=== PATIENT | female | born 1960 | race Caucasian/White ===

== ENCOUNTER → 2017-09-26 16:30 | Day surgery (SDC) | payer BC, SELFPAY ==
--- NOTE | 2017-09-19 16:13 | EKG12_ITS ---
Test Reason : PRE-OP Blood Pressure : / mmHG Vent. Rate : 067 BPM Atrial Rate : 067 BPM P-R Int : 158 ms QRS Dur : 074 ms QT Int : 394 ms P-R-T Axes : 064 -24 019 degrees QTc Int : 416 ms Normal sinus rhythm Inferior infarct , age undetermined Cannot rule out Anterior infarct , age undetermined Abnormal ECG Confirmed by NATHALIA SARABIA, NADYA ([id number]), scientific editor SOL TERRY ([id number]) on 09/21/2017 11:45:06 AM Referred By: Dany Levine Confirmed By:NADYA SLOAN MD
[2017-09-19 17:10] LABS: Hemoglobin A1c 6.8 % (4.2-6.3)
[2017-09-19 17:16] LABS: Anion Gap 7 (5-15); BUN 21 mg/dL (7-18); BUN/Creat Ratio 18.3 RATIO (10-20); Calcium,Total 9.1 mg/dL (8.5-10.1); Chloride 105 mmol/L (98-107); Creatinine, Serum 1.15 mg/dL (0.55-1.02); EST Glomerular Filtration Rate 52 mL/min (>60); Est Glom Filt Rate - Afr Amer 62 mL/min (>60); Glucose 116 mg/dL (74-106); Potassium 4.3 mmol/L (3.5-5.1); Sodium Level 142 mmol/L (136-145)
[2017-09-26] VITALS (7 sets, daily range): BP systolic 132–173; BP diastolic 71–96; PULSE 51–69; RESP 16; TEMP 36.4–36.9; O2SAT 92–100; BMI 38.7
[2017-09-26] MEDS: Cefazolin 2 GM in 0.9% Normal Saline 100 ML IV (13:02)
--- NOTE | 2017-09-26 13:03 | DCINST_ITS ---
Discharge Diet: Light diet - advance as tolerated Discharge Activity: May Not Drive - for 2-3 days or while taking narcotic pain medications., - - Do not drive, work heavy equipment or sign legal documents for 24 hours. May shower in (days): 1 - with the bandage in place. Additional Activity Instructions:: Pain medication may cause nausea. You should typically eat light foods as you take your pain medications. Pain medication may also cause constipation. If this is a problem for you, please discuss with your doctor. Call your doctor if your incision/area has: Continuous Slow Oozing, Sudden Increased Bleeding, Increased Pain/ Swelling, Increased Redness, Foul Smelling Discharge Call your doctor if you observe: Fever of 101 or Higher Suture Line Care: Avoid Pulling/Pushing, Avoid Pinching/Bending Additional Dressing/Incision Instructions:: Leave operative bandaids on for 2 days. When you remove dressing, leave Steri-Strips on until your follow-up appointment, or until the Steri-Strips fall off on their own. Allergies/Adverse Reactions: Allergies diclofenac sodium [From Voltaren] Adverse Reaction (Verified 09/19/17 12:59) Nausea/Vom/Diarrhea nabumetone [From Relafen] Adverse Reaction (Verified 09/19/17 12:59) GI UPSET Medications to take at Discharge Clonidine HCl [Catapres] 0.1 mg PO BID 07/22/14 traZODone [Desyrel] 50 mg PO QHS 10/14/14 Celecoxib [Celebrex] 200 mg PO DAILY 03/16/16 Atorvastatin Calcium [Lipitor] 20 mg PO QHS 04/15/16 Lactobacillus acidophilus 1.5 mg (250 million cell) capsule 100 mmu cells PO QDAY 09/18/17 aspirin 81 mg tablet,delayed release 81 mg PO QDAY 09/18/17 calcium carbonate 600 mg calcium (1,500 mg) tablet 600 mg PO BID tab 09/18/17 levothyroxine 137 mcg capsule 137 mcg PO QDAY 09/18/17 rizatriptan 10 mg tablet 10 mg PO PRN PRN 09/18/17 Calcium Carbonate [Calcium] 500 mg PO DAILY 09/19/17 Oxycodone HCl/Acetaminophen [Percocet 5/325] 1 - 2 tab PO Q4H PRN PRN 4 Days # 30 tab 09/26/17 The following prescriptions were given: Oxycodone HCl/Acetaminophen [Percocet 5/325] 1 - 2 tab PO Q4H PRN PRN 4 Days # 30 tab PRN Reason: Pain Primary Care Physician: Rea Escobar MD [Primary Care Provider] - Test Results: Test results from this visit will be discussed in further detail at your follow- up appointment, if applicable. Please Follow Up With: Dany Levine MD - Please call [phone] to schedule an appointment. When: 7 days after your surgery.
--- NOTE | 2017-09-26 13:03 | PCM.OPRPT ---
Problem List (1) Calculus of gallbladder with chronic cholecystitis without obstruction Status: Acute (2) Right upper quadrant pain Status: Acute Report of Operation Date of Procedure: 09/26/17 Pre-Operative Diagnosis: k80.10 calculus of the gallbladder without biliary obstruction. R10.11 upper quadrant abdominal pain Surgery/Procedure Performed:: Laparoscopic cholecystectomy Type of Anesthesia:: General Anesthesiologist: Naif Aceves Estimated Blood Loss (mL): < 25 cc Description of Procedure: Patient was brought in the operating room. Placed in the supine position. Under excellent general endotracheal Bashan the abdomen was sterilely prepped and draped in usual fashion. Local was injected in for umbilical. Dissection was carried down to the fascia. The fascia was grasped with a [place]. Varies needle was placed inside the abdomen. The abdomen was insufflated to 15 torr. A 10/12 trocar was placed without difficulty. Patient was placed in the head up and rotated to the left position. A subxiphoid #5 trocar was placed, inferior to this another #5 trocar was placed, laterally a #5 trocar was placed. All these under direct visualization without injury to underlying structures. Patient had moderate amount of adhesions which were taken down from the gallbladder with use of electrocautery fundus of the gallbladder was grasped retracted in a cephalad direction infundibulum was grasped retracted laterally I dissected out the cystic duct was hemoclips proximally and distally and ligated the duct identified the cystic artery placed hemoclips proximally distally ligated the artery deliver the gallbladder from the gallbladder bed in the process of doing this I placed another Hemoclip on the posterior branch of the cystic artery. Deliver the gallbladder from the gallbladder bed with use of electrocautery and had excellent hemostasis and no spillage of bile or stones I placed a specimen in a specimen bag and delivered it through the umbilical port without difficulty I reirrigated the right upper quadrant good hemostasis was noted to remove the trochars under direct visualization good hemostasis was noted I closed the fascia the umbilical port with a [id number] stitch of 0 Vicryl skin incisions were closed with some particular stitches of 4-0 Monocryl Steri-Strips are applied sterile dressings were applied the patient tolerated the procedure well. - Admit VTE Documentation VTE Present on Admission: No VTE Mechan Device Prophylaxis: SCD's VTE Pharm Prophylaxis ordered?: No Reason prophylaxis not ordered:: Treatment Not Indicated
--- NOTE | 2017-09-26 13:20 | GALL_PTH ---
PATIENT: NIMESH KOROMA LOC: [facility] – [place] U#:[id number] AGE/SX: 57/F ROOM: RE09/26/[address]: Dr. Dany Levine MD : 1960 BED: DIS: 09/26/2017 SPEC #: [id number] RECD: 09/26/17 16:03 STATUS: FREDRICK BRANT #: [id number] KITTY: 09/26/17 13:[address]: Dany Levine DEPT: SURGICAL PATHOLOGY RECD BY: Altaf Perez ENTERED: 09/27/17 12:58 SP TYPE: CASTRO POOLE DR: Dr. Rea Escobar MD Tissues: Gallbladder, NOS Procedures: Surgery Specimen Level III HEADER OPERATION: Laparoscopic cholecystectomy PRE-OP DIAGNOSIS: Calculus of gallbladder with chronic cholecystitis without obstruction, right upper quadrant abdominal pain TISSUE SUBMITTED: Gallbladder MICROSCOPIC DIAGNOSIS Gallbladder, cholecystectomy: Cholesterolosis, mild chronic cholecystitis and cholelithiasis. AM:stephanie 09/28/17 MICROSCOPIC DESCRIPTION Slides are reviewed. GROSS DESCRIPTION Received is one container labeled with the patient's name and designated gallbladder. The specimen consists of a gallbladder measuring 9 cm in length and up to 3.5 cm in diameter. The external surface is pink-mendes, smooth and glistening for the most part. Focally it is granular, hemorrhagic and contains cautery artifact. The gallbladder contains green-yellow mucoid bile and multiple, multifaceted black stones measuring in aggregate 5 x 5 x 2 cm and 0.4 to 1 cm in greatest dimension. The mucosa is bile-stained and without any mass lesions. The gallbladder wall measures up to 0.1 cm in thickness. Mastercam Programmer sections from the gallbladder and the cystic duct are submitted in one cassette. / SJ:stephanie 09/27/17 TC:3 CPT: 49638
[2017-09-26] MEDS: Bupivacaine Mpf 0.5% 30 ML VIAL (13:41)
[2017-09-26 15:16] LABS: Bedside Glucose 121 mg/dL (70-110)
== END | disposition home or self-care (01) ==
LOC: SDC 16:30
PROVIDERS: Family Provider Internal Medicine; PCP Internal Medicine; Visit Provider Surgery
PROC: (CPT 47562; principal; 2017-09-26 13:00)
DX: K80.10 Calculus of gallbladder with chronic cholecystitis without obstruction (principal); R10.11 Right upper quadrant pain; E11.9 Type 2 diabetes mellitus without complications; E78.00 Pure hypercholesterolemia, unspecified
CPT/HCPCS: 00790; 47562; 36415; 80048; 82962; 83036; 84443; 88304; 93005; J7120; J2405

== ENCOUNTER → 2018-04-12 17:58 | Outpatient (CLI) | payer BC, SELFPAY | PROVIDERS: Family Provider Internal Medicine; PCP Internal Medicine; Referring Provider Nurse Practitioner Adult Health; Visit Provider Nurse Practitioner Adult Health | DX: R30.0 Dysuria (principal); R35.0 Frequency of micturition | CPT/HCPCS: 87086; 87088 ==

== ENCOUNTER → 2018-05-01 10:53 | Outpatient (CLI) | payer BC, SELFPAY ==
--- NOTE | 2018-05-01 10:57 | ART_ITS ---
Reason For Study: I89.8 Procedure A bilateral lower extremity continuous wave Doppler with analog waveform analysis,segmental pressures,and ankle brachial indexes without exercise. Left Segmental Pressures Left brachial= 159mmHg. Left posterior tibial artery = 176mmHg. Left dorsalis pedis artery = 167mmHg. Left digit = 122 mmHg. The left dorsalis pedis waveforms are triphasic. The left posterior tibial artery waveforms are triphasic. Right Segmental Pressures Right brachial= 147mmHg. Right posterior tibial artery = 171mmHg. Right dorsalis pedis artery = 170mmHg. Right digit = 129 mmHg. The right dorsalis pedis waveforms are triphasic. The right posterior tibial artery waveforms are triphasic. Indices The right ankle brachial index by the dorsalis pedis is 1.1. The right ankle brachial index by the posterior tibial artery is 1.1. The right digital-brachial index is .81. The left ankle brachial index by the dorsalis pedis is 1.1. The left ankle brachial index by the posterior tibial artery is 1.1. The left digital-brachial index is .77. Interpretation Summary Triphasic Doppler waveforms are noted at ankle level bilaterally. Pulse-volume waveform amplitudes appear satisfactory at all levels bilaterally. Resting ankle-brachial indices are normal bilaterally. Digital-brachial indices are bilaterally normal. There is no evidence of significant atherosclerotic peripheral arterial occlusive disease bilaterally. Ordering Physician: Bernarda Brown Referring Physician: Bernarda Brown Performed By: Josephine Macdonald RVT
== END ==
PROVIDERS: Family Provider Internal Medicine; PCP Internal Medicine; Referring Provider Podiatrist Foot & Ankle Surgery; Visit Provider Podiatrist Foot & Ankle Surgery
DX: I87.2 Venous insufficiency (chronic) (peripheral) (principal)
CPT/HCPCS: 93923

== ENCOUNTER → 2018-05-15 12:24 | Outpatient (CLI) | payer BC, SELFPAY ==
[2017-09-26 11:14] VITALS: BMI 38.7
== END ==
PROVIDERS: Family Provider Internal Medicine; PCP Internal Medicine; Referring Provider Podiatrist Foot & Ankle Surgery; Visit Provider Podiatrist Foot & Ankle Surgery
DX: M79.671 Pain in right foot (principal)
CPT/HCPCS: 36415; 82306

== ENCOUNTER 2018-05-29 23:45 | Observation (INO) | payer BC, SELFPAY ==
--- NOTE | 2018-05-23 13:13 | RAD_ITS ---
STUDY: X-RAY CHEST REASON FOR EXAM: Female, 58 years old. Preoperative evaluation. TECHNIQUE: PA and lateral views of the chest. COMPARISON: Comparison is made with prior study dated March 16, 2016. FINDINGS: The lungs are clear and expanded. Scattered calcified granulomas. There is no demonstrated pleural abnormality. Normal size heart. Normal mediastinum and angela. Normal visualized pulmonary arteries. Normal visualized aortic arch and descending thoracic aorta. There are degenerative changes of the visualized thoracic spine. Normal visualized ribs, clavicles, and shoulders. There is no demonstrated abnormality of the visualized soft tissue structures of the upper abdomen. RAD/Chest PA and Lateral IMPRESSION: Normal x-ray examination of the chest. Electronically Signed: Suleiman Garcia, at 13:43 EDT , Service support ,
--- NOTE | 2018-05-23 13:30 | EKG12_ITS ---
Test Reason : PREOP Blood Pressure : / mmHG Vent. Rate : 062 BPM Atrial Rate : 062 BPM P-R Int : 162 ms QRS Dur : 080 ms QT Int : 412 ms P-R-T Axes : 047 -22 033 degrees QTc Int : 418 ms Normal sinus rhythm Cannot rule out Anterior infarct (cited on or before 19-SEP-2017), age undetermined Abnormal ECG Confirmed by RIAZ LEMONS MD ([id number]), commercial production editor JITENDRA LANCASTER ([id number]) on 05/25/2018 10:56:52 AM Referred By: Bernarda Brown Confirmed By:RIAZ LEMONS MD
[2018-05-23 13:37] LABS: Absolute Lymphocyte Count 2.66 X10^3/ul (0.83-4.51); Absolute Neutrophil Count 3.7 X10^3/uL (2.0-7.7); Basophil# 0.02 X10^3/uL; Basophil% 0.3 % (0-1); Eosinophil# 0.13 X10^3/uL; Eosinophils% 1.9 % (0-5); Hematocrit 44.9 % (37-47); Hemoglobin 14.5 g/dl (12.0-15.0); Lymphocyte # 2.66 X10^3/ul (4.0); Lymphocyte % 38.7 % (19-41); Mean Corp Hgb Conc 32.3 g/gl (32-36); Mean Corpuscular Volume 89.8 fL (81-99); Mean Platelet Vol. 10.3 fl (6.2-12.0); Monocyte% 5.8 % (0-10); Neutrophil # 3.67 X10^3/uL (2.7-7.7); Neutrophil % 53.3 % (47-70); Platelet Count 253 K/mm3 (150-450); RBC Distribution Width CV 13.3 % (11.6-14.6); RBC Distribution Width SD 43.6 fl (35.1-43.9); White Blood Count 6.9 K/mm3 (4.4-11.0)
[2018-05-23 13:38] LABS: POSITIVE COUNT NO; POSITIVE DIFFERENTIAL NO; POSITIVE MORPHOLOGY NO
[2018-05-29 09:59] VITALS: BP 127/82; PULSE 73; RESP 16; TEMP 36.5; O2SAT 96; BMI 38.1
[2018-05-29 10:26] LABS: Bedside Glucose 134 mg/dL (70-110)
[2018-05-29] MEDS: Cefazolin 2 GM in 0.9% Normal Saline 100 ML IV (16:25)
--- NOTE | 2018-05-29 16:35 | RAD_ITS ---
STUDY: X-RAY - RIGHT FOOT CLINICAL: Female, 58 years old. Subtalar and talonavicular joint fusion TECHNIQUE: The C-arm is used. COMPARISON: None. FINDINGS: There are multiple sequential images presented. The final image shows 2 medullary screws traversing the subtalar joints and starting from the posterior margin of the os calcis. The tips are within the anterior process of the talus. A plate and multiple screws bridging the talus and navicular bone are also seen. The hardware is in good position. There are no acute fractures. There is a prominent plantar calcaneal spur. RAD/Foot min 3 Views IMPRESSION: Subtalar and talonavicular joint fusion A prominent plantar calcaneal spur Electronically Signed: Ti Chaudhari MD at 2:12 EDT Tel , Service support ,
[2018-05-29] MEDS: Calcium Chloride 1 GM/10 ML Syringe (17:18)
[2018-05-29] MEDS: Heparin 10,000 UNITS/10 ML Vial 10000 UNITS (17:19)
[2018-05-29 23:24] VITALS: BP 127/82; BP 156/91; PULSE 84; RESP 18; TEMP 36.3; O2SAT 98
--- NOTE | 2018-05-29 23:29 | RAD_ITS ---
STUDY: X-RAY - RIGHT TIBIA AND FIBULA REASON FOR EXAM: Female, 58 years old. Status post bmac proximal tibia TECHNIQUE: Or focal view(s) of the tibia and fibula were obtained. COMPARISON: None. FINDINGS: 3 small visualized proximal are seen in the anterior proximal aspect of the tibia. The adjacent soft tissues slightly irregular. There are mild degenerative changes of the knee Electronically Signed: Ti Chaudhari MD at 4:44 EDT Tel , Service support , RAD/Tibia & Fibula 2 Views
--- NOTE | 2018-05-29 23:32 | RAD_ITS ---
STUDY: X-RAY - RIGHT CALCANEUS REASON FOR EXAM: Female, 58 years old. Subtalar joint fusion. Talonavicular joint fusion TECHNIQUE: 2 view(s) of the calcaneus were obtained. COMPARISON: None. FINDINGS: There is evidence of the subtalar joint fusion demonstrated by the presence of screws running from the posterior margin of the os calcis through the subtalar joints with their tips in the talus. A plate and screws also identified bridging the navicular and talus. There is a prominent plantar calcaneal spur. There are no fractures. A backsliding simply RAD/Calcaneus min 2 Views IMPRESSION: Subtalar joint fusion.. Talonavicular joint fusion Electronically Signed: Ti Chaudhari MD at 4:13 EDT Tel , Service support ,
--- NOTE | 2018-05-29 23:33 | PCM.CONS.GEN ---
Reason for Consult Date of Consultation: 05/29/18 Reason for Consultation: Medical management. History of Present Illness: Medical diagnoses: Diabetes mellitus type 2, diet controlled Obesity GERD Hypertension Migraines Hypothyroidism status post thyroid resection secondary to precancer The patient is a 58 y/o F w/ PMHx: Diet controlled Diabetes mellitus type II, Obesity, GERD, HTN, Migraines, Hypothyroidism s/p thyroid resection secondary to precancer who presents to the [facility] on 05/29/18 for planned R flat foot reconstruction per Dr. Brown. Operative intervention trended late and patient transitioned to PACU nearing midnight; therefore, patient admitted for observation overnight and requested Medical co-admission assistance. Patient in PACU receiving block to assist in pain control. In the PACU aside from this patient denies any acute complaints. Past Medical History Medical History: Medical History (Last Reviewed 05/29/18 @ 23:48 by Bernarda Brown DPM) Hypercholesteremia (Acute) E78.00 Nontoxic nodular goiter (Acute) E04.9 Greater trochanteric bursitis (Acute) M70.60 Lumbago (Acute) M54.5 Dysmetabolic syndrome X (Acute) E88.81 DJD (degenerative joint disease) of pelvis (Acute) M16.10 Diabetes mellitus (Acute) E11.9 DDD (degenerative disc disease), lumbar (Acute) M51.36 Common migraine without intractability (Acute) G43.009 Allergies cortisone Adverse Reaction (Verified 05/29/18 09:58) Other lightheaded, injection site burning diclofenac sodium [From Voltaren] Adverse Reaction (Verified 05/29/18 09:58) Nausea/Vom/Diarrhea nabumetone [From Relafen] Adverse Reaction (Verified 05/29/18 09:58) GI UPSET Home Medications: Ambulatory Orders Medication Instructions Recorded Clonidine HCl [Catapres] 0.1 mg PO QHS 07/22/14 traZODone [Desyrel] 50 mg PO QHS 10/14/14 Celecoxib [Celebrex] 200 mg PO DAILY 03/16/16 Atorvastatin Calcium [Lipitor] 20 mg PO QHS 04/15/16 levothyroxine 137 mcg capsule 125 mcg PO QHS 09/18/17 rizatriptan 10 mg tablet 10 mg PO PRN PRN 09/18/17 Calcium Carbonate [Calcium] 600 mg PO DAILY 09/19/17 Oxycodone [Oxyir] 5 mg PO Q6H PRN PRN 7 Days #30 tab 05/29/18 Surgical History: Surgical History (Last Reviewed 05/29/18 @ 23:48 by Bernarda Brown DPM) Hx of cholecystectomy (Acute) Z90.49 09/26/17 History of back surgery (Acute) Z98.890 History of right hip replacement (Acute) Z96.641 01/2016 History of left hip replacement (Acute) Z96.642 10/2011 Hx of thyroidectomy (Acute) E89.0 2008 Surgical History: - - Thyroidectomy, bilateral total hip replacement, back surgery, cholecystectomy, recent right foot reconstruction. 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 Paternal Family History: Family History (Last Reviewed 10/10/17 @ 09:50 by Robyn Schneider) Mother Malignant hyperthermia due to anesthesia Diabetes Heart disease Kidney disease CVA (cerebral vascular accident) Father Thyroid disorder Brother Asthma Cancer History Items: - - Father with a history of thyroid disorder. Review of Systems Constitutional: Reports: Malaise, Weakness, Fatigue. Denies: Chills, Fever, Weight Change HEENT: Denies: Head Aches, Sinus Congestion, Sinus Drainage Cardiovascular: Denies: Chest Pain, Palpitations Respiratory: Denies: Cough, Shortness of breath at rest, Sputum production Gastrointestinal: Denies: Abdominal Pain, Nausea, Vomiting Genitourinary: Denies: Dysuria Musculoskeletal: Reports: Foot Pain, Joint Pain, Joint stiffness, Joint swelling, Joint Tenderness, Leg Pain Skin: Denies: Rash, Wounds Neurological: Denies: Numbness, Tingling, Focal weakness Psychiatric: Denies: Anxiety, Depression, Homicidal Ideations, Suicidal Ideations Hematologic/ Lymphatic: Denies: Easy Bruising, Easy Bleeding Subjective: Seated upright in the PACU bed, fatigued appearance, block currently being performed. Objective: Physical Examination: General: awake, alert, oriented x 3 and cooperative, seated upright in the PACU bed block being currently performed for right foot pain. Skin: normal color, turgor, no icterus, cyanosis, status post recent right foot reconstructive surgery, dressings in place. HEENT: AT/NC, EOMI, PERRLA, moderately dry MM, no carotid bruits or JVD noted. Lungs: CTA bilaterally, moderate effort, mild decrease BL bases, no rales, ronchi or wheezing. Heart: Regular rate and rhythm; no gallop, rub audible. Abdomen: soft, obese, NTTP, ND, normal BS, no HSM. Extremities: no cyanosis, clubbing, s/p R reconstructive foot surgery with dressing in place, recent block performed. Neurological: patient awake, alert, oriented x 3; cognitive function intact; pupils equally reactive to light and accomodation; cranial nerves II-XII grossly normal, moving extremities except recent block performed on right lower extremity, reduced as expected, strength accordingly severely globally decreased given recent operative interventions. Psychiatric: affect appears fatigued, mildly flat, no acute evidence of depressive or anxiety feelings. - Physical Exam Vital Signs Temp Pulse Resp BP Pulse Ox 97.7 F L 73 16 127/82 H 96 05/29/18 09:59 05/29/18 09:59 05/29/18 09:59 05/29/18 09:59 05/29/18 09:59 Oxygen Delivery Method Room Air Weight: 229 lb 0.964 oz Body Mass Index (BMI) 38.1 Finger Stick Blood Glucose 136 POC Glucose 05/29/18 10:04 POC Glucose 134 H Assessment/Plan All Active Problems (Last Reviewed 05/29/18 @ 23:48 by Bernarda Brown DPM) Hx of cholecystectomy (Acute) Calculus of gallbladder with chronic cholecystitis without obstruction (Acute) Right upper quadrant pain (Acute) History of back surgery (Acute) History of right hip replacement (Acute) History of left hip replacement (Acute) Hx of thyroidectomy (Acute) Hypercholesteremia (Acute) Nontoxic nodular goiter (Acute) Greater trochanteric bursitis (Acute) Lumbago (Acute) Dysmetabolic syndrome X (Acute) DJD (degenerative joint disease) of pelvis (Acute) Diabetes mellitus (Acute) DDD (degenerative disc disease), lumbar (Acute) Common migraine without intractability (Acute) The patient is a 58 y/o F w/ PMHx: Diet controlled Diabetes mellitus type II, Obesity, GERD, HTN, Migraines, Hypothyroidism s/p thyroid resection secondary to precancer who presents to the [facility] on 05/29/18 for planned R flat foot reconstruction per Dr. Brown. (1) Chronic right foot pain, Flat Footed: Failed conservative therapies and treatments, admitted per Dr. Brown with Hospitalist co-admitting, s/p R foot reconstructive surgery, post-operative pain management, bowel regimen, DVT Prophylaxis, PT/OT/CM per Podiatric surgery discretion. Nonweightbearing, elevation right lower extremity, icing, PT consulted for crutch training. (2) Diabetes mellitus type II: Not on regimen, diet controlled, ADA diet, accu checks w/ ISS. (3) Hypertension: Continue home regimen including clonidine, PRN hydralazine. (4) Hypothyroidism: Status post history of thyroid resection secondary to precancerous findings, will continue home synthroid regimen. (5) Obesity: Weight loss and lifestyle changes encouraged. (6) Migraines: We will continue PRN abortive agents. (7) GERD: PPI. (8) DVT prophylaxis: Per discretion of injury, podiatry given recent surgical intervention. Code Visit Office Visits / Consults: [id number] OP Consult L3
--- NOTE | 2018-05-29 23:39 | DCINST_ITS ---
Discharge Activity: May Not Drive, May not drive while taking narcotic pain medications., May Not Shower, Use Walker, Use Crutches Ice area for (Minutes): 20 - apply ice behind right knee 20 minutes of each hour Weight Bearing Status: No weight bearing Keep extremity elevated above heart level: Operative Extremity Call your doctor if your incision/area has: Sudden Increased Bleeding Call your doctor if you observe: Fever of 101 or Higher, Shortness of breath, Dizziness, Chest pain, Prolonged hiccoughing, Increased palpitations (irregular heartbeat), Calf discomfort, Uncontrolled pain Cleanse incision/area with: Keep Dressing Clean & Dry Allergies/Adverse Reactions: Allergies cortisone Adverse Reaction (Verified 05/29/18 09:58) Other lightheaded, injection site burning diclofenac sodium [From Voltaren] Adverse Reaction (Verified 05/29/18 09:58) Nausea/Vom/Diarrhea nabumetone [From Relafen] Adverse Reaction (Verified 05/29/18 09:58) GI UPSET Medications to take at Discharge Clonidine HCl [Catapres] 0.1 mg PO QHS 07/22/14 traZODone [Desyrel] 50 mg PO QHS 10/14/14 Celecoxib [Celebrex] 200 mg PO DAILY 03/16/16 Atorvastatin Calcium [Lipitor] 20 mg PO QHS 04/15/16 levothyroxine 137 mcg capsule 125 mcg PO QHS 09/18/17 rizatriptan 10 mg tablet 10 mg PO PRN PRN 09/18/17 Calcium Carbonate [Calcium] 600 mg PO DAILY 09/19/17 Oxycodone [Oxyir] 5 mg PO Q6H PRN PRN 7 Days #30 tab 05/29/18 The following prescriptions were given: Oxycodone [Oxyir] 5 mg PO Q6H PRN PRN 7 Days #30 tab PRN Reason: Pain Primary Care Physician: Rea Escobar MD [Primary Care Provider] - Test Results: Test results from this visit will be discussed in further detail at your follow- up appointment, if applicable. Please Follow Up With: Bernarda Brown DPM - please follow up at your previousy scheduled post operative appointment next week.
--- NOTE | 2018-05-29 23:39 | PCM.OPRPT ---
Report of Operation Date of Procedure: 05/29/18 Pre-Operative Diagnosis: R pes plano valgus deformity with primary OA, RLE equinus Post-Operative Diagnosis: same Surgery/Procedure Performed:: R bone marrow aspiration harvest proximal tibia with autologous transfer, R Andrade gastroc Recession, R STJ fusion, R TN fusion, R bone exostectomy dorsal CN and 1st TMT invasive cardiovascular technologist: Corrie Banda Type of Anesthesia:: General/Regional Estimated Blood Loss (mL): 300mL Description of Procedure: Indications: Pt is a 58 yo F with a painful right pes plano valgus foot type resulting in multi joint primary osteoarthritis and concurrent equinus. She presented to my office in October of last year. She has failed conservative therapies and presents today for surgical intervention. Prior to surgery she was evaluated by her primary care physician and underwent pre operative testing to include lab work, advanced imaging and noninvasive vascular studies. All risks, complications, and alternatives were discussed with the patient, and the patient signed an informed consent. No guarantees were given. Procedure: On05/29/2018, Florecita Limon was visually and verbally identified in the preoperative holding area. The consent form was again reviewed with the patient, as were all risks, complications, and alternatives and the patient wished to proceed with the proposed surgery. The right lower extremity was marked as the correct operative extremity. The patient was brought to the operating room and placed on the operating room table in the normal SUPINE position. After induction by anesthesia, a surgical time out was performed and all present were in agreement. a pneumatic thigh tourniquet was then placed. At this time the right lower extremity was prepped and draped in the usual sterile fashion. Utilizing the [employer] Bone marrow aspiration concentration system, a stab incision was made with a #15 blade and approximately 50 cc of bone marrow was harvested from the proximal tibia just distal and medial to the tibial tuberosity. This BMA will be used for autologous transfer to the planned arthrodesis sites. the stab incision was closed with 3.0 prolene After elevation and exsanguination with an esmarch the tourniquet was inflated to 300 mmHg. At this time attention was directed to the medial calf at the myotendinous junction of the gastroc. Using a #15 blade a longitudinal incision was made.The incision was bluntly carried deep through the subcutaneous tissues with careful attention paid to all bleeders, which were clamped and tied or bovied as necessary. All vital neurovascular structures were retracted. The fascia was incised in the same direction. The ankle was held in a dorsiflexed position, which was noted to be limited. With tension applied, and using a #15 blade and scissors a Andrade type gastroc recession was performed. Increased dorsiflexion was noted. The incision was flushed with copious amounts of normal sterile saline and the fascia was closed with 2.0 vicryl, the subcutaneous tissues with 3.0 vicryl and 3.0 prolene for the skin. At this time attention was directed to the lateral foot. Using a #15 blade a curvilinear incision was made from the tip of the fibula to the base of the 4th metatarsal. The incision was bluntly carried deep through the subcutaneous tissues with careful attention paid to all bleeders, which were clamped and tied or bovied as necessary. All vital neurovascular structures were retracted. The EDB muscle belly was reflected distally. Dissection was continued and juxta-articular lipoma was partially excised to improve visualization. The subtalar joint was identified and noted to be narrowed with arthritic changes to the joint surface. The joint was distracted with a lamina cloth finishing range operator chief. Using a combination of osteotomes, burrs, curettes the thinned cartilage was removed until healthy bleeding bone of the subtalar joint surfaces was noted. the joint was flushed with copious amounts of diana sterile saline. At this time attention was directed to the medial dorsal foot over rudolph talonavicular joint. Using a #15 blade a longitudinal incision was made parallel to the TA tendon.The incision was bluntly carried deep through the subcutaneous tissues with careful attention paid to all bleeders, which were clamped and tied or bovied as necessary. All vital neurovascular structures were retracted. THe talonavicular joint was identified and the capsule was incised. The joint was significantly subluxed as was none secondary to the deformity. Using a combination of osteotomes, burrs, curettes the thinned cartilage was removed until healthy bleeding bone of the talonavicular joint surfaces was noted. The joint was flushed with copious amounts of normal sterile saline. Both the subtalar and talonavicular joints were reduced and held with temporary fixation which was confirmed by direct visualization as well as on multiple views of intra operative fluoroscopy. Using intraoperative fluoroscopy I then placed two [place] partially threaded cannulated screws from the posterior plantar calcaneus into the talar neck with all threads crossing the arthrodesis site. The subtalar site was packed with a mixture of the BMAC, [employer] medical Augment, crushed cancellous bone and 15 cc of peripheral blood. Good fixation was noted with compression of the joint. Alignment was confirmed. Using intraoperative fluoroscopy I then placed a Declan [place] compression plate across the TN joint with locking screws per launch check out's guidelines . Plate placement and screw length as well as the continued reduction of the TN joint was confirmed by direct visualization and intraoperative fluoroscopy. tHe TN joint was also packed with a mixture of the BMAC, [employer] medical Augment, crushed cancellous bone and 15 cc of peripheral blood. Good fixation was noted with compression of the joint. Alignment was confirmed. Using ronguers I removed dorsal exostosis from both the dorsal CN and 1st TMT joint that was still prominent after the re-alignment. This was then smoothed to a normal contour with a hand rasp. closure was the initiated for both incisions. 2.0 vicryl was used for deep tissues after deep closure I did place the remaining PPP from the BMAC spin down along both incisions to aid in healing and for its antimicrobial properties. I continued closure with 3.0 vicryl for subcutaneous tissue. and 3.0 prolene for skin. Betadine soaked adaptic and dry sterile dressings were applied. A multilayer compressive dressing was applied to aid in reduction of pain and edema and a well passed posterior splint was then applied. Total tourniquet time was 120 minutes with immediate capillary refill noted to all digits upon deflation. Intra operative fluoroscopy was utilized throughout the case, > 1 hour, to aid in visualization and confirmation of fracture reduction and screw and plate fixations. Interpretation of the images was vital to my decision making process. The patient tolerated the procedure and anesthesia well. The patient was then transported to the postanesthesia care unit by a member of the anesthesia team and myself with all vital signs stable and neurovascular status of the right lower extremity equal to pre-operative levels. At the end of the case all sponge, needle and instrument counts were found to be correct. Grafts/Implants Used: [place] Plate and screws, [employer] Augment, Isto BMAC - Complications none - Admit VTE Documentation VTE Present on Admission: No VTE Mechan Device Prophylaxis: SCD's, Knee High NICOLAS Hose VTE Pharm Prophylaxis ordered?: Yes
--- NOTE | 2018-05-29 23:43 | OP.PCM_ITS ---
Report of Operation Date of Procedure: 05/29/18 Pre-Operative Diagnosis: R pes plano valgus deformity with primary OA, RLE equinus Post-Operative Diagnosis: same Surgery/Procedure Performed:: R bone marrow aspiration harvest proximal tibia with autologous transfer, R Andrade gastroc Recession, R STJ fusion, R TN fusion, R bone exostectomy dorsal CN and 1st TMT software build engineer: Corrie Banda Type of Anesthesia:: General/Regional Estimated Blood Loss (mL): 300mL Description of Procedure: Indications: Pt is a 58 yo F with a painful right pes plano valgus foot type resulting in multi joint primary osteoarthritis and concurrent equinus. She presented to my office in October of last year. She has failed conservative therapies and presents today for surgical intervention. Prior to surgery she was evaluated by her primary care physician and underwent pre operative testing to include lab work, advanced imaging and noninvasive vascular studies. All risks, complications, and alternatives were discussed with the patient, and the patient signed an informed consent. No guarantees were given. Procedure: On05/29/2018, Florecita Limon was visually and verbally identified in the preoperative holding area. The consent form was again reviewed with the patient, as were all risks, complications, and alternatives and the patient wished to proceed with the proposed surgery. The right lower extremity was marked as the correct operative extremity. The patient was brought to the operating room and placed on the operating room table in the normal SUPINE position. After induction by anesthesia, a surgical time out was performed and all present were in agreement. a pneumatic thigh tourniquet was then placed. At this time the right lower extremity was prepped and draped in the usual sterile fashion. Utilizing the [employer] Bone marrow aspiration concentration system, a stab incision was made with a #15 blade and approximately 50 cc of bone marrow was harvested from the proximal tibia just distal and medial to the tibial tuberosity. This BMA will be used for autologous transfer to the planned arthrodesis sites. the stab incision was closed with 3.0 prolene After elevation and exsanguination with an esmarch the tourniquet was inflated to 300 mmHg. At this time attention was directed to the medial calf at the myotendinous junction of the gastroc. Using a #15 blade a longitudinal incision was made.The incision was bluntly carried deep through the subcutaneous tissues with careful attention paid to all bleeders, which were clamped and tied or bovied as necessary. All vital neurovascular structures were retracted. The fascia was incised in the same direction. The ankle was held in a dorsiflexed position, which was noted to be limited. With tension applied, and using a #15 blade and scissors a Andrade type gastroc recession was performed. Increased dorsiflexion was noted. The incision was flushed with copious amounts of normal sterile sa line and the fascia was closed with 2.0 vicryl, the subcutaneous tissues with 3.0 vicryl and 3.0 prolene for the skin. At this time attention was directed to the lateral foot. Using a #15 blade a cu rvilinear incision was made from the tip of the fibula to the base of the 4th metatarsal. The incision was bluntly carried deep through the subcutaneous tissues with careful attention paid to all bleeders, which were clamped and tied or bovied as necessary. All vital neurovascular structures were retracted. The EDB muscle belly was reflected distally. Dissection was continued and juxta-articular lipoma was partially excised to improve visualization. The subtalar joint was identified and noted to be narrowed with arthritic changes to the joint surface. The joint was distracted with a lamina executive vice president and chief financial officer. Using a combination of osteotomes, burrs, curettes the thinned cartilage was removed until healthy bleeding bone of the subtalar joint surfaces was noted. the joint was flushed with copious amounts of diana sterile saline. At this time attention was directed to the medial dorsal foot over rudolph talonavicular joint. Using a #15 blade a longitudinal incision was made parallel to the TA tendon.The incision was bluntly carried deep through the subcutaneous tissues with careful attention paid to all bleeders, which were clamped and tied or bovied as necessary. All vital neurovascular structures were retracted. THe talonavicular joint was identified and the capsule was incised. The joint was significantly subluxed as was none secondary to the deformity. Using a combination of osteotomes, burrs, curettes the thinned cartilage was removed until healthy bleeding bone of the talonavicular joint surfaces was noted. The joint was flushed with copious amounts of normal sterile saline. Both the subtalar and talonavicular joints were reduced and held with temporary fixation which was confirmed by direct visualization as well as on multiple views of intra operative fluoroscopy. Using intraoperative fluoroscopy I then placed two [place] partially threaded cannulated screws from the posterior plantar calcaneus into the talar neck with all threads crossing the arthrodesis site. The subtalar site was packed with a mixture of the BMAC, [employer] medical Augment, crushed cancellous bone and 15 cc of peripheral blood. Good fixation was noted with compression of the joint. Alignment was confirmed. Using intraoperative fluoroscopy I then placed a [place] compression plate across the TN joint with locking screws per fleet director's guidelines . Plate placement and screw length as well as the continued reduction of the TN joint was confirmed by direct visualization and intraoperative fluoroscopy. tHe TN joint was also packed with a mixture of the BMAC, [employer] medical Augment, crushed cancellous bone and 15 cc of peripheral blood. Good fixation was noted with compression of the joint. Alignment was confirmed. Using ronguers I removed dorsal exostosis from both the dorsal CN and 1st TMT joint that was still prominent after the re-alignment. This was then smoothed to a normal contour with a hand rasp. closure was the initiated for both incisions. 2.0 vicryl was used for deep tissues after deep closure I did place the remaining PPP from the BMAC spin down along both incisions to aid in healing and for its antimicrobial properties. I continued closure with 3.0 vicryl for subcutaneous tissue. and 3.0 prolene for skin. Betadine soaked adaptic and dry sterile dressings were applied. A multilayer compressive dressing was applied to aid in reduction of pain and edema and a well passed posterior splint was then applied. Total tourniquet time was 120 minutes with immediate capillary refill noted to all digits upon deflation. Intra operative fluoroscopy was utilized throughout the case, > 1 hour, to aid in visualization and confirmation of fracture reduction and screw and plate fixations. Interpretation of the images was vital to my decision making process. The patient tolerated the procedure and anesthesia well. The patient was then transported to the postanesthesia care unit by a member of the anesthesia team and myself with all vital signs stable and neurovascular status of the right lower extremity equal to pre-operative levels. At the end of the case all sponge, needle and instrument counts were found to be correct. Grafts/Implants Used: [place] Plate and screws, [employer] Augment, Isto BMAC - Complications none - Admit VTE Documentation VTE Present on Admission: No VTE Mechan Device Prophylaxis: SCD's, Knee High NICOLAS Hose VTE Pharm Prophylaxis ordered?: Yes
[2018-05-29 23:45] VITALS: BP 127/82; BP 140/89; PULSE 78; RESP 18; O2SAT 99
--- NOTE | 2018-05-29 23:46 | PCM.HP.STD ---
History of Present Illness Date of Admission: 05/29/18 Chief Complaint: post operative pain The patient is a 58 year old F who presented for significant R flat foot deformity and primary osteoarthritis,. She failed outpatient conservative measures and had a R flat foot reconstruction today with a Andrade Gastroc Recession. She is being admitted for post operative pain management and crutch/walker training by PT. [] Past Medical History Medical History: Medical History (Last Reviewed 05/29/18 @ 23:48 by Bernarda Brown DPM) Hypercholesteremia (Acute) E78.00 Nontoxic nodular goiter (Acute) E04.9 Greater trochanteric bursitis (Acute) M70.60 Lumbago (Acute) M54.5 Dysmetabolic syndrome X (Acute) E88.81 DJD (degenerative joint disease) of pelvis (Acute) M16.10 Diabetes mellitus (Acute) E11.9 DDD (degenerative disc disease), lumbar (Acute) M51.36 Common migraine without intractability (Acute) G43.009 Allergies cortisone Adverse Reaction (Verified 05/29/18 09:58) Other lightheaded, injection site burning diclofenac sodium [From Voltaren] Adverse Reaction (Verified 05/29/18 09:58) Nausea/Vom/Diarrhea nabumetone [From Relafen] Adverse Reaction (Verified 05/29/18 09:58) GI UPSET Home Medications: Ambulatory Orders Medication Instructions Recorded Clonidine HCl [Catapres] 0.1 mg PO QHS 07/22/14 traZODone [Desyrel] 50 mg PO QHS 10/14/14 Celecoxib [Celebrex] 200 mg PO DAILY 03/16/16 Atorvastatin Calcium [Lipitor] 20 mg PO QHS 04/15/16 levothyroxine 137 mcg capsule 125 mcg PO QHS 09/18/17 rizatriptan 10 mg tablet 10 mg PO PRN PRN 09/18/17 Calcium Carbonate [Calcium] 600 mg PO DAILY 09/19/17 Oxycodone [Oxyir] 5 mg PO Q6H PRN PRN 7 Days #30 tab 05/29/18 Surgical History: Surgical History (Last Reviewed 05/29/18 @ 23:48 by Bernarda Brown DPM) Hx of cholecystectomy (Acute) Z90.49 09/26/17 History of back surgery (Acute) Z98.890 History of right hip replacement (Acute) Z96.641 01/2016 History of left hip replacement (Acute) Z96.642 10/2011 Hx of thyroidectomy (Acute) E89.0 2008 Smoking Status: Never smoker VTE Information - Inpt Only VTE Present on Admission: No VTE Mechan Device Prophylaxis: SCD's, Knee High NICOLAS Hose VTE Pharm Prophylaxis ordered?: Yes Subjective: RLE acute post operative pain, resting in pacu Objective: RLE: Vasc: CRF < 3 seconds to digits, minimal edema Neuro: light touch sensation intact, will receive block by anesthesia MS: well padded posterior splint applied to the RLE Derm: no strikethrough to surgical dressings noted Radiograghs: pending - Physical Exam General: No apparent distress Vital Signs Temp Pulse Resp BP Pulse Ox 97.3 F L 84 18 156/91 H 98 05/29/18 23:24 05/29/18 23:24 05/29/18 23:24 05/29/18 23:24 05/29/18 23:24 Oxygen Delivery Method Room Air Weight: 229 lb 0.964 oz Body Mass Index (BMI) 38.1 Finger Stick Blood Glucose 136 POC Glucose 05/29/18 10:04 POC Glucose 134 H Assessment/Plan All Active Problems (Last Reviewed 10/10/17 @ 09:50 by Robyn Schneider) Hx of cholecystectomy (Acute) Calculus of gallbladder with chronic cholecystitis without obstruction (Acute) Right upper quadrant pain (Acute) History of back surgery (Acute) History of right hip replacement (Acute) History of left hip replacement (Acute) Hx of thyroidectomy (Acute) Hypercholesteremia (Acute) Nontoxic nodular goiter (Acute) Greater trochanteric bursitis (Acute) Lumbago (Acute) Dysmetabolic syndrome X (Acute) DJD (degenerative joint disease) of pelvis (Acute) Diabetes mellitus (Acute) DDD (degenerative disc disease), lumbar (Acute) Common migraine without intractability (Acute) 58 yo f s/p R flatfoot recon with gastroc recession -Pt evaluated in pacu -Will co-admit to obs for post operative pain management and crutch/walker training NWB RLE -home meds per medicine, post operative prescription written and in chart -did receive a RLE block in pacu by anesthesia, rec oxycodone 5mg 1-2 tab every 4-6 hours for severe pain, tylenol 1000mg q8h -dvt prophylaxis per medicine, will start 325 mg ASA once home, bowel regimen per medicine -NWB RLE, ice behind right knee 20 minutes of each hour will awake, elevate RLE on blankets or towels, may do well with suspending heel -Please call with questions or concerns, she has a post operative appt already scheduled for next week. will see if she is still in house tomorrow evening.
--- NOTE | 2018-05-29 23:50 | RAD_ITS ---
STUDY: X-RAY - RIGHT FOOT CLINICAL: Female, 58 years old. Arthrodeses and exostectomy TECHNIQUE: 3 view(s) of the foot. COMPARISON: None. FINDINGS: Metallic hardware in the tarsal bones denotes subtalar joint fusion. Plate and screws over the navicular and talus denotes a talonavicular fusion. The rest of the tarsal bones are normal except for the presence of a spur from the plantar surface of the os calcis. The metatarsals and phalanges are normal RAD/Foot min 3 Views IMPRESSION: Subtalar fusion. Talonavicular fusion. Electronically Signed: Ti Chaudhari MD at 4:35 EDT Tel , Service support ,
[2018-05-30] VITALS (15 sets, daily range): BP systolic 124–168; BP diastolic 65–97; PULSE 77–101; RESP 16–18; TEMP 36.3–37.4; O2SAT 95–100; BMI 39.2
[2018-05-30 00:06] LABS: Bedside Glucose 213 mg/dL (70-110)
[2018-05-30] MEDS: 0.9% Normal Saline 1,000 ML 100 ML IV (01:00)
[2018-05-30] MEDS: hydrALAZINE 20 MG/ML Vial 10 MG IV (02:22)
[2018-05-30] MEDS: proMETHazine 25 MG/ML Syringe IV (03:31)
[2018-05-30] MEDS: Morphine 2 MG/ML Syringe IV (03:32)
[2018-05-30] MEDS: Levothyroxine 125 MCG Tablet PO (06:23)
[2018-05-30] MEDS: Insulin Lispro 100 UNIT/ML INSULN.PEN SC ×2 (06:28→10:57)
[2018-05-30 06:35] LABS: Bedside Glucose 157 mg/dL (70-110)
[2018-05-30] MEDS: Ondansetron 4 MG/2 ML Vial IV (06:38)
[2018-05-30 06:43] LABS: Absolute Lymphocyte Count 0.69 X10^3/ul (0.83-4.51); Absolute Neutrophil Count 9.6 X10^3/uL (2.0-7.7); Basophil# 0.01 X10^3/uL; Basophil% 0.1 % (0-1); Hemoglobin 13.1 g/dl (12.0-15.0); Lymphocyte # 0.69 X10^3/ul (4.0); Lymphocyte % 6.3 % (19-41); Mean Corpuscular Hgb 28.5 pg (27.0-32.0); Mean Corpuscular Volume 89.3 fL (81-99); Mean Platelet Vol. 10.8 fl (6.2-12.0); Monocyte# 0.65 X10^3/uL; Monocyte% 5.9 % (0-10); Neutrophil # 9.64 X10^3/uL (2.7-7.7); Neutrophil % 87.6 % (47-70); Platelet Count 184 K/mm3 (150-450); RBC Distribution Width CV 13.6 % (11.6-14.6); RBC Distribution Width SD 44.7 fl (35.1-43.9); Red Blood Count 4.59 M/mm3 (4.2-5.4)
[2018-05-30 06:44] LABS: POSITIVE COUNT NO; POSITIVE DIFFERENTIAL NO; POSITIVE MORPHOLOGY NO
[2018-05-30 06:47] LABS: Anion Gap 9 (5-15); BUN 18 mg/dL (7-18); BUN/Creat Ratio 14.5 RATIO (10-20); Calcium,Total 8.3 mg/dL (8.5-10.1); Chloride 107 mmol/L (98-107); Creatinine, Serum 1.24 mg/dL (0.55-1.02); EST Glomerular Filtration Rate 47 mL/min (>60); Est Glom Filt Rate - Afr Amer 57 mL/min (>60); Glucose 170 mg/dL (74-106); Potassium 4.6 mmol/L (3.5-5.1); Sodium Level 141 mmol/L (136-145)
[2018-05-30] MEDS: Celecoxib 200 MG Capsule PO (08:07)
[2018-05-30] MEDS: Calcium (Elemental) 500 MG Tablet PO (08:07)
[2018-05-30] MEDS: Acetaminophen 325 MG Tablet 650 MG PO (08:11)
[2018-05-30] MEDS: Glucerna Shake 120 ML LIQUID PO ×3 (08:11→16:30)
[2018-05-30 11:31] LABS: Bedside Glucose 241 mg/dL (70-110)
--- NOTE | 2018-05-30 12:14 | PN_ITS ---
Subjective: The patient is a 58-year-old female admitted to the hospital after a planned right flatfoot reconstruction by Dr. Brown. The surgery ran late and the patient was admitted for pain control. The hospitalist service was consulted for comanagement. All events of the past 24 hours of been reviewed. She is afebrile. Vital signs are stable. Pulse ox is 96-98% on room air. All lab was personally reviewed. White blood cell count is 11.0 with 87% neutrophils. Hemoglobin and platelets are within normal limits. BMP is remarkable for an elevated creatinine of 1.24 with a BUN of 18. Blood sugar record was reviewed. Still complaining of numbness in the upper thigh area and cannot feel my touch. She was ambulated to the bathroom with crutches but she does not feel stable on the crutches and is fearful of falling. Denies nausea, vomiting, headache, shortness of breath, cough. Pain is adequately controlled. No bowel movement since admission. - Physical Exam General: Alert, Oriented x3, Cooperative, No apparent distress HEENT: PERRLA, EOMI Oral: Moist Mucosa Neck: No JVD Lungs: Clear to auscultation Cardiovascular: Regular rate, Regular Rhythm, Normal S1, Normal S2, No rub noted, No Gallop Abdomen: Bowel Sounds Present, Soft, Non Tender, Non-Distended Extremities: No clubbing, No cyanosis, - - RLE is in a soft cast from the knee down. Intact sensation to her toes but with some numbness in the right thigh. Skin: No rashes Neurological: Cranial nerves II-XII grossly intact, Neuro grossly intact Psych/Mental Status: Normal Affect, Appropriate Vital Signs Temp Pulse Resp BP Pulse Ox 98.3 F 95 18 131/78 H 96 05/30/18 08:14 05/30/18 08:14 05/30/18 08:14 05/30/18 08:14 05/30/18 08:14 Oxygen Flow Rate (L/min) 1 Oxygen Delivery Method Room Air Weight: 235 lb 10.786 oz Body Mass Index (BMI) 39.2 Finger Stick Blood Glucose 213 Intake and Output for Last 24 Hours 05/28/18 05/29/18 05/30/18 23:59 23:59 23:59 Intake Total 2896 / 2896 Output Total 850 / 850 Balance 2045 2045 Laboratory Tests Past 24 Hrs 05/30/18 05/30/18 05:55 05:55 WBC 11.0 RBC 4.59 Hgb 13.1 Hct 41.0 MCV 89.3 MCH 28.5 MCHC 32.0 RDW 13.6 RDW Differential 44.7 H Plt Count 184 MPV 10.8 Immature Gran % (Auto) 0.100 Neut % (Auto) 87.6 H Lymph % (Auto) 6.3 L [place] % (Auto) 5.9 Eos % (Auto) 0.0 Baso % (Auto) 0.1 Absolute Neuts (auto) 9.6 H Absolute Lymphs (auto) 0.69 L Total Counted Not Reportable Sodium 141 Potassium 4.6 Chloride 107 Carbon Dioxide 25.0 Anion Gap 9 BUN 18 Creatinine 1.24 H Estim Creat Clear Calc 44.50 Est GFR (MDRD) Af Amer 57 L Est GFR (MDRD) Non-Af 47 L BUN/Creatinine Ratio 14.5 Glucose 170 H Calcium 8.3 L POC Glucose 05/30/18 05/30/18 05/29/18 10:56 06:25 23:54 POC Glucose 241 H 157 H 213 H Medical Necessity - Tobacco Use Smoking Status: Never smoker Tobacco Use: Non-smoker Assessment/Plan All Active Problems (Last Reviewed 05/29/18 @ 23:48 by Bernarda Brown DPM) Hx of cholecystectomy (Acute) Calculus of gallbladder with chronic cholecystitis without obstruction (Acute) Right upper quadrant pain (Acute) History of back surgery (Acute) History of right hip replacement (Acute) History of left hip replacement (Acute) Hx of thyroidectomy (Acute) Hypercholesteremia (Acute) Nontoxic nodular goiter (Acute) Greater trochanteric bursitis (Acute) Lumbago (Acute) Dysmetabolic syndrome X (Acute) DJD (degenerative joint disease) of pelvis (Acute) Diabetes mellitus (Acute) DDD (degenerative disc disease), lumbar (Acute) Common migraine without intractability (Acute) Impressions 1. Postoperative day #1-status post right foot reconstructive surgery for deformity 2. Diet-controlled diabetes mellitus type 2 3. Hypertension 4. GERD 5. Hypothyroidism 6. Migraine cephalgia 7. Obesity 8. Elevated creatinine-possibly secondary to dehydration. Creatinine in February 2016 was 0.86. keep in the hospital today since the regional block has not worn off yet and she is afraid to try and ambulate. PT/OT consult. Recheck BMP and CBC with diff in the AM. Check a HGBA1C as well Code Visit Inpatient E&M: 30658 Subs Hosp L2
[2018-05-30] MEDS: HYDROcodone Bitartrate/Apap 5/325 Tablet PO ×2 (14:43→20:22)
[2018-05-30 16:46] LABS: Bedside Glucose 129 mg/dL (70-110)
[2018-05-30] MEDS: 0.9% Normal Saline 1,000 ML 250 ML IV (18:15)
--- NOTE | 2018-05-30 18:31 | PCM.PN.ORT ---
Patient Problems: Active and Suspected Problems (Last Reviewed 05/29/18 @ 23:48 by Bernarda Brown DPM) Acquired pes planovalgus of right foot (Acute) Primary osteoarthritis, right ankle and foot (Acute) Other acute postprocedural pain (Acute) Difficulty walking (Acute) Subjective: Pt resting comfortably in bed, daughter present. States pain is well controlled, has some numbness in medial thigh at site of anesthesia block, but can feel toes. Has been icing and elevating. Was able to work with PT today for NWB RLE, does feel more stable with walker > crutches. Started incentive spirometry. Objective: RLE exam: Vasc: CRF < 3 seconds, nontender to calf, minimal edema noted in toes Neuro: light touch diminished but intact in digits MS: well padded posterior splint intact Derm: no strike through noted Radiographs: R foot, calc axial reviewed, good correction noted, with improved alignment, hardware intact; R tib fib films reviewed BMAC harvest site noted, no fx - Physical Exam General: Alert, Oriented x3, Cooperative Vital Signs Temp Pulse Resp BP Pulse Ox 99.4 F H 99 18 141/69 H 96 05/30/18 14:45 05/30/18 14:45 05/30/18 14:45 05/30/18 14:45 05/30/18 14:45 Oxygen Flow Rate (L/min) 1 Oxygen Delivery Method Room Air Weight: 235 lb 10.786 oz Body Mass Index (BMI) 39.2 Finger Stick Blood Glucose 213 Intake and Output for Last 24 Hours 05/28/18 05/29/18 05/30/18 23:59 23:59 23:59 Intake Total 4397 / 4397 Output Total 850 / 850 Balance 3547 / 3547 Laboratory Tests Past 24 Hrs 05/30/18 05/30/18 05:55 05:55 WBC 11.0 RBC 4.59 Hgb 13.1 Hct 41.0 MCV 89.3 MCH 28.5 MCHC 32.0 RDW 13.6 RDW Differential 44.7 H Plt Count 184 MPV 10.8 Immature Gran % (Auto) 0.100 Neut % (Auto) 87.6 H Lymph % (Auto) 6.3 L [place] % (Auto) 5.9 Eos % (Auto) 0.0 Baso % (Auto) 0.1 Absolute Neuts (auto) 9.6 H Absolute Lymphs (auto) 0.69 L Total Counted Not Reportable Sodium 141 Potassium 4.6 Chloride 107 Carbon Dioxide 25.0 Anion Gap 9 BUN 18 Creatinine 1.24 H Estim Creat Clear Calc 44.50 Est GFR (MDRD) Af Amer 57 L Est GFR (MDRD) Non-Af 47 L BUN/Creatinine Ratio 14.5 Glucose 170 H Calcium 8.3 L POC Glucose 05/30/18 05/30/18 05/30/18 16:29 10:56 06:25 POC Glucose 129 H 241 H 157 H 05/29/18 23:54 POC Glucose 213 H Medical Necessity - Tobacco Use Smoking Status: Never smoker Tobacco Use: Non-smoker Assessment/Plan All Active Problems (Last Reviewed 05/29/18 @ 23:48 by Bernarda Brown DPM) Acquired pes planovalgus of right foot (Acute) Primary osteoarthritis, right ankle and foot (Acute) Other acute postprocedural pain (Acute) Difficulty walking (Acute) Hx of cholecystectomy (Acute) Calculus of gallbladder with chronic cholecystitis without obstruction (Acute) Right upper quadrant pain (Acute) History of back surgery (Acute) History of right hip replacement (Acute) History of left hip replacement (Acute) Hx of thyroidectomy (Acute) Hypercholesteremia (Acute) Nontoxic nodular goiter (Acute) Greater trochanteric bursitis (Acute) Lumbago (Acute) Dysmetabolic syndrome X (Acute) DJD (degenerative joint disease) of pelvis (Acute) Diabetes mellitus (Acute) DDD (degenerative disc disease), lumbar (Acute) Common migraine without intractability (Acute) 58 yo F s/p R flatfoot recon with gastroc recession, BMAC harvest proximal tibia, POD #1 -Pt evaluated at bedside -labs, studies and notes reviewed -continue home meds per hospitalist -As pt is not going home tonight 2/2 continued medial thigh numbness and still unsteady NWB RLE, will order lovenox x 1 for tonight, pt to start 325mg ASA QD on dc. If patient does not go home tomorrow please start lovenox while in house. -Strict NWB RLE, Appreciate PT/OT rec and eval -Encourage Incentive Spirometry, 10x/hr. Please have pt take Incentive Spirometry home with her to continue daily. -Will obtain AM labs given slight rise since pre op labs w/ left shift, likely 2/2 GA. Trend temp as she had low grade temp. If temp remains elevated please start doxycycline 100mg BID and send with script x 2 weeks. -Continue post op pain meds, has script in chart for home. -Please call with questions or concerns, has post op appointment already made.
[2018-05-30] MEDS: Enoxaparin 40 MG/0.4 ML Syringe SC (18:45)
[2018-05-30] MEDS: Atorvastatin Calcium 20 MG Tablet PO (21:38)
[2018-05-30] MEDS: cloNIDine HCl 0.1 MG Tablet PO (21:38)
[2018-05-30] MEDS: traZODone 50 MG Tablet PO (21:38)
[2018-05-30 21:50] LABS: Bedside Glucose 144 mg/dL (70-110)
[2018-05-31 02:21] VITALS: PULSE 76
[2018-05-31 02:50] VITALS: BP 137/75; PULSE 79; RESP 16; TEMP 37.1; O2SAT 93
[2018-05-31] MEDS: HYDROcodone Bitartrate/Apap 5/325 Tablet PO ×3 (02:56→16:19)
[2018-05-31 05:35] LABS: Absolute Lymphocyte Count 2.51 X10^3/ul (0.83-4.51); Basophil# 0.01 X10^3/uL; Basophil% 0.1 % (0-1); Eosinophil# 0.04 X10^3/uL; Eosinophils% 0.5 % (0-5); Hematocrit 34.4 % (37-47); Hemoglobin 10.7 g/dl (12.0-15.0); Lymphocyte # 2.51 X10^3/ul (4.0); Lymphocyte % 30.7 % (19-41); Mean Corp Hgb Conc 31.1 g/gl (32-36); Mean Corpuscular Hgb 28.2 pg (27.0-32.0); Mean Corpuscular Volume 90.5 fL (81-99); Mean Platelet Vol. 10.6 fl (6.2-12.0); Monocyte# 0.61 X10^3/uL; Monocyte% 7.5 % (0-10); Neutrophil # 4.99 X10^3/uL (2.7-7.7); Neutrophil % 61.1 % (47-70); Platelet Count 178 K/mm3 (150-450); RBC Distribution Width CV 14.1 % (11.6-14.6); RBC Distribution Width SD 45.3 fl (35.1-43.9); White Blood Count 8.2 K/mm3 (4.4-11.0)
[2018-05-31 05:37] LABS: POSITIVE COUNT NO; POSITIVE DIFFERENTIAL NO; POSITIVE MORPHOLOGY NO
[2018-05-31 05:48] LABS: ALB/GLOB Ratio 0.9 RATIO (0.9-2.4); AST(SGOT) 16 U/L (15-37); Alanine Aminotransfer ALT/SGPT 21 U/L (13-56); Albumin, Serum 2.7 g/dL (3.2-5.0); Alkaline Phosphatase 62 U/L (45-117); Anion Gap 4 (5-15); BUN 17 mg/dL (7-18); Calcium,Total 7.6 mg/dL (8.5-10.1); Chloride 113 mmol/L (98-107); EST Glomerular Filtration Rate 60 mL/min (>60); Est Glom Filt Rate - Afr Amer 73 mL/min (>60); Estimated Creatinine Clearance 55.18 ml/min; Globulin 2.9 g/dL (2.2-4.2); Glucose 127 mg/dL (74-106); Potassium 4.2 mmol/L (3.5-5.1); Protein, Total 5.6 g/dL (6.4-8.2); Sodium Level 144 mmol/L (136-145)
[2018-05-31 05:57] VITALS: PULSE 77
[2018-05-31 06:06] LABS: Hemoglobin A1c 7.3 % (4.2-6.3)
[2018-05-31] MEDS: Levothyroxine 125 MCG Tablet PO (06:47)
[2018-05-31 06:56] LABS: Bedside Glucose 120 mg/dL (70-110)
[2018-05-31 09:08] VITALS: PULSE 94
[2018-05-31 10:00] VITALS: BP 146/75; PULSE 80; RESP 18; TEMP 36.4; O2SAT 98
[2018-05-31] MEDS: Glucerna Shake 120 ML LIQUID PO ×3 (10:19→16:18)
[2018-05-31] MEDS: Celecoxib 200 MG Capsule PO (10:20)
[2018-05-31] MEDS: Calcium (Elemental) 500 MG Tablet PO (10:21)
[2018-05-31 11:50] LABS: Bedside Glucose 105 mg/dL (70-110)
--- NOTE | 2018-05-31 13:16 | CASEMGMT ---
RN CM in to discuss discharge needs, patient states she has walker at home. Denies needs at discharge. Patient has follow-up appt schedule with podiatry. CM available should discharge needs arise.
--- NOTE | 2018-05-31 13:23 | CASEMGMT ---
RN CM followed up with patient regarding discharge needs. Patient denies needs at this time. Plan is to discharge home with family support and follow-up plans in place. CM available should discharge needs arise.
[2018-05-31 15:31] LABS: Bedside Glucose 133 mg/dL (70-110)
[2018-05-31 16:00] VITALS: BP 152/91; PULSE 79; RESP 16; TEMP 37; O2SAT 99
--- NOTE | 2018-05-31 16:30 | DCINST_ITS ---
- Discharge Diagnoses Current Active Problems: Current Active and Chronic Problems (Last Reviewed 05/29/18 @ 23:48 by Bernarda Brown DPM) Difficulty walking (Acute) Other acute postprocedural pain (Acute) Primary osteoarthritis, right ankle and foot (Acute) Acquired pes planovalgus of right foot (Acute) You will use the following diet at home:: Calorie/Carbohydrate Controlled (specify 1200, 1400, etc) Your food should be the consistency of: Regular Your liquids should be the consistency of: Regular/Thin Discharge Activity: May Not Drive, May not drive while taking narcotic pain medications., May Not Shower, Use Walker, Use Crutches Ice area for (Minutes): 20 - apply ice behind right knee 20 minutes of each hour Weight Bearing Status: No weight bearing Keep extremity elevated above heart level: Operative Extremity Call your doctor if your incision/area has: Sudden Increased Bleeding Call your doctor if you observe: Fever of 101 or Higher, Inability to have a bowel movement, Shortness of breath, Dizziness, Chest pain, Prolonged hiccoughing, Increased palpitations (irregular heartbeat), Calf discomfort, U ncontrolled pain Cleanse incision/area with: Keep Dressing Clean & Dry Allergies/Adverse Reactions: Allergies cortisone Adverse Reaction (Verified 05/30/18 00:36) lightheaded, injection site burning diclofenac sodium [From Voltaren] Adverse Reaction (Verified 05/29/18 09:58) Nausea/Vom/Diarrhea nabumetone [From Relafen] Adverse Reaction (Verified 05/29/18 09:58) GI UPSET Medications to take at Discharge Clonidine HCl [Catapres] 0.1 mg PO QHS 07/22/14 traZODone [Desyrel] 50 mg PO QHS 10/14/14 Celecoxib [Celebrex] 200 mg PO DAILY 03/16/16 Atorvastatin Calcium [Lipitor] 20 mg PO QHS 04/15/16 levothyroxine 137 mcg capsule 125 mcg PO QHS 09/18/17 rizatriptan 10 mg tablet 10 mg PO PRN PRN 09/18/17 Calcium Carbonate/Vitamin D3 [Calcium 600 + Vit D Tablet] 1 each PO DAILY 05/30/18 Hydrocodone Bitart/Apap 5-325 [[place] 5/325] 1 - 2 tab PO Q6H PRN PRN 7 Days #50 tab 05/31/18 The following prescriptions were given: Hydrocodone Bitart/Apap 5-325 [[place] 5/325] 1 - 2 tab PO Q6H PRN PRN 7 Days #50 tab PRN Reason: Mod-Severe Pain (-11/29) Primary Care Physician: Rea Escobar MD [Primary Care Provider] - Please follow up with your Primary Care Physician in: as needed Test Results: Test results from this visit will be discussed in further detail at your follow- up appointment, if applicable. Please Follow Up With: Bernarda Brown DPM - please follow up at your previousy scheduled post operative appointment next week. Proposed Discharge Date: 05/31/18
--- NOTE | 2018-05-31 16:30 | PCM.DC.SUM ---
Discharge Date and Diagnosis Date of Admission: 05/29/18 Date of Discharge: 05/31/18 - Primary Discharge Diagnosis Active and Suspected Problems (Last Reviewed 05/29/18 @ 23:48 by Bernarda Brown DPM) S/P R bone marrow aspiration harvest proximal tibia, R Andrade gastroc Recession, R STJ fusion, R TN fusion, R bone exostectomy dorsal CN and 1st TMT Primary osteoarthritis, right ankle and foot (Acute) Acquired pes planovalgus of right foot (Acute) Difficulty walking (Acute) Other acute postprocedural pain (Acute) - Secondary Discharge Diagnosis Diet-controlled diabetes mellitus type 2 Hypertension GERD Hypothyroidism Migraine cephalgia Hospital Course and Treatment Imaging Results: Clinical Impression(s) from Imaging Studies Chest X-Ray 05/23/18 13:13 IMPRESSION: Normal x-ray examination of the chest. Electronically Signed: Suleiman Garcia, at 13:43 EDT , Service support , Foot X-Ray 05/29/18 16:35 IMPRESSION: Subtalar and talonavicular joint fusion A prominent plantar calcaneal spur Electronically Signed: Ti Chaudhari MD at 2:12 EDT Tel , Service support , Tibia/Fibula X-Ray 05/29/18 23:29 Os [place] X-ray 05/29/18 23:32 IMPRESSION: Subtalar joint fusion.. Talonavicular joint fusion Electronically Signed: Ti Chaudhari MD at 4:13 EDT Tel , Service support , Foot X-Ray 05/29/18 23:50 IMPRESSION: Subtalar fusion. Talonavicular fusion. Electronically Signed: Ti Chaudhari MD at 4:35 EDT Tel , Service support , Laboratory Results - last 24 hr 05/30/18 05/30/18 05/31/18 16:29 21:44 05:16 WBC 8.2 RBC 3.80 L Hgb 10.7 L Hct 34.4 L MCV 90.5 MCH 28.2 MCHC 31.1 L RDW 14.1 RDW Differential 45.3 H Plt Count 178 MPV 10.6 Immature Gran % (Auto) 0.100 Neut % (Auto) 61.1 Lymph % (Auto) 30.7 [place] % (Auto) 7.5 Eos % (Auto) 0.5 Baso % (Auto) 0.1 Absolute Neuts (auto) 5.0 Absolute Lymphs (auto) 2.51 Total Counted Not Reportable Sodium Potassium Chloride Carbon Dioxide Anion Gap BUN Creatinine Estim Creat Clear Calc Est GFR (MDRD) Af Amer Est GFR (MDRD) Non-Af BUN/Creatinine Ratio Glucose Hemoglobin A1c Calcium Total Bilirubin AST ALT Alkaline Phosphatase Total Protein Albumin Globulin Albumin/Globulin Ratio POC Glucose 129 H 144 H 05/31/18 05/31/18 05/31/18 05:16 05:16 06:45 WBC RBC Hgb Hct MCV MCH MCHC RDW RDW Differential Plt Count MPV Immature Gran % (Auto) Neut % (Auto) Lymph % (Auto) [place] % (Auto) Eos % (Auto) Baso % (Auto) Absolute Neuts (auto) Absolute Lymphs (auto) Total Counted Sodium 144 Potassium 4.2 Chloride 113 H Carbon Dioxide 27.0 Anion Gap 4 L BUN 17 Creatinine 1.00 Estim Creat Clear Calc 55.18 Est GFR (MDRD) Af Amer 73 Est GFR (MDRD) Non-Af 60 BUN/Creatinine Ratio 17.0 Glucose 127 H Hemoglobin A1c 7.3 H Calcium 7.6 L Total Bilirubin 0.50 AST 16 ALT 21 Alkaline Phosphatase 62 Total Protein 5.6 L Albumin 2.7 L Globulin 2.9 Albumin/Globulin Ratio 0.9 POC Glucose 120 H 05/31/18 05/31/18 11:44 15:26 WBC RBC Hgb Hct MCV MCH MCHC RDW RDW Differential Plt Count MPV Immature Gran % (Auto) Neut % (Auto) Lymph % (Auto) [place] % (Auto) Eos % (Auto) Baso % (Auto) Absolute Neuts (auto) Absolute Lymphs (auto) Total Counted Sodium Potassium Chloride Carbon Dioxide Anion Gap BUN Creatinine Estim Creat Clear Calc Est GFR (MDRD) Af Amer Est GFR (MDRD) Non-Af BUN/Creatinine Ratio Glucose Hemoglobin A1c Calcium Total Bilirubin AST ALT Alkaline Phosphatase Total Protein Albumin Globulin Albumin/Globulin Ratio POC Glucose 105 133 H Hospitalist service for medical management Operations: - - R bone marrow aspiration harvest proximal tibia, R Andrade gastroc Recession, R STJ fusion, R TN fusion, R bone exostectomy dorsal CN and 1st TMT Procedures: None Summary of Care Provided: The patient is a 58-year-old female admitted to the hospital after a planned right flatfoot reconstruction by Dr. Brown. The surgery ran late and the patient was admitted for pain control. The hospitalist service was consulted for comanagement. Past medical history is significant for diet-controlled diabetes mellitus type 2, hypertension, GERD, hypothyroidism, migraine cephalgia, obesity and multiple orthopedic surgeries. On postoperative day #1 the patient did not feel safe walking and was having difficulty using her crutches. Physical therapy and Occupational Therapy were consulted. She was trained with a front wheeled walker and on 05/31/2018 she felt steady with the front wheel walker and her pain was adequately controlled. She was discharged home and will follow up with Dr. Brown as previously scheduled. She will follow-up with Dr. Castro at [facility] as needed. She was given a prescription for Vicodin and instructed to take 1-2 tablets as needed every 6 hours for pain. She was given number 50 tablets. She will resume her other home medications. - Physical Exam General: Alert, Oriented x3, Cooperative, No apparent distress HEENT: PERRLA, EOMI Oral: Moist Mucosa Neck: No JVD Lungs: Clear to auscultation Cardiovascular: Regular rate, Regular Rhythm, Normal S1, Normal S2, No rub noted, No Gallop Abdomen: Bowel Sounds Present, Soft, Non Tender, Non-Distended Extremities: No clubbing, No cyanosis, - - RLE is in a soft cast from the knee down. Intact sensation to her toes but with some numbness in the right thigh. Skin: No rashes Neurological: Cranial nerves II-XII grossly intact, Neuro grossly intact Psych/Mental Status: Normal Affect, Appropriate This note was generated with [id number] software. It may contain incorrect words, spelling, and punctuation that were not noted in checking the note before signing. - Physical Exam Vital Signs Temp Pulse Resp BP Pulse Ox 98.6 F 79 16 152/91 H 99 05/31/18 16:00 05/31/18 16:00 05/31/18 16:00 05/31/18 16:00 05/31/18 16:00 Oxygen Flow Rate (L/min) 1 Oxygen Delivery Method Room Air Weight: 235 lb 10.786 oz Body Mass Index (BMI) 39.2 Finger Stick Blood Glucose 213 Intake and Output for Last 24 Hours 05/29/18 05/30/18 05/31/18 23:59 23:59 23:59 Intake Total 4397 / 4397 1600 / 1600 Output Total 850 / 850 Balance 3547 / 3547 1600 / 1600 Laboratory Tests Past 24 Hrs 05/31/18 05/31/18 05/31/18 05:16 05:16 05:16 WBC 8.2 RBC 3.80 L Hgb 10.7 L Hct 34.4 L MCV 90.5 MCH 28.2 MCHC 31.1 L RDW 14.1 RDW Differential 45.3 H Plt Count 178 MPV 10.6 Immature Gran % (Auto) 0.100 Neut % (Auto) 61.1 Lymph % (Auto) 30.7 [place] % (Auto) 7.5 Eos % (Auto) 0.5 Baso % (Auto) 0.1 Absolute Neuts (auto) 5.0 Absolute Lymphs (auto) 2.51 Total Counted Not Reportable Sodium 144 Potassium 4.2 Chloride 113 H Carbon Dioxide 27.0 Anion Gap 4 L BUN 17 Creatinine 1.00 Estim Creat Clear Calc 55.18 Est GFR (MDRD) Af Amer 73 Est GFR (MDRD) Non-Af 60 BUN/Creatinine Ratio 17.0 Glucose 127 H Hemoglobin A1c 7.3 H Calcium 7.6 L Total Bilirubin 0.50 AST 16 ALT 21 Alkaline Phosphatase 62 Total Protein 5.6 L Albumin 2.7 L Globulin 2.9 Albumin/Globulin Ratio 0.9 POC Glucose 05/31/18 05/31/18 05/31/18 15:26 11:44 06:45 POC Glucose 133 H 105 120 H 05/30/18 05/30/18 21:44 16:29 POC Glucose 144 H 129 H Discharge Activity: May Not Drive, May not drive while taking narcotic pain medications., May Not Shower, Use Walker, Use Crutches Ice area for (Minutes): 20 - apply ice behind right knee 20 minutes of each hour Weight Bearing Status: No weight bearing Keep extremity elevated above heart level: Operative Extremity Call your doctor if your incision/area has: Sudden Increased Bleeding Call your doctor if you observe: Fever of 101 or Higher, Inability to have a bowel movement, Shortness of breath, Dizziness, Chest pain, Prolonged hiccoughing, Increased palpitations (irregular heartbeat), Calf discomfort, Uncontrolled pain Cleanse incision/area with: Keep Dressing Clean & Dry Home Medications: Medications to take at Discharge Clonidine HCl [Catapres] 0.1 mg PO QHS 07/22/14 traZODone [Desyrel] 50 mg PO QHS 10/14/14 Celecoxib [Celebrex] 200 mg PO DAILY 03/16/16 Atorvastatin Calcium [Lipitor] 20 mg PO QHS 04/15/16 levothyroxine 137 mcg capsule 125 mcg PO QHS 09/18/17 rizatriptan 10 mg tablet 10 mg PO PRN PRN 09/18/17 Calcium Carbonate/Vitamin D3 [Calcium 600 + Vit D Tablet] 1 each PO DAILY 05/30/18 Hydrocodone Bitart/Apap 5-325 [[place] 5/325] 1 - 2 tab PO Q6H PRN PRN 7 Days #50 tab 05/31/18 Following Prescrptions Were Given to Patient: Hydrocodone Bitart/Apap 5-325 [[place] 5/325] 1 - 2 tab PO Q6H PRN PRN 7 Days #50 tab PRN Reason: Mod-Severe Pain (-11/29) Primary Care Physician: Rea Escobar MD [Primary Care Provider] - Please follow up with your Primary Care Physician in: as needed Please Follow Up With: Bernarda Brown DPM - please follow up at your previousy scheduled post operative appointment next week. Disposition: Home Minutes spent on discharge:: 30 Patient Condition:: Good Medical Necessity - Tobacco Use Smoking Status: Never smoker Tobacco Use: Non-smoker Meaningful Use Info Meaningful Use Diagnoses (Choose all that apply): None applicable Code Visit Inpatient E&M: 55834 Disch Hosp
--- NOTE | 2018-05-31 16:41 | DS.PCM_ITS ---
Discharge Date and Diagnosis Date of Admission: 05/29/18 Date of Discharge: 05/31/18 - Primary Discharge Diagnosis Active and Suspected Problems (Last Reviewed 05/29/18 @ 23:48 by Bernarda Brown DPM) S/P R bone marrow aspiration harvest proximal tibia, R Andrade gastroc Recession, R STJ fusion, R TN fusion, R bone exostectomy dorsal CN and 1st TMT Primary osteoarthritis, right ankle and foot (Acute) Acquired pes planovalgus of right foot (Acute) Difficulty walking (Acute) Other acute postprocedural pain (Acute) - Secondary Discharge Diagnosis Diet-controlled diabetes mellitus type 2 Hypertension GERD Hypothyroidism Migraine cephalgia Hospital Course and Treatment Imaging Results: Clinical Impression(s) from Imaging Studies Chest X-Ray 05/23/18 13:13 IMPRESSION: Normal x-ray examination of the chest. Electronically Signed: Suleiman Garcia, at 13:43 EDT , Service support , Foot X-Ray 05/29/18 16:35 IMPRESSION: Subtalar and talonavicular joint fusion A prominent plantar calcaneal spur Electronically Signed: Ti Chaudhari MD at 2:12 EDT Tel , Service support , Tibia/Fibula X-Ray 05/29/18 23:29 Os Calcis X-ray 05/29/18 23:32 IMPRESSION: Subtalar joint fusion.. Talonavicular joint fusion Electronically Signed: Ti Chaudhari MD at 4:13 EDT Tel , Service support , Foot X-Ray 05/29/18 23:50 IMPRESSION: Subtalar fusion. Talonavicular fusion. Electronically Signed: Ti Chaudhari MD at 4:35 EDT Tel , Service support , Laboratory Results - last 24 hr 05/30/18 05/30/18 05/31/18 16:29 21:44 05:16 WBC 8.2 RBC 3.80 L Hgb 10.7 L Hct 34.4 L MCV 90.5 MCH 28.2 MCHC 31.1 L RDW 14.1 RDW Differential 45.3 H Plt Count 178 MPV 10.6 Immature Gran % (Auto) 0.100 Neut % (Auto) 61.1 Lymph % (Auto) 30.7 [place] % (Auto) 7.5 Eos % (Auto) 0.5 Baso % (Auto) 0.1 Absolute Neuts (auto) 5.0 Absolute Lymphs (auto) 2.51 Total Counted Not Reportable Sodium Potassium Chloride Carbon Dioxide Anion Gap BUN Creatinine Estim Creat Clear Calc Est GFR (MDRD) Af Amer Est GFR (MDRD) Non-Af BUN/Creatinine Ratio Glucose Hemoglobin A1c Calcium Total Bilirubin AST ALT Alkaline Phosphatase Total Protein Albumin Globulin Albumin/Globulin Ratio POC Glucose 129 H 144 H 05/31/18 05/31/18 05/31/18 05:16 05:16 06:45 WBC RBC Hgb Hct MCV MCH MCHC RDW RDW Differential Plt Count MPV Immature Gran % (Auto) Neut % (Auto) Lymph % (Auto) [place] % (Auto) Eos % (Auto) Baso % (Auto) Absolute Neuts (auto) Absolute Lymphs (auto) Total Counted Sodium 144 Potassium 4.2 Chloride 113 H Carbon Dioxide 27.0 Anion Gap 4 L BUN 17 Creatinine 1.00 Estim Creat Clear Calc 55.18 Est GFR (MDRD) Af Amer 73 Est GFR (MDRD) Non-Af 60 BUN/Creatinine Ratio 17.0 Glucose 127 H Hemoglobin A1c 7.3 H Calcium 7.6 L Total Bilirubin 0.50 AST 16 ALT 21 Alkaline Phosphatase 62 Total Protein 5.6 L Albumin 2.7 L Globulin 2.9 Albumin/Globulin Ratio 0.9 POC Glucose 120 H 05/31/18 05/31/18 11:44 15:26 WBC RBC Hgb Hct MCV MCH MCHC RDW RDW Differential Plt Count MPV Immature Gran % (Auto) Neut % (Auto) Lymph % (Auto) [place] % (Auto) Eos % (Auto) Baso % (Auto) Absolute Neuts (auto) Absolute Lymphs (auto) Total Counted Sodium Potassium Chloride Carbon Dioxide Anion Gap BUN Creatinine Estim Creat Clear Calc Est GFR (MDRD) Af Amer Est GFR (MDRD) Non-Af BUN/Creatinine Ratio Glucose Hemoglobin A1c Calcium Total Bilirubin AST ALT Alkaline Phosphatase Total Protein Albumin Globulin Albumin/Globulin Ratio POC Glucose 105 133 H Hospitalist service for medical management Operations: - - R bone marrow aspiration harvest proximal tibia, R Andrade gastroc Recession, R STJ fusion, R TN fusion, R bone exostectomy dorsal CN and 1st TMT Procedures: None Summary of Care Provided: The patient is a 58-year-old female admitted to the hospital after a planned right flatfoot reconstruction by Dr. Brown. The surgery ran late and the patient was admitted for pain control. The hospitalist service was consulted for comanagement. Past medical history is significant for diet-controlled diabetes mellitus type 2, hypertension, GERD, hypothyroidism, migraine cephalgia, obesity and multiple orthopedic surgeries. On postoperative day #1 the patient did not feel safe walking and was having difficulty using her crutches. Physical therapy and Occupational Therapy were consulted. She was trained with a front wheeled walker and on 05/31/2018 she felt steady with the front wheel walker and her pain was adequately controlled. She was discharged home and will follow up with Dr. Brown as previously scheduled. She will foll ow-up with Dr. Castro at [facility] as needed. She was given a prescription for Vicodin and instructed to take 1-2 tablets as needed every 6 hours for pain. She was given number 50 tablets. She will resume her other home medications. - Physical Exam General: Alert, Oriented x3, Cooperative, No apparent distress HEENT: PERRLA, EOMI Oral: Moist Mucosa Neck: No JVD Lungs: Clear to auscultation Cardiovascular: Regular rate, Regular Rhythm, Normal S1, Normal S2, No rub noted, No Gallop Abdomen: Bowel Sounds Present, Soft, Non Tender, Non-Distended Extremities: No clubbing, No cyanosis, - - RLE is in a soft cast from the knee down. Intact sensation to her toes but with some numbness in the right thigh. Skin: No rashes Neurological: Cranial nerves II-XII grossly intact, Neuro grossly intact Psych/Mental Status: Normal Affect, Appropriate This note was generated with SentiOneation software. It may contain incorrect words, spelling, and punctuation that were not noted in checking the note before signing. - Physical Exam Vital Signs Temp Pulse Resp BP Pulse Ox 98.6 F 79 16 152/91 H 99 05/31/18 16:00 05/31/18 16:00 05/31/18 16:00 05/31/18 16:00 05/31/18 16:00 Oxygen Flow Rate (L/min) 1 Oxygen Delivery Method Room Air Weight: 235 lb 10.786 oz Body Mass Index (BMI) 39.2 Finger Stick Blood Glucose 213 Intake and Output for Last 24 Hours 05/29/18 05/30/18 05/31/18 23:59 23:59 23:59 Intake Total 4397 / 4397 1600 / 1600 Output Total 850 / 850 Balance 3547 / 3547 1600 / 1600 Laboratory Tests Past 24 Hrs 05/31/18 05/31/18 05/31/18 05:16 05:16 05:16 WBC 8.2 RBC 3.80 L Hgb 10.7 L Hct 34.4 L MCV 90.5 MCH 28.2 MCHC 31.1 L RDW 14.1 RDW Differential 45.3 H Plt Count 178 MPV 10.6 Immature Gran % (Auto) 0.100 Neut % (Auto) 61.1 Lymph % (Auto) 30.7 [place] % (Auto) 7.5 Eos % (Auto) 0.5 Baso % (Auto) 0.1 Absolute Neuts (auto) 5.0 Absolute Lymphs (auto) 2.51 Total Counted Not Reportable Sodium 144 Potassium 4.2 Chloride 113 H Carbon Dioxide 27.0 Anion Gap 4 L BUN 17 Creatinine 1.00 Estim Creat Clear Calc 55.18 Est GFR (MDRD) Af Amer 73 Est GFR (MDRD) Non-Af 60 BUN/Creatinine Ratio 17.0 Glucose 127 H Hemoglobin A1c 7.3 H Calcium 7.6 L Total Bilirubin 0.50 AST 16 ALT 21 Alkaline Phosphatase 62 Total Protein 5.6 L Albumin 2.7 L Globulin 2.9 Albumin/Globulin Ratio 0.9 POC Glucose 05/31/18 05/31/18 05/31/18 15:26 11:44 06:45 POC Glucose 133 H 105 120 H 05/30/18 05/30/18 21:44 16:29 POC Glucose 144 H 129 H Discharge Activity: May Not Drive, May not drive while taking narcotic pain medications., May Not Shower, Use Walker, Use Crutches Ice area for (Minutes): 20 - apply ice behind right knee 20 minutes of each hour Weight Bearing Status: No weight bearing Keep extremity elevated above heart level: Operative Extremity Call your doctor if your incision/area has: Sudden Increased Bleeding Call your doctor if you observe: Fever of 101 or Higher, Inability to have a bowel movement, Shortness of breath, Dizziness, Chest pain, Prolonged hiccoughing, Increased palpitations (irregular heartbeat), Calf discomfort, Uncontrolled pain Cleanse incision/area with: Keep Dressing Clean & Dry Home Medications: Medications to take at Discharge Clonidine HCl [Catapres] 0.1 mg PO QHS 07/22/14 traZODone [Desyrel] 50 mg PO QHS 10/14/14 Celecoxib [Celebrex] 200 mg PO DAILY 03/16/16 Atorvastatin Calcium [Lipitor] 20 mg PO QHS 04/15/16 levothyroxine 137 mcg capsule 125 mcg PO QHS 09/18/17 rizatriptan 10 mg tablet 10 mg PO PRN PRN 09/18/17 Calcium Carbonate/Vitamin D3 [Calcium 600 + Vit D Tablet] 1 each PO DAILY 05/30/18 Hydrocodone Bitart/Apap 5-325 [[place] 5/325] 1 - 2 tab PO Q6H PRN PRN 7 Days #50 tab 05/31/18 Following Prescrptions Were Given to Patient: Hydrocodone Bitart/Apap 5-325 [[place] 5/325] 1 - 2 tab PO Q6H PRN PRN 7 Days #50 tab PRN Reason: Mod-Severe Pain (-11/29) Primary Care Physician: Rea Escobar MD [Primary Care Provider] - Please follow up with your Primary Care Physician in: as needed Please Follow Up With: Bernarda Brown DPM - please follow up at your previousy scheduled post operative appointment next week. Disposition: Home Minutes spent on discharge:: 30 Patient Condition:: Good Medical Necessity - Tobacco Use Smoking Status: Never smoker Tobacco Use: Non-smoker Meaningful Use Info Meaningful Use Diagnoses (Choose all that apply): None applicable Code Visit Inpatient E&M: 22325 Disch Hosp
== END 2018-05-31 17:01 | disposition home or self-care (01) ==
LOC: MS3 23:59 → SDC 23:59
PROVIDERS: Family Medicine; Admitting Provider Podiatrist Foot & Ankle Surgery; Family Provider Internal Medicine; PCP Internal Medicine; Referring Provider Podiatrist Foot & Ankle Surgery; Visit Provider Internal Medicine
PROC: (CPT 27687; principal; 2018-05-29 10:45)
DX: M21.071 Valgus deformity, not elsewhere classified, right ankle (principal); M21.41 Flat foot [pes planus] (acquired), right foot; M19.071 Primary osteoarthritis, right ankle and foot; E11.9 Type 2 diabetes mellitus without complications; K21.9 Gastro-esophageal reflux disease without esophagitis; E66.9 Obesity, unspecified; E03.9 Hypothyroidism, unspecified; I10 Essential (primary) hypertension; E88.81 Metabolic syndrome and other insulin resistance; G43.009 Migraine without aura, not intractable, without status migrainosus; Z68.39 Body mass index [BMI] 39.0-39.9, adult; Z71.3 Dietary counseling and surveillance; Z79.899 Other long term (current) drug therapy
CPT/HCPCS: 01474; 27687; 28725; 64445; 36415; 71046; 73590; 73630; 73650; 76000; 80048; 80053; 82962; 83036; 85025; 93005; 96361; 96372; 96374; 96375; 97116; 97162; 97165; 97802; 99218; C1713; J7030; J7120; G0378; G0379; J2405

== ENCOUNTER 2018-06-14 20:36 | Observation (INO) | payer BC, SELFPAY ==
[2018-05-30 00:16] VITALS: BMI 39.2
[2018-06-14 20:37] VITALS: BP 157/91; PULSE 85; RESP 16; TEMP 36.7; O2SAT 97; BMI 39.1
--- NOTE | 2018-06-14 20:56 | EKG12_ITS ---
Test Reason : Blood Pressure : / mmHG Vent. Rate : 083 BPM Atrial Rate : 083 BPM P-R Int : 184 ms QRS Dur : 082 ms QT Int : 404 ms P-R-T Axes : 049 -05 036 degrees QTc Int : 474 ms Normal sinus rhythm Low voltage QRS (Precordial Leads) Confirmed by NATHALIA SARABIA, NADYA ([id number]), market editor JITENDRA LANCASTER ([id number]) on 06/18/2018 11:31:26 AM Referred By: MERVAT Confirmed By:NADYA SLOAN MD
--- NOTE | 2018-06-14 20:57 | CT_ITS ---
STUDY: CT BRAIN WITHOUT CONTRAST REASON FOR EXAM: Female, 58 years old. Dizziness RADIATION DOSAGE (If Supplied By Facility): CTDIvol = ( 44.99 ) mGy, DLP = ( 812.98 ) mGycm TECHNIQUE: Transaxial CT imaging of the brain was performed without administration of intravenous contrast material. Individualized dose optimization techniques were used for this CT. COMPARISON: No relevant priors. FINDINGS: Normal soft tissue structures. Normal calvarium. Normal size ventricles and extra-axial spaces for the patient's age. Normal white matter tracts of the cerebral hemispheres. Normal basal ganglia and thalami. Normal brainstem. Normal cerebellum. There is no intracranial hemorrhage. There are no findings of an acute ischemic infarction. Probable retention cyst in the left maxillary sinus. CT/Brain/Head without Contrast IMPRESSION: Normal unenhanced CT scan of the brain. Electronically Signed: Harvey Tiwari DO at 22:26 EDT Tel [phone], Service support ,
--- NOTE | 2018-06-14 21:10 | RAD_ITS ---
STUDY: X-RAY CHEST REASON FOR EXAM: Female, 58 years old. Chest pain TECHNIQUE: Single frontal view COMPARISON: May 23, 2018 FINDINGS: The lungs are clear and expanded. There is no demonstrated pleural abnormality. Normal size heart. Normal mediastinum and angela. Normal visualized pulmonary arteries. Normal visualized aortic arch and descending thoracic aorta. Normal visualized thoracic spine. Normal visualized ribs, clavicles, and shoulders. There is no demonstrated abnormality of the visualized soft tissue structures of the upper abdomen. RAD/Chest 1 View (Portable) IMPRESSION: Normal x-ray examination of the chest. Electronically Signed: Harvey Tiwari DO at 21:40 EDT Tel [phone], Service support ,
--- NOTE | 2018-06-14 21:11 | ED.DCSUM_ITS ---
- ER Visit Summary Date of Service: 06/14/18 Chief Complaint: [] Spinning sensation history of vertigo History of Present Illness: The patient is a 58 F [] indicates spinning sensation that began around 6 PM today while at home, no headache no change in vision no numbness weakness paresthesias, she has a recent history for right lower extremity surgery where plates and screws were put in her foot that is all stable and healing well She has a history of vertigo long-standing for possibly 20 years she is been seen in the past by ENT she believes other [facility] physician she has had brain scan other testing and she was told her condition is from an intermittent inner ear disorder, she has chronic buzzing in her ears that is unchanged and not know she has no HEENT sinusitis or neurologic complaints or symptoms Physical Examination: [] vSigns are unremarkable General, no distress resting comfortably HEENT is generally unremarkable The neck is supple no adenopathy Cardiovascular, regular rate and rhythm Lungs, clear bilateral Abdomen, soft nontender Extremities, no clubbing cyanosis or edema, she has a brace to her right lower leg and she states that leg is not bothering her in any way so the brace was not removed Neurologic, awake alert answering questions appropriately moving all 4 extremities but no nystagmus cranial nerves are normal her general medical neurologic exam is unremarkable and 8 0 she has complains of a spinning sensation Test Results: [] Emergency Department Course and Treatment: [] She indicates she is had this chronically that is intermittent nothing obviously triggers it she has no history of stroke seizure brain tremor subarachnoid at this time screening labs are obtained IV fluids brain imaging Patient has been medicated she feels slightly better but she still spinning her CBC chemistry panels labs are generally unremarkable see those reports, the head CT shows nothing acute see that report we discussed inpatient versus outpatient management patient and her family mother did not feel she stable enough for discharge home due to the fact that she still spinning and she has the brace/cast to her right lower extremity her gait is generally unstable just because of that brace at this time I asked hospital see her further management admission Treatment Plan: [] Disposition: [] Admit stable Impression: [] Intractable vertigo and spinning, recent right foot surgery currently wearing brace/cast This note was generated with TreeRingation software. It may contain incorrect words, spelling, and punctuation that were not noted in review of the chart prior to signing ED Disposition - Plan for ED Patient: Referrals: Rea Escobar MD [Primary Care Provider] -
[2018-06-14] MEDS: 0.9% Normal Saline 1,000 ML 150 ML IV (21:51)
[2018-06-14] MEDS: Ondansetron 4 MG/2 ML Vial IV (21:51)
[2018-06-14] MEDS: LORazepam 2 MG/ML Syringe 0.5 MG IV (21:51)
[2018-06-14 21:52] VITALS: O2SAT 95
[2018-06-14 21:54] LABS: Absolute Neutrophil Count 7.3 X10^3/uL (2.0-7.7); Basophil# 0.03 X10^3/uL; Basophil% 0.3 % (0-1); Eosinophil# 0.05 X10^3/uL; Eosinophils% 0.5 % (0-5); Hematocrit 41.4 % (37-47); Hemoglobin 13.3 g/dl (12.0-15.0); Lymphocyte % 15.2 % (19-41); Mean Corp Hgb Conc 32.1 g/gl (32-36); Mean Corpuscular Hgb 28.5 pg (27.0-32.0); Mean Corpuscular Volume 88.8 fL (81-99); Mean Platelet Vol. 10.1 fl (6.2-12.0); Monocyte# 0.49 X10^3/uL; Monocyte% 5.3 % (0-10); Neutrophil # 7.25 X10^3/uL (2.7-7.7); Neutrophil % 78.5 % (47-70); Platelet Count 295 K/mm3 (150-450); RBC Distribution Width CV 13.8 % (11.6-14.6); RBC Distribution Width SD 44.8 fl (35.1-43.9); Red Blood Count 4.66 M/mm3 (4.2-5.4); White Blood Count 9.2 K/mm3 (4.4-11.0)
[2018-06-14 21:56] LABS: POSITIVE COUNT NO; POSITIVE DIFFERENTIAL NO; POSITIVE MORPHOLOGY NO
[2018-06-14 22:14] LABS: Anion Gap 6 (5-15); BUN 19 mg/dL (7-18); BUN/Creat Ratio 16.8 RATIO (10-20); Calcium,Total 9.1 mg/dL (8.5-10.1); Chloride 106 mmol/L (98-107); Creatinine, Serum 1.13 mg/dL (0.55-1.02); EST Glomerular Filtration Rate 53 mL/min (>60); Est Glom Filt Rate - Afr Amer 64 mL/min (>60); Estimated Creatinine Clearance 48.83 ml/min; Glucose 157 mg/dL (74-106); Potassium 4.5 mmol/L (3.5-5.1); Sodium Level 141 mmol/L (136-145)
[2018-06-14 22:27] LABS: BNP,B-Type NATRIURETIC PEPTIDE 9.4 pg/mL (0-100)
[2018-06-14 23:14] VITALS: BP 123/73; PULSE 85; RESP 11; O2SAT 95
--- NOTE | 2018-06-14 23:34 | PCM.HP.STD ---
Problem List (1) Vertigo Status: Acute (2) Acquired pes planovalgus of right foot Status: Acute (3) Hx of thyroidectomy Status: Acute Comment: 2008 (4) Hypercholesteremia Status: Acute History of Present Illness Date of Admission: 06/14/18 Chief Complaint: Vertigo The patient is a 58 year old F with a PMH as below who recently had surgery on her right foot 2 weeks ago. She is currently nonweightbearing on her right lower extremity at all for at least 3 months, and she developed vertigo that was very severe today. She has a chronic history of vertigo and has an extensive work-up as an outpatient with the [facility] neurology as well as ENT. She is not on anything at home chronically for vertigo. No signs of ataxia on admission or per the ER evaluation, however she was given Ativan and is currently very sleepy and difficult to obtain a conversation with, therefore most of the discussion was had with the family. They state that today she became very dizzy and had some projectile vomiting and was unable to walk because of it. She denies any chest pain, or shortness of breath. In the ER CT of the brain was normal, and her other labs are unremarkable. She has pain meds at home, though her last Vicodin was last night before bed. She did not take anything new today. Past Medical History Medical History: Medical History (Last Reviewed 05/29/18 @ 23:48 by Bernarda Brown DPM) Hypercholesteremia (Acute) E78.00 Nontoxic nodular goiter (Acute) E04.9 Greater trochanteric bursitis (Acute) M70.60 Lumbago (Acute) M54.5 Dysmetabolic syndrome X (Acute) E88.81 DJD (degenerative joint disease) of pelvis (Acute) M16.10 Diabetes mellitus (Acute) E11.9 DDD (degenerative disc disease), lumbar (Acute) M51.36 Common migraine without intractability (Acute) G43.009 Allergies cortisone Adverse Reaction (Verified 05/30/18 00:36) lightheaded, injection site burning diclofenac sodium [From Voltaren] Adverse Reaction (Verified 05/29/18 09:58) Nausea/Vom/Diarrhea nabumetone [From Relafen] Adverse Reaction (Verified 05/29/18 09:58) GI UPSET Home Medications: Ambulatory Orders Medication Instructions Recorded Clonidine HCl [Catapres] 0.1 mg PO QHS 07/22/14 traZODone [Desyrel] 50 mg PO QHS 10/14/14 Celecoxib [Celebrex] 200 mg PO DAILY 03/16/16 Atorvastatin Calcium [Lipitor] 20 mg PO QHS 04/15/16 levothyroxine 137 mcg capsule 125 mcg PO QHS 09/18/17 rizatriptan 10 mg tablet 10 mg PO PRN PRN 09/18/17 Calcium Carbonate/Vitamin D3 1 each PO DAILY 05/30/18 [Calcium 600 + Vit D Tablet] Hydrocodone/Acetaminophen 1 tab PO Q6H PRN PRN 06/14/18 [Hydrocodone-Acetamin 5-325 mg] Surgical History: Surgical History (Last Reviewed 05/29/18 @ 23:48 by Bernarda Brown DPM) Hx of cholecystectomy (Acute) Z90.49 09/26/17 History of back surgery (Acute) Z98.890 History of right hip replacement (Acute) Z96.641 01/2016 History of left hip replacement (Acute) Z96.642 10/2011 Hx of thyroidectomy (Acute) E89.0 2008 Surgical History: - - Thyroidectomy, bilateral total hip replacement, back surgery, cholecystectomy, recent right foot reconstruction. Psychiatric History: No pertinent psych hx [employer] History: No pertinent [employer] history Smoking Status: Never smoker Alcohol: None Drugs: None - *Family History Maternal Family History: Family History (Last Reviewed 10/10/17 @ 09:50 by Robyn Schneider) Mother Malignant hyperthermia due to anesthesia Diabetes Heart disease Kidney disease CVA (cerebral vascular accident) Father Thyroid disorder Brother Asthma Cancer History Items: - - Mother with history of stroke, diabetes mellitus type 2, heart disease, renal disease. Paternal Family History: Family History (Last Reviewed 10/10/17 @ 09:50 by Robyn Schneider) Mother Malignant hyperthermia due to anesthesia Diabetes Heart disease Kidney disease CVA (cerebral vascular accident) Father Thyroid disorder Brother Asthma Cancer History Items: - - Father with a history of thyroid disorder. Review of Systems Constitutional: Denies: Chills, Fever, Weight Change HEENT: Denies: Head Aches, Sinus Congestion, Sinus Drainage Cardiovascular: Denies: Chest Pain, Palpitations Respiratory: Denies: Cough, Shortness of breath at rest, Sputum production Gastrointestinal: Denies: Abdominal Pain, Nausea, Vomiting Genitourinary: Denies: Dysuria Musculoskeletal: Denies: Joint Pain, Joint Tenderness Skin: Denies: Rash, Wounds Neurological: Reports: - - Dizziness. Denies: Focal weakness, Numbness, Tingling Psychiatric: Denies: Anxiety, Depression Hematologic/ Lymphatic: Denies: Easy Bruising, Easy Bleeding VTE Information - Inpt Only VTE Present on Admission: No Patient Problems: Active and Suspected Problems (Last Reviewed 05/29/18 @ 23:48 by Bernarda Brown DPM) Vertigo (Acute) - Physical Exam General: Alert, Oriented x3, Cooperative, No apparent distress, - - Difficult to arouse because of the Ativan in her system HEENT: Atraumatic, PERRLA, EOMI, Normocephalic Neck: Supple, No JVD, Trachea Midline Lungs: Clear to auscultation, Normal air movement, No rhonchi, No wheeze, No rales Cardiovascular: Regular rate, Regular Rhythm, Normal S1, Normal S2, No murmurs Abdomen: Soft, Non Tender, Non-Distended, No Hepato-splenomegaly Extremities: No edema, Capillary Refill Less than 3 Seconds Skin: No rashes, No breakdown Neurological: - - A thorough neuro exam could not be obtained secondary to the Ativan in her system, review of the ED physicians note prior to the Ativan did not demonstrate any focal neurologic deficit Psych/Mental Status: - - Sleepy Vital Signs Temp Pulse Resp BP Pulse Ox 98.0 F 85 11 L 123/73 H 95 06/14/18 20:37 06/14/18 23:14 06/14/18 23:14 06/14/18 23:14 06/14/18 23:14 Oxygen Delivery Method Room Air Weight: 235 lb Body Mass Index (BMI) 39.1 Finger Stick Blood Glucose 213 Laboratory Tests Past 24 Hrs 06/14/18 06/14/18 06/14/18 21:36 21:36 21:36 WBC 9.2 RBC 4.66 Hgb 13.3 Hct 41.4 MCV 88.8 MCH 28.5 MCHC 32.1 RDW 13.8 RDW Differential 44.8 H Plt Count 295 MPV 10.1 Immature Gran % (Auto) 0.200 Neut % (Auto) 78.5 H Lymph % (Auto) 15.2 L [place] % (Auto) 5.3 Eos % (Auto) 0.5 Baso % (Auto) 0.3 Absolute Neuts (auto) 7.3 Absolute Lymphs (auto) 1.40 Total Counted Not Reportable Sodium 141 Potassium 4.5 Chloride 106 Carbon Dioxide 29.0 Anion Gap 6 BUN 19 H Creatinine 1.13 H Estim Creat Clear Calc 48.83 Est GFR (MDRD) Af Amer 64 Est GFR (MDRD) Non-Af 53 L BUN/Creatinine Ratio 16.8 Glucose 157 H Calcium 9.1 Troponin I < 0.015 B-Natriuretic Peptide 9.4 Assessment/Plan All Active Problems (Last Reviewed 05/29/18 @ 23:48 by Bernarda Brown DPM) Vertigo (Acute) Difficulty walking (Acute) Other acute postprocedural pain (Acute) Primary osteoarthritis, right ankle and foot (Acute) Acquired pes planovalgus of right foot (Acute) Hx of cholecystectomy (Acute) Calculus of gallbladder with chronic cholecystitis without obstruction (Acute) Right upper quadrant pain (Acute) History of back surgery (Acute) History of right hip replacement (Acute) History of left hip replacement (Acute) Hx of thyroidectomy (Acute) Hypercholesteremia (Acute) Nontoxic nodular goiter (Acute) Greater trochanteric bursitis (Acute) Lumbago (Acute) Dysmetabolic syndrome X (Acute) DJD (degenerative joint disease) of pelvis (Acute) Diabetes mellitus (Acute) DDD (degenerative disc disease), lumbar (Acute) Common migraine without intractability (Acute) 1. Acute on chronic vertigo -He has had an extensive outpatient work-up for her vertigo and has been normal -We will start meclizine 12-02/21 p.o. 3 times daily as needed -Unfortunately she is nonweightbearing on her right lower extremity which is why they brought her to the ER because they were afraid that she was going to damage her foot -She does have extensive hardware in her foot at the moment therefore no brain MRI can be obtained -PT/OT in the morning and if her vertigo is improved will plan for DC home 2. Hypothyroidism secondary to thyroidectomy for cancer -Stable -Continue with her home Synthroid 3. HLD/HTN -Stable -Continue with Lipitor and clonidine 4. Status post right foot surgery on 05/29/2018 -Continue with Celebrex and Vicodin -She is nonweightbearing on her right lower extremity DVT: Wero Code Visit OBSV E&M: 77907 Initial observation care L3
[2018-06-14 23:47] VITALS: BMI 38.5; BMI 38.6
[2018-06-14 23:55] VITALS: PULSE 81
[2018-06-15 00:18] VITALS: BP 124/72; PULSE 82; RESP 15; TEMP 36.7; O2SAT 94
[2018-06-15] MEDS: Meclizine 12.5 MG Tablet PO ×2 (00:49→09:17)
[2018-06-15] MEDS: 0.9% Normal Saline 1,000 ML 100 ML IV (02:57)
[2018-06-15 05:53] VITALS: BP 128/75; PULSE 74; RESP 16; TEMP 36.9; O2SAT 96
[2018-06-15] MEDS: Acetaminophen 500 MG Tablet 1000 MG PO ×2 (05:57→14:46)
--- NOTE | 2018-06-15 05:59 | NURSING ---
Pt states dizziness is improving. Occasional light sensitivity but that has improved since admission as well.
[2018-06-15 06:57] LABS: Absolute Lymphocyte Count 2.08 X10^3/ul (0.83-4.51); Absolute Neutrophil Count 6.1 X10^3/uL (2.0-7.7); Basophil# 0.02 X10^3/uL; Basophil% 0.2 % (0-1); Eosinophil# 0.08 X10^3/uL; Eosinophils% 0.9 % (0-5); Hematocrit 38.4 % (37-47); Hemoglobin 12.3 g/dl (12.0-15.0); Lymphocyte # 2.08 X10^3/ul (4.0); Lymphocyte % 23.8 % (19-41); Mean Corpuscular Hgb 28.5 pg (27.0-32.0); Mean Corpuscular Volume 88.9 fL (81-99); Mean Platelet Vol. 10.5 fl (6.2-12.0); Monocyte# 0.47 X10^3/uL; Monocyte% 5.4 % (0-10); Neutrophil # 6.08 X10^3/uL (2.7-7.7); Neutrophil % 69.5 % (47-70); Platelet Count 282 K/mm3 (150-450); RBC Distribution Width CV 13.9 % (11.6-14.6); RBC Distribution Width SD 44.4 fl (35.1-43.9); Red Blood Count 4.32 M/mm3 (4.2-5.4); White Blood Count 8.8 K/mm3 (4.4-11.0)
[2018-06-15 06:58] LABS: POSITIVE COUNT NO; POSITIVE DIFFERENTIAL NO; POSITIVE MORPHOLOGY NO
[2018-06-15 07:13] LABS: Anion Gap 5 (5-15); BUN 16 mg/dL (7-18); BUN/Creat Ratio 15.5 RATIO (10-20); Calcium,Total 8.2 mg/dL (8.5-10.1); Chloride 108 mmol/L (98-107); Creatinine, Serum 1.03 mg/dL (0.55-1.02); EST Glomerular Filtration Rate 58 mL/min (>60); Est Glom Filt Rate - Afr Amer 71 mL/min (>60); Estimated Creatinine Clearance 53.57 ml/min; Glucose 114 mg/dL (74-106); Sodium Level 141 mmol/L (136-145)
--- NOTE | 2018-06-15 09:00 | MRI_ITS ---
STUDY: MRA NECK WITH AND WITHOUT CONTRAST REASON FOR EXAM: Female, 58 years old. Vertigo TECHNIQUE: 3-D mekp-dy-xyajbr (TOF) imaging was performed in an 1.5 T MRI scanner. 20 IV Dotarem was administered for the contrast enhanced images. COMPARISON: None. FINDINGS: RIGHT CAROTID ARTERIES: Normal right common carotid artery (CCA). Normal right common carotid bulb. Normal origin of the right internal carotid (ICA) artery without a hemodynamically significant stenosis. Normal visualized cervical portion of the right internal carotid artery. Normal origin of the right external carotid artery (ECA). LEFT CAROTID ARTERIES: Normal left common carotid artery (CCA). Normal left common carotid bulb. Normal origin of the left internal carotid (ICA) artery without a hemodynamically significant stenosis. Normal visualized cervical portion of the left internal carotid artery. Normal origin of the left external carotid artery (ECA). VERTEBRAL ARTERIES: Normal antegrade flow within the bilateral vertebral artery without a hemodynamically significant stenosis. MRI/MRA Neck WITH and W/O Contrast IMPRESSION: Normal bilateral cervical carotid and vertebral arteries. Electronically Signed: Jose Burns MD at 15:42 EDT Tel , Service support ,
--- NOTE | 2018-06-15 09:00 | MRI_ITS ---
STUDY: MRI BRAIN WITHOUT CONTRAST REASON FOR EXAM: Female, 58 years old. Vertigo with vomiting since yesterday TECHNIQUE: Standardized multiplanar fat and water weighted pulse sequences were obtained. COMPARISON: None. FINDINGS: Normal size of the ventricles and extra-axial spaces for the patient's age. Normal white matter tracts of the supratentorial brain. Normal bilateral basal ganglia. Normal thalami. There is no extra-axial fluid accumulation. Normal flow voids within the major intracranial circulation suggesting patency by spin echo criteria. Normal sella turcica, pituitary gland, infundibular stalk, optic chiasm and hypothalamus. Normal tectal plate and pineal gland. Normal midbrain, jai and medulla. Normal cerebellum. Normal basal cisterns. Normal bilateral temporal bones. Normal bilateral internal auditory canals. No demonstrated orbital abnormality, within the constraints of a routine brain study. Normal visualized paranasal sinuses. Normal calvarium and skull base. Normal visualized soft tissue structures. Normal visualized upper cervical spine. MRI/Brain without Contrast IMPRESSION: Normal unenhanced MRI of the brain. Electronically Signed: Jose Burns MD at 15:38 EDT Tel , Service support ,
--- NOTE | 2018-06-15 09:00 | MRI_ITS ---
STUDY: MRA OF THE HEAD WITHOUT CONTRAST REASON FOR EXAM: Female, 58 years old. Vomiting since yesterday TECHNIQUE: 3-D [id number] (TOF) imaging was performed with MIPs. The study was performed unenhanced. COMPARISON: None. FINDINGS: Normal bilateral petrous carotid arteries. Normal right cavernous carotid artery with a normal supraclinoid bifurcation. Normal left cavernous carotid artery with a normal supraclinoid bifurcation. Normal right A1 segments of the anterior cerebral artery. Normal left A1 segments of the anterior cerebral artery. Normal intact anterior communicating artery (ACOM). Normal bilateral A2 segments of the anterior cerebral arteries. Normal right M1 and M2 segments of the middle cerebral arteries, with a normal M1 bifurcation. Normal left M1 and M2 segments of the middle cerebral arteries, with a normal M1 bifurcation. Normal right posterior communicating artery (PCOM). Normal left posterior communicating artery (PCOM). Normal bilateral vertebral arteries. Normal basilar artery with a normal basilar bifurcation. The visualized bilateral superior cerebellar (SCA) arteries are normal. Normal bilateral P1, P2 and visualized P3 segments of the posterior cerebral arteries. There is no demonstrated aneurysm of the [place]. There is no major vessel occlusion or hemodynamically significant stenosis. There is no demonstrated abnormality of the visualized brain. MRI/MRA Head ONLY without Contrast IMPRESSION: Normal MRA of the head Electronically Signed: Jose Burns MD at 15:40 EDT Tel , Service support ,
[2018-06-15 09:06] VITALS: BP 139/84; PULSE 77; RESP 18; TEMP 36.9; O2SAT 95
[2018-06-15] MEDS: Enoxaparin 40 MG/0.4 ML Syringe SC (09:17)
[2018-06-15 14:43] VITALS: BP 151/76; PULSE 78; RESP 18; TEMP 36.8; O2SAT 98
--- NOTE | 2018-06-15 16:01 | DCINST_ITS ---
- Discharge Diagnoses Current Active Problems: Current Active and Chronic Problems (Last Reviewed 05/29/18 @ 23:48 by Bernarda Brown DPM) Vertigo (Acute) Allergies/Adverse Reactions: Allergies cortisone Adverse Reaction (Verified 05/30/18 00:36) lightheaded, injection site burning diclofenac sodium [From Voltaren] Adverse Reaction (Verified 05/29/18 09:58) Nausea/Vom/Diarrhea nabumetone [From Relafen] Adverse Reaction (Verified 05/29/18 09:58) GI UPSET Medications to take at Discharge Clonidine HCl [Catapres] 0.1 mg PO QHS 07/22/14 traZODone [Desyrel] 50 mg PO QHS 10/14/14 Celecoxib [Celebrex] 200 mg PO DAILY 03/16/16 Atorvastatin Calcium [Lipitor] 20 mg PO QHS 04/15/16 levothyroxine 137 mcg capsule 125 mcg PO QHS 09/18/17 rizatriptan 10 mg tablet 10 mg PO PRN PRN 09/18/17 Calcium Carbonate/Vitamin D3 [Calcium 600 + Vit D Tablet] 1 each PO DAILY 05/30/18 Hydrocodone/Acetaminophen [Hydrocodone-Acetamin 5-325 mg] 1 tab PO Q6H PRN PRN 06/14/18 Meclizine HCl [Antivert] 12.5 mg PO TID PRN PRN #20 tablet 06/15/18 The following prescriptions were given: Meclizine HCl [Antivert] 12.5 mg PO TID PRN PRN #20 tablet PRN Reason: Vertigo Primary Care Physician: Rea Escobar MD [Primary Care Provider] - Please follow up with your Primary Care Physician in: in 1-2 weeks Test Results: Test results from this visit will be discussed in further detail at your follow- up appointment, if applicable. Proposed Discharge Date: 06/15/18
--- NOTE | 2018-06-15 16:05 | DS.PCM_ITS ---
Discharge Date and Diagnosis - Problem List Patient Problems: Active and Suspected Problems (Last Reviewed 05/29/18 @ 23:48 by Bernarda Brown DPM) Vertigo (Acute) Date of Admission: 06/14/18 Date of Discharge: 06/15/18 - Primary Discharge Diagnosis Active and Suspected Problems (Last Reviewed 05/29/18 @ 23:48 by Bernarda Brown DPM) Vertigo (Acute) Hospital Course and Treatment Imaging Results: 06/15/18 09:00 Brain without Contrast [MRI] Urgent MRA Head ONLY without Contrast [MRI] Urgent MRA Neck WITH and W/O Contrast [MRI] Urgent Operations: - - R bone marrow aspiration harvest proximal tibia, R Andrade gastroc Recession, R STJ fusion, R TN fusion, R bone exostectomy dorsal CN and 1st TMT Summary of Care Provided: The patient is a 58 year old F multiple comorbidities who presented with acute vertigo 1. Acute vertigo suspected to be secondary to BPPV. Patient was placed on nursing flow requested for PT OT eval. Patient underwent imaging studies with MRI which was negative for acute CVA discharged home on meclizine 2. History of thyroid cancer status post thyroidectomy patient is on thyroid supplement with Synthroid 3. Hypertension-blood pressure controlled, home medications continued with dose adjustment as needed 4. Dyslipidemia-patient is on statin therapy, continued at home dose 5. Right foot surgery on 05/29/2018 patient is nonweightbearing 6. Degenerative joint disease 7. DVT prophylaxis- on enoxaparin Patient Problems: Active and Suspected Problems (Last Reviewed 05/29/18 @ 23:48 by Bernarda Brown DPM) Vertigo (Acute) - Physical Exam General: Alert HEENT: Atraumatic Neck: Supple Vital Signs Temp Pulse Resp BP Pulse Ox 98.3 F 78 18 151/76 H 98 06/15/18 14:43 06/15/18 14:43 06/15/18 14:43 06/15/18 14:43 06/15/18 14:43 Oxygen Delivery Method Room Air Weight: 105.2 kg Body Mass Index (BMI) 38.5 Finger Stick Blood Glucose 213 Intake and Output for Last 24 Hours 06/13/18 06/14/18 06/15/18 23:59 23:59 23:59 Intake Total 1702 / 1702 Output Total 500 / 500 Balance 1202 / 1202 Laboratory Tests Past 24 Hrs 06/14/18 06/14/18 06/14/18 21:36 21:36 21:36 WBC 9.2 RBC 4.66 Hgb 13.3 Hct 41.4 MCV 88.8 MCH 28.5 MCHC 32.1 RDW 13.8 RDW Differential 44.8 H Plt Count 295 MPV 10.1 Immature Gran % (Auto) 0.200 Neut % (Auto) 78.5 H Lymph % (Auto) 15.2 L [place] % (Auto) 5.3 Eos % (Auto) 0.5 Baso % (Auto) 0.3 Absolute Neuts (auto) 7.3 Absolute Lymphs (auto) 1.40 Total Counted Not Reportable Sodium 141 Potassium 4.5 Chloride 106 Carbon Dioxide 29.0 Anion Gap 6 BUN 19 H Creatinine 1.13 H Estim Creat Clear Calc 48.83 Est GFR (MDRD) Af Amer 64 Est GFR (MDRD) Non-Af 53 L BUN/Creatinine Ratio 16.8 Glucose 157 H Calcium 9.1 Troponin I < 0.015 B-Natriuretic Peptide 9.4 06/15/18 06/15/18 06:32 06:32 WBC 8.8 RBC 4.32 Hgb 12.3 Hct 38.4 MCV 88.9 MCH 28.5 MCHC 32.0 RDW 13.9 RDW Differential 44.4 H Plt Count 282 MPV 10.5 Immature Gran % (Auto) 0.200 Neut % (Auto) 69.5 Lymph % (Auto) 23.8 [place] % (Auto) 5.4 Eos % (Auto) 0.9 Baso % (Auto) 0.2 Absolute Neuts (auto) 6.1 Absolute Lymphs (auto) 2.08 Total Counted Not Reportable Sodium 141 Potassium 4.0 Chloride 108 H Carbon Dioxide 28.0 Anion Gap 5 BUN 16 Creatinine 1.03 H Estim Creat Clear Calc 53.57 Est GFR (MDRD) Af Amer 71 Est GFR (MDRD) Non-Af 58 L BUN/Creatinine Ratio 15.5 Glucose 114 H Calcium 8.2 L Troponin I B-Natriuretic Peptide Discharge Diet: No Restrictions Discharge Activity: Return to Normal Activity, May not drive while taking narcotic pain medications. Home Medications: Medications to take at Discharge Clonidine HCl [Catapres] 0.1 mg PO QHS 07/22/14 traZODone [Desyrel] 50 mg PO QHS 10/14/14 Celecoxib [Celebrex] 200 mg PO DAILY 03/16/16 Atorvastatin Calcium [Lipitor] 20 mg PO QHS 04/15/16 levothyroxine 137 mcg capsule 125 mcg PO QHS 09/18/17 rizatriptan 10 mg tablet 10 mg PO PRN PRN 09/18/17 Calcium Carbonate/Vitamin D3 [Calcium 600 + Vit D Tablet] 1 each PO DAILY 05/30/18 Hydrocodone/Acetaminophen [Hydrocodone-Acetamin 5-325 mg] 1 tab PO Q6H PRN PRN 06/14/18 Meclizine HCl [Antivert] 12.5 mg PO TID PRN PRN #20 tablet 06/15/18 Following Prescrptions Were Given to Patient: Meclizine HCl [Antivert] 12.5 mg PO TID PRN PRN #20 tablet PRN Reason: Vertigo Primary Care Physician: Rea Escobar MD [Primary Care Provider] - Please follow up with your Primary Care Physician in: in 1-2 weeks Disposition: Home Minutes spent on discharge:: 35 Medical Necessity - Tobacco Use Smoking Status: Never smoker Meaningful Use Info Meaningful Use Diagnoses (Choose all that apply): None applicable Code Visit OBSV E&M: 29039 Observation care discharge
[2018-06-15 16:45] VITALS: BP 151/76; PULSE 78; RESP 18; TEMP 36.8; O2SAT 98
== END 2018-06-15 16:44 | disposition home or self-care (01) ==
LOC: ED 20:56 → MS3 23:23
PROVIDERS: Admitting Provider Family Medicine; Emergency Provider Emergency Medicine; Family Provider Internal Medicine; PCP Internal Medicine; Visit Provider Internal Medicine
DX: R42 Dizziness and giddiness (principal); E78.5 Hyperlipidemia, unspecified; I10 Essential (primary) hypertension; E88.81 Metabolic syndrome and other insulin resistance; E11.9 Type 2 diabetes mellitus without complications; M16.10 Unilateral primary osteoarthritis, unspecified hip; M51.36 Other intervertebral disc degeneration, lumbar region; G43.009 Migraine without aura, not intractable, without status migrainosus; Z79.899 Other long term (current) drug therapy; Z85.850 Personal history of malignant neoplasm of thyroid; E89.0 Postprocedural hypothyroidism; Z98.890 Other specified postprocedural states
CPT/HCPCS: 36415; 70450; 70544; 70549; 70551; 71045; 80048; 83880; 84484; 85025; 93005; 96361; 96372; 96374; 99218; 99285; 99406; A9575; J7030; A4216; G0378; J2405

== ENCOUNTER → 2018-11-16 07:50 | Outpatient (CLI) | payer BC, SELFPAY ==
[2018-06-14 23:47] VITALS: BMI 38.5
--- NOTE | 2018-11-16 07:52 | CT_ITS ---
STUDY: CT RIGHT FOOT REASON FOR EXAM: Female, 58 years old. Postoperative pain. Prior fracture. RADIATION DOSAGE (If Supplied By Facility): CTDIvol = ( 15.35 ) mGy, DLP = ( 339.63 ) mGycm TECHNIQUE: Thin section transaxial imaging of the foot was obtained, with sagittal and coronal reconstructed images. Individualized dose optimization techniques were used for this CT. COMPARISON: X-ray May 29, 2018. FINDINGS: There is postoperative change with screws entering from the posterior calcaneus fusing the subtalar joint. There is partial osseous callus. There is plantar calcaneal spur. There is fixation plate and screws at the talonavicular articulation. There is partial callus and regions of cystic change. There is spurring of the tibiotalar articulation. There is arthritic change at the tarsometatarsal articulations. There is soft tissue slightly of the dorsum of the hindfoot. Normal metatarsophalangeal joint of the great toe. Normal tibial and fibular sesamoid bones. Normal interphalangeal joint of the great toe. Normal phalanges of the great toe. Normal second through fifth metatarsophalangeal joints. Normal interphalangeal joints and phalanges of the lesser toes. CT/Extremity Lower without Contra IMPRESSION: Postoperative changes with subtalar and talonavicular fusion. No acute fracture. Arthritic changes. Electronically Signed: Dimitrios Barton MD at 11:55 EDT , Service support ,
== END ==
PROVIDERS: Family Provider Internal Medicine; PCP Internal Medicine; Referring Provider Podiatrist Foot & Ankle Surgery; Visit Provider Family Medicine
DX: G89.28 Other chronic postprocedural pain (principal)
CPT/HCPCS: 73700

== ENCOUNTER 2019-01-10 18:06 | Observation (INO) | payer BC, SELFPAY ==
[2018-06-14 23:47] VITALS: BMI 38.5
[2018-12-19 14:22] VITALS: BP 163/88; PULSE 86; RESP 16; TEMP 36.8; O2SAT 98; BMI 41.1
[2019-01-10] VITALS (9 sets, daily range): BP systolic 110–177; BP diastolic 68–100; PULSE 60–87; RESP 16–18; TEMP 35.8–37; O2SAT 91–100; BMI 41.1
[2019-01-10] MEDS: Lactated Ringers 1,000 ML 100 ML IV ×2 (11:30→21:42)
[2019-01-10 11:41] LABS: Bedside Glucose 129 mg/dL (70-110)
[2019-01-10] MEDS: Cefazolin 2 GM in 0.9% Normal Saline 100 ML IV ×2 (12:29→21:16)
--- NOTE | 2019-01-10 12:55 | RAD_ITS ---
STUDY: X-RAY - RIGHT ANKLE REASON FOR EXAM: Female, 59 years old. Hardware removal TECHNIQUE: 29 intraoperative view(s) of the ankle. COMPARISON: None. FINDINGS: Multiple intraoperative views demonstrate removal of 2 calcaneal screws and 3 raul of the ankle region. A small screw fragment remains in the anterior talus. RAD/Ankle min 3 Views IMPRESSION: Interval removal of calcaneal screws and ankle raul. A screw fragment remains in the anterior talus. Electronically Signed: Eliseo Dorantes MD at 20:00 EST , Service support ,
--- NOTE | 2019-01-10 18:22 | RAD_ITS ---
STUDY: X-RAY - RIGHT FOOT CLINICAL: Female, 59 years old. Postop right foot, revisional surgery TECHNIQUE: 3 view(s) of the foot. COMPARISON: Prior study of 05/29/2018 FINDINGS: There are 2 screws fusing the talocalcaneal articulation. There is a large plantar aspect calcaneal spur. There are 3 raul involving the tarsals. There are degenerative changes of the proximal tarsal articulations. There is a screw fragment associated with prior fusion plate in the anterior talus. There are mild degenerative changes of the tarsometatarsal articulations. Normal metatarsophalangeal joint of the great toe. Normal tibial and fibular sesamoid bones. Normal interphalangeal joint of the great toe. Normal phalanges of the great toe. Normal second through fifth metatarsophalangeal joints. Normal interphalangeal joints and phalanges of the lesser toes. The soft tissue structures are unremarkable. RAD/Foot min 3 Views IMPRESSION: Postoperative and degenerative changes as detailed above. Electronically Signed: Eliseo Dorantes MD at 20:38 EST , Service support ,
--- NOTE | 2019-01-10 18:27 | OP.PCM_ITS ---
Problem List (1) Primary osteoarthritis, right ankle and foot Status: Chronic (2) Acquired pes planovalgus of right foot Status: Chronic Report of Operation Date of Procedure: 01/10/19 Pre-Operative Diagnosis: 1. Nonunion of surgery right foot. 2. acquired deformity right foot. 3. pes planovalgus right foot. 4. pain in right foot. Post-Operative Diagnosis: Same as preoperative Surgery/Procedure Performed:: 1 removal of hardware right foot. #2 resection of nonunion subtalar joint right foot. #3 resection of nonunion talonavicular joint right foot. #4 revisional subtalar joint fusion right foot. #5 Hussein calcaneal osteotomy with bone graft. #6 revisional talonavicular joint fusion right foot. #7 navicular cuneiform joint fusion right foot Description of Surgical Findings:: Consistent with diagnosis. Resection of all nonunion tissue achieved. Adequate reduction of deformity achieved and held with internal fixation. program evaluator: Jesús Kahn Type of Anesthesia:: General/Regional - General with a popliteal saphenous block to the right lower extremity. Anesthesiologist: Scot Wakefield Special Medications: 2 g Ancef administered 2 x 4 hours apart. Specimen's removed: None Drains: None Estimated Blood Loss (mL): 50mL Description of Procedure: Pathology: None Anesthesia: General with a popliteal saphenous block to the right lower extremity Hemostasis: Pneumatic thigh tourniquet placed to level of the right thigh at 300 mmHg for 140 minutes. The tourniquet was then let down for a period of 20 minutes and then reinflated for an additional 100 minutes. Materials: 1.) Declan 6.5 x 90 mm partially-threaded screw 2.) [place] bio4 10 cc. 3.) [place] cotton wedge 6 mmx2. 4.) [place] Hussein wedge 8 mmx2. 5.) [place] Hussein wedge size 10. 6.) [place] EZ staple size 20 x 2 7.) Declan EZ staple size 25 8.) 2-0 Vicryl. 9.) 3-0 Monocryl. 10.) 3-0 nylon. 11.) 2-0 nylon Injectables: None Complications: Hardware was broken in the talonavicular joint and one broken screw had to be left in their due to difficulty to retrieve it. Furthermore significant metallosis was noted in the surrounding tissues of the talonavicular site, which urged me to avoid using plates for fixation Condition: stable Indications: The patient is a 59-year-old female with multiple medical problems who has a chief complaint of painful ambulation of her right foot. Patient follow-up with a previous elastic yarn twister helper who performed a talonavicular and subtalar joint effusions. Unfortunately patient went on to nonunion and the architecture of the foot resulted in significant pain. Patient then presented to me for further treatment options. After obtaining a CT scan showing nonunions of the subtalar joint and the talonavicular joint and along with radiographic evaluation showing the deformity of the right foot, I discussed with the patient all of her options at this time including revisional surgery and conservative therapy. Patient states that she is in significant pain and had a reduction in quality of life due to this. After multiple discussions were had, it was determined this time the surgical intervention to remove the hardware and to realign the architecture of the right foot would greatly benefit the patient help her return to activities of daily living which she enjoys. I agree with the patient's decision due to the significant deformity that was still in the right foot. Operative report: Before the patient was brought to the operating room, all the risks, benefits, possible outcomes, possible complications of the procedure were discussed with the patient. All the patient questions were answered to her satisfaction and all of her concerns were addressed. No guarantees were made as to the outcome of the procedure. Patient understood all aspects of the procedure and consent was then signed by the patient. Before the patient was brought to the operating room, anesthesia administered a popliteal/saphenous block to the right lower extremity. The patient was then brought to the operating room and placed on the operating table in supine position. After timeout, once general anesthesia was obtained and the airway was controlled by anesthesia, a well-padded pneumatic thigh tourniquet was placed to level of the right thigh. Next an ipsilateral bump was placed under the right hip. At this time a Foreman catheter was placed and the patient. The right foot, ankle, leg were then scrubbed, prepped, draped in the usual sterile manner. Attention was then directed to the plantar posterior aspect of the right heel. At this time live radiographic evaluation was used to determine where the screws for the subtalar joint fusion were noted. At this time 2 K wires were placed from plantar inferior to dorsal superior through the already cannulated screws. Once these K wires were fully inserted to the screws and confirmed upon radiographic evaluation, a #15 blade was used to perform an incision at the level where the K wires under the skin. Blunt dissection was continued down deep to the level of the calcaneus. At this time the screws were then removed in their entirety. Radiographic evaluation was then confirmed and the screws were noted to be fully removed. The K wire was then removed in their entirety. 10 presented to the dorsal medial aspect of the right foot in the area of the pr evious surgical incision. At this time a #15 blade was used to perform a dorsal medial incision starting the dorsal medial aspect of the neck of the talus extending distally to the dorsal medial aspect of the medial cuneiform. This incision was deepened utilizing sharp and blunt dissection. Care was taken to retract all vital neural and vascular structures. All bleeders were cauterized and ligated as necessary. At this time care was taken to make sure that the tibialis anterior tendon was retracted and minimal stress was placed on this. At this time a linear incision was made in line with the original skin incision. The periosteal and capsular structures were reflected medially and laterally, thus exposing the hardware at the operative site. At this time significant metallosis was noted throughout the soft tissues. Furthermore metal fragments were noted in the soft tissues. This caused concern about her reaction to possible plates. Furthermore multiple screws were broken. The interfragmentary screw that was placed between the talonavicular was fully broken and the distal portion was difficult to obtain. It was then determined at that time that this distal portion would be left for fear that more damage will be done trying to retrieve this. The plate and the other screws were then removed in their entirety and passed from the operative site. At this time the surgical site was then irrigated with copious muscle normal sterile saline. Care was taken make sure to remove as much of this metallosis as possible. At this time the right lower extremity was then elevated and exsanguinated via Esmarch inflation pneumatic thigh tourniquet was performed to 300 mmHg. Attention was then directed to the lateral aspect of the right subtalar joint. At this time radiographic evaluation was used to determine the superior, inferior, posterior, anterior borders of the calcaneus. These were then marked on the patient. At this time a curvilinear incision was made starting in the posterior inferior aspect of the lateral malleolus extending distally in a lazy S fashion to the calcaneal cuboid joint. This incision was deepened utilizing sharp and blunt dissection. Care was taken to retract all vital neural and vascular structures. All bleeders were cauterized and ligated as necessary. At this time the peroneal tendons were then identified. The peroneal tendon sheath was then transected and along its longitudinal axis. The tendons were then retracted inferiorly, exposing the subtalar joint. At this time the subtalar joint was then investigated and significant amount of fibrous tissue along with nonunion tissue in the area was identified. At this time an osteotome along with a curette was then used to remove the nonunion tissue. Care was to make sure that adequate removal of the tissue was performed. The subtalar joint site was then irrigated with copious amounts of normal sterile saline. Once this tissue was then removed radiographic evaluation was then performed. The subtalar joint was noted to be free at this time. Next the joint spaces were then prepped with subchondral drilling and fish scaling. Care was taken make sure that the subchondral bone was broken and penetrated. With adequate preparation of the joint was performed, the Declan bone graft was drilled with multiple K wires to allow osteo-conduction through the graft. This bone graft was then placed into the surgical site with a copious amount of bio4. At this time radiographic evaluation was then performed. The calcaneus was noted to be plantarflexed posteriorly and the anterior aspect of the talus was noted to be dorsiflexed when compared to the preoperative x-rays. Attention was then directed back to the posterior inferior aspect of the right heel where the hardware removal site was then noted. At this time live radiographic evaluation was used to insert 2 K wires from the plantar posterior aspect of the right calcaneus extending dorsally and superiorly into the neck of the talus. Radiographic evaluation was then performed with every step to make sure that the wires were well contained within the calcaneus and the navicular. Care was taken to make sure that they did not extend medially or laterally and into the soft tissue structures. Once radiographic evaluation was then performed and K wire positioning was confirmed, [place] 6.5 x 90 mm partially-threaded screws were placed over the K wire in standard AO fixation. Of note during insertion of the speed screw was adequate compression of the subtalar joint. Furthermore no shifting any of the fragments occurred during insertion of the screws. Once the screws were fully inserted the K wires were then removed. Radiographic evaluation was then performed and the screws were noted to hold the bone graft in the subtalar joint and the corrected reduced position. Attention was then directed to the lateral aspect of the right calcaneus. At this time the calcaneocuboid joint was then identified. Next 1.5 cm was measured proximally to the calcaneocuboid joint and marked on the calcaneus. At this time a sagittal bone saw was used to perform an osteotomy from lateral to medial at this 1.5 cm marking. Care was taken make sure that this osteotomy was parallel to the calcaneocuboid joint. This was confirmed upon radiographic evaluation. Once was then confirmed, K wires and the histamine retractor were placed from lateral to medial on the opposite sides of the osteotomy. The Hinterman retractor was then used to open the osteotomy site. Of note was the abduction of the forefoot against the rear foot during this procedure. Radiograph evaluation was then performed and the significant talar uncovering that was noted from preoperative assessment was reduced. At this time the Declan Hussein bone graft was placed into this osteotomy site. This was then held utilizing the Declan staple that was placed in standard fashion. Radiographic evaluation was then performed and the bone graft was noted to be in adequate position. The surgical site was then irrigated copious muscle normal sterile saline. The pneumatic thigh tourniquet was then released for a period of 20 minutes. A prompt hyperemic response was noted to the entirety of the right lower extremity. The periosteal capsular structures were reapproximated and coapted utilizing 2-0 Vicryl. The tendon sheath of the peroneal tendons was reapproximated coapted utilizing 2-0 Vicryl. The subcutaneous tissue was reapproximated coapted with 3-0 Monocryl. The skin was reapproximated coapted utilizing 3-0 nylon in a horizontal mattress fashion. At this time the right lower extremity is elevated and exsanguinated via Esmarch after the 20 minute period was finished and the pneumatic thigh tourniquet was inflated to 300 mmHg. Attention was then directed to the surgical site back on the dorsal medial aspect of right foot. At this time a #15 blade was used to continue performing dissection of the talonavicular and the navicular cuneiform joints. Of note was that the talar head and the navicular was significantly osteopenic and the bone was soft when compared to the other bones. These bones posed a significant problem to hold internal fixation. A Hinterman retractor was then used to open up the navicular cuneiform joint. At this time joint prep was then performed of the navicular cuneiform joint with removal of the cartilage and subchondral drilling and for scaling. The surgical site was irrigated copious amounts normal sterile saline. At this time the [place] bone graft was placed into the surgical site to aid in the plantar flexion of the forefoot. Bio4 was then wrapped around this bone graft to assist in fusion. Radiographic evaluation was then performed and the forefoot was noted to be plantar flexed when compared to preoperative assessment but talonavicular sagging was still noted. At this time the attention was then directed to the talonavicular joint. Resection of the nonunion was performed. Care was taken make sure that all the nonunion tissue was removed. Again it was noted that the navicular and the talar head were soft and that the bone would not be great to hold internal fixation. The surgical site was irrigated copious muscle normal sterile saline. At this time the Declan bone graft was then placed into the talonavicular site along with bio 4. The graft evaluation was then performed and the forefoot was noted to be significantly plantarflexed against the rear foot when compared to preoperative assessment. Furthermore, the talar navicular sagging was reduced. At this time I decided to not use a plate due to the metallosis and the fear of not holding the internal fixation. Was then determined this time that the Declan raul were used to aid the compression and hold the graft in place. The Declan size 25 staple was placed over the navicular cuneiform and the Declan size 20 staple was placed over the navicular joint. During insertion of the raul, adequate compression of the joints was noted. Radiograph evaluation was then performed and all the hardware that was contained within the talonavicular naviculocuneiform joint was used to compress the joint. Simulated weightbearing was then performed and the forefoot was noted to be significantly plantarflexed when compared to the preoperative x-rays. Furthermore the subtalar joint was noted to be in adequate position with the calcaneus and the talus in better alignment. The surgical site the dorsal medial aspect of the right foot was irrigated copious muscle normal sterile saline. The periosteal capsular structures were reapproximated coapted utilizing 2-0 Vicryl. The subcutaneous tissue was reapproximated coapted utilizing 3-0 Monocryl. The skin was reapproximated coapted utilizing 3-0 nylon horizontal mattress fashion. Attention was directed to the plantar aspect of the right calcaneus where the surgical site was irrigated copious amounts normal sterile saline. The subcutaneous tissue was reapproximated coapted utilizing 2-0 Vicryl. The skin was reapproximated coapted utilizing 2-0 nylon in a simple interrupted fashion. At this time the pneumatic thigh tourniquet was then released and a prompt hyperemic response was noted to the entirety of the right lower extremity. The Foreman catheter was then removed without incident. Each surgical site was then dressed with Betadine soaked gauze, and a dry sterile dressings using a 4 x 4 gauze wrapped with Kerlix. At this time cast padding was wrapped in the metatarsal heads extending proximally to level just distal to the tibial tuberosity. A posterior splint was fashioned to the right lower extremity and was adhered to the right lower extremity utilizing Rajiv bandages. Care was taken to make sure that the foot and ankle held in a neutral position as the posterior splint dried. The patient tolerated the anesthesia of the procedure well and was transported to the PACU with vital signs stable neurovascular status intact right lower extremity. After period of postoperative monitoring patient will be admitted for observation for further postoperative care and pain management. food trades assistants, physician medical lab assistant, was utilized throughout the entire procedure. He helped with patient positioning, holding of limb, holding retractors. He helped with exposure throughout. He helped with stabilization of the joints, internal fixation, wound closure, bandage application, and cast application. Without the surgical services assistant, surgical time would have been increased. Surgical outcome could have been less optimal. - Admit VTE Documentation VTE Present on Admission: No
[2019-01-10 18:31] LABS: Bedside Glucose 193 mg/dL (70-110)
--- NOTE | 2019-01-10 18:38 | RAD_ITS ---
STUDY: X-RAY - RIGHT ANKLE REASON FOR EXAM: Female, 59 years old. Postop TECHNIQUE: 3 view(s) of the ankle. COMPARISON: None. FINDINGS: Normal visualized distal tibia and fibula. Normal medial and lateral malleoli. Normal tibiotalar articulation and ankle mortise. There is fusion of the tibiotalar articulation with 2 threaded screws. Orthopedic raul are noted involving the tarsometatarsal region. There is a plantar aspect calcaneal spur. There are degenerative changes of varying degrees of the tarsal articulations. The soft tissue structures are unremarkable. RAD/Ankle min 3 Views IMPRESSION: Fusion of the talocalcaneal articulation. Degenerative changes. Orthopedic raul as noted above. An additional small screw fragment is seen in the anterior talus. Electronically Signed: Eliseo Dorantes MD at 20:06 EST , Service support ,
[2019-01-10] MEDS: HYDROmorphone 1 MG/ML Syringe IV (19:57)
[2019-01-10] MEDS: Atorvastatin Calcium 10 MG Tablet PO (21:30)
[2019-01-10] MEDS: traZODone 50 MG Tablet PO (21:31)
[2019-01-10] MEDS: Rizatriptan Benzoate 10 MG Tablet PO (21:32)
[2019-01-10] MEDS: cloNIDine HCl 0.2 MG Tablet PO (23:54)
[2019-01-10] MEDS: HYDROcodone Bitartrate/Apap 5/325 Tablet PO (23:54)
[2019-01-11 01:09] VITALS: BP 150/92
[2019-01-11] MEDS: Cefazolin 2 GM in 0.9% Normal Saline 100 ML IV ×2 (05:42→13:02)
[2019-01-11] MEDS: Levothyroxine 125 MCG Tablet PO (05:42)
[2019-01-11 05:45] VITALS: BP 130/84; PULSE 86; RESP 18; TEMP 37; O2SAT 96
[2019-01-11 07:21] VITALS: O2SAT 96
[2019-01-11] MEDS: metFORMIN (XR) 500 MG Tablet PO (08:17)
[2019-01-11] MEDS: Celecoxib 200 MG Capsule PO (08:30)
[2019-01-11] MEDS: Calcium Carb/Vitamin D 1 TABLET Tablet PO (08:30)
[2019-01-11 09:45] VITALS: BP 139/82; PULSE 76; RESP 18; TEMP 36.9; O2SAT 96
[2019-01-11] MEDS: cloNIDine HCl 0.2 MG Tablet PO (10:28)
[2019-01-11] MEDS: Ensure Clear 120 ML Liquid 414 ML PO (10:28)
--- NOTE | 2019-01-11 12:06 | DCINST_ITS ---
Discharge Diet: No Restrictions Discharge Activity: May Not Drive, May Not Shower, Use Walker, Use Crutches Ice area for (Minutes): 20 - I spine right knee 20 minutes on 20 minutes off every hour while awake until follow-up appointment. Weight Bearing Status: No weight bearing - To right leg with assistive devices. Lifting Restrictions: Do not lift anything more than 5 pounds. Keep extremity elevated above heart level: Operative Extremity - Above the level of heart as much as possible until follow-up appointment, Right Leg Additional Activity Instructions:: Keep dressing clean, dry, intact. Do not get dressing wet. Do not change or remove dressing. Protective dressing when sponge bathing with plastic bag and tape or cast protector. Elevate right leg above level of heart as much as possible until follow-up appointment. Ice behind right knee 20 minutes on 20 minutes off every hour while awake until follow-up appointment. Take medications as prescribed. No walking/standing on right foot. Call your doctor if your incision/area has: Continuous Slow Oozing, Sudden Increased Bleeding, Increased Pain/ Swelling Call your doctor if you observe: Fever of 101 or Higher, Coldness, Increased Pain, Shortness of breath, Dizziness, Fainting spells, Chest pain, Increased palpitations (irregular heartbeat), Calf discomfort, Uncontrolled pain Cleanse incision/area with: Keep Dressing Clean & Dry Allergies/Adverse Reactions: Allergies cortisone Adverse Reaction (Verified 01/10/19 11:06) lightheaded, injection site burning diclofenac sodium [From Voltaren] Adverse Reaction (Verified 01/10/19 11:06) Nausea/Vom/Diarrhea nabumetone [From Relafen] Adverse Reaction (Verified 01/10/19 11:06) GI UPSET Medications to take at Discharge traZODone [Desyrel] 50 mg PO QHS 10/14/14 Celecoxib [Celebrex] 200 mg PO DAILY 03/16/16 Atorvastatin Calcium [Lipitor] 10 mg PO QHS 04/15/16 levothyroxine 137 mcg capsule 125 mcg PO QHS 09/18/17 rizatriptan 10 mg tablet 10 mg PO PRN PRN 09/18/17 Hydrocodone/Acetaminophen [Hydrocodone-Acetamin 5-325 mg] 1 tab PO Q6H PRN PRN 06/14/18 Meclizine HCl [Antivert] 12.5 mg PO TID PRN PRN #20 tablet 06/15/18 Acetaminophen [Tylenol Extra Strength] 500 - 1,000 mg PO Q6H PRN PRN 12/19/18 Cholecalciferol (Vitamin D3) [Vitamin D3] 5,000 unit PO DAILY 12/19/18 Clonidine HCl [Catapres] 0.2 mg PO DAILY 12/19/18 Lactose-Reduced Food [Protein Nutritional Shake] 414 ml PO DAILY 12/19/18 Metformin HCl [Glucophage Xr] 500 mg PO DAILY 12/19/18 Primary Care Physician: Rea Escobar MD [Primary Care Provider] - Test Results: Test results from this visit will be discussed in further detail at your follow- up appointment, if applicable. Please Follow Up With: Christopher Andrade DPM - On 01/15 at 11:00am Proposed Discharge Date: 01/11/19
--- NOTE | 2019-01-11 12:12 | DS.PCM_ITS ---
Discharge Date and Diagnosis Date of Admission: 01/10/19 Date of Discharge: 01/11/19 - Primary Discharge Diagnosis #1 acute postprocedural pain right foot and ankle. 2. Acquired deformity right foot and ankle. #3 primary osteoarthritis right foot and ankle. - Secondary Discharge Diagnosis Chronic Problems (Last Reviewed 01/10/19 @ 12:06 by Christopher Andrade DPM) Primary osteoarthritis, right ankle and foot (Chronic) Acquired pes planovalgus of right foot (Chronic) Hospital Course and Treatment Imaging Results: Radiographic images of the right foot and ankle taken on January 10 postoperatively reveal intact hardware to the right hindfoot and midfoot. Realignment of the joints of the right foot noted. Operations: - - Right removal of hardware, right resection of nonunion and mclean btalar joint and talonavicular joint, right revisional subtalar joint fusion, right revisional talonavicular fusion, right Hussein calcaneal osteotomy, right naviculocuneiform fusion Summary of Care Provided: The patient is a 59 year old F [] Subjective: Patient seen today postop day 1 of a right revisional subtalar joint and talonavicular joint fusions, removal of hardware, navicular cuneiform fusion, Hussein calcaneal osteotomy. Patient states that she is feeling well and denies acute pain at this time. Patient states that she had a headache overnight and she believes it was from her blood pressure which is now under control. Patient denies any other acute complaints at this time. Currently patient denies fever, chills, nausea, vomiting, shortness of breath, chest pain. Patient denies right calf pain. Objective: Right lower extremity exam: Dressing is clean, dry, intact to the right lower extremity. Evidence of strikethrough noted on the medial aspect of the dressing that is dried in nature. This was marked and is not increased. Neurovascular status was assessed and deemed intact to the digit of the right foot. Patient able to move the digits of the right foot in dorsiflexion and plantar flexion manner. - Physical Exam Vitals/I&O's: Vital Signs Temp Pulse Resp BP Pulse Ox 98.4 F 76 18 139/82 H 96 01/11/19 09:45 01/11/19 09:45 01/11/19 09:45 01/11/19 09:45 01/11/19 09:45 Oxygen Flow Rate (L/min) 2 Oxygen Delivery Method Room Air Weight: 108.7 kg Body Mass Index (BMI) 41.1 Finger Stick Blood Glucose 193 Intake and Output for Last 24 Hours 01/09/19 01/10/19 01/11/19 23:59 23:59 23:59 Intake Total 2220 / 2220 1110 / 1110 Output Total 600 / 600 1450 / 1450 Balance 1620 / 1620 -340 / -340 General: Alert, Oriented x3, Cooperative, Well developed, Well nourished HEENT: Atraumatic, PERRLA, EOMI, Normocephalic Neck: Supple, No JVD Lungs: Clear to auscultation, Normal air movement, No rhonchi, No wheeze, No rales Cardiovascular: Regular rate, Regular Rhythm, Normal S1, Normal S2 Abdomen: Bowel Sounds Present, Soft, Non Tender, Non-Distended Skin: No rashes, No breakdown Psych/Mental Status: Normal Affect, Alert and oriented to time, place, person, mood and affect Laboratory Results 01/10/19 18:29: POC Glucose 193 H Current Medications Hydrocodone Bitart/Acetaminophen ([place] 5mg-325mg) 1 - 2 tablet PO Q6H PRN PRN PRN Reason: Pain Score 1-5/10 Last Admin: 01/10/19 23:54 Dose: 2 tablet Documented by: Atorvastatin Calcium (Lipitor) 10 mg PO QHS [facility] Last Admin: 01/10/19 21:30 Dose: 10 mg Documented by: Calcium Carbonate (Tums) 500 mg PO DAILY [facility] Last Admin: 01/11/19 08:22 Dose: Not Given Documented by: Calcium/Vitamin D (Os-Bob 500mg + D) 1 tablet PO DAILY [facility] Last Admin: 01/11/19 08:30 Dose: 1 tablet Documented by: Celecoxib (Celebrex) 200 mg PO DAILY [facility] Last Admin: 01/11/19 08:30 Dose: 200 mg Documented by: Clonidine (Catapres) 0.2 mg PO DAILY [facility] Last Admin: 01/11/19 10:28 Dose: 0.2 mg Documented by: Cyclobenzaprine HCl (Cyclobenzaprine Hcl) 5 mg PO QHS [facility] Last Admin: 01/10/19 21:12 Dose: Not Given Documented by: Hydromorphone HCl (Dilaudid Inj) 1 mg IV Q2H PRN PRN PRN Reason: Pain Score 6-10/10 Last Admin: 01/10/19 19:57 Dose: 1 mg Documented by: Lactated Ringer's () 1,000 mls @ 100 mls/hr IV .Q10H [facility] Last Admin: 01/11/19 09:06 Dose: Not Given Documented by: Cefazolin Sodium 2 gm/ Sodium (Chloride) 110 mls @ 150 mls/hr IV Q8 [facility] Last Infusion: 01/11/19 06:26 Dose: Infused Documented by: Sodium Chloride () 250 mls @ 15 mls/hr IV .[id number] PRN PRN Reason: Saline Flush Levothyroxine Sodium (Synthroid) 125 mcg PO DAILY@0600 [facility] Last Admin: 01/11/19 05:42 Dose: 125 mcg Documented by: Meclizine HCl (Antivert) 12.5 mg PO TID PRN PRN PRN Reason: Vertigo [facility] Admin: 01/11/19 08:17 Dose: 500 mg Documented by: Nutritional Formula (Lactose Free) (Ensure Clear) 414 ml PO DAILY [facility] Last Admin: 01/11/19 10:28 Dose: 414 ml Documented by: Ondansetron HCl (Zofran) 4 mg IV Q8H PRN PRN PRN Reason: Nausea Rizatriptan Benzoate (Maxalt) 10 mg PO PRN PRN PRN Reason: MIGRAINE SYMPTOMS Last Admin: 01/10/19 21:32 Dose: 10 mg Documented by: Sodium Chloride () 10 - 40 ml IV UD PRN PRN Reason: SALINE FLUSH Trazodone HCl (Desyrel) 50 mg PO QHS [facility] Last Admin: 01/10/19 21:31 Dose: 50 mg Documented by: Discharge Diet: No Restrictions Discharge Activity: May Not Drive, May Not Shower, Use Walker, Use Crutches May shower in (days): 0 - No showering or tub baths. Sponge bath only. Ice area for (Minutes): 20 - I spine right knee 20 minutes on 20 minutes off every hour while awake until follow-up appointment. Weight Bearing Status: No weight bearing - To right leg with assistive devices. Keep extremity elevated above heart level: Operative Extremity - Above the level of heart as much as possible until follow-up appointment, Right Leg Additional Activity Instructions:: Keep dressing clean, dry, intact. Do not get dressing wet. Do not change or remove dressing. Protective dressing when sponge bathing with plastic bag and tape or cast protector. Elevate right leg above level of heart as much as possible until follow-up appointment. Ice behind right knee 20 minutes on 20 minutes off every hour while awake until follow-up appointment. Take medications as prescribed. No walking/standing on right foot. Call your doctor if your incision/area has: Continuous Slow Oozing, Sudden Increased Bleeding, Increased Pain/ Swelling Call your doctor if you observe: Fever of 101 or Higher, Coldness, Increased Pain, Shortness of breath, Dizziness, Fainting spells, Chest pain, Increased palpitations (irregular heartbeat), Calf discomfort, Uncontrolled pain Cleanse incision/area with: Keep Dressing Clean & Dry Home Medications: Medications to take at Discharge traZODone [Desyrel] 50 mg PO QHS 10/14/14 Celecoxib [Celebrex] 200 mg PO DAILY 03/16/16 Atorvastatin Calcium [Lipitor] 10 mg PO QHS 04/15/16 levothyroxine 137 mcg capsule 125 mcg PO QHS 09/18/17 rizatriptan 10 mg tablet 10 mg PO PRN PRN 09/18/17 Hydrocodone/Acetaminophen [Hydrocodone-Acetamin 5-325 mg] 1 tab PO Q6H PRN PRN 06/14/18 Meclizine HCl [Antivert] 12.5 mg PO TID PRN PRN #20 tablet 06/15/18 Acetaminophen [Tylenol Extra Strength] 500 - 1,000 mg PO Q6H PRN PRN 12/19/18 Cholecalciferol (Vitamin D3) [Vitamin D3] 5,000 unit PO DAILY 12/19/18 Clonidine HCl [Catapres] 0.2 mg PO DAILY 12/19/18 Lactose-Reduced Food [Protein Nutritional Shake] 414 ml PO DAILY 12/19/18 Metformin HCl [Glucophage Xr] 500 mg PO DAILY 12/19/18 Primary Care Physician: Rea Escobar MD [Primary Care Provider] - Please Follow Up With: Christopher Andrade DPM - On 01/15 at 11:00am Disposition: Home Minutes spent on discharge:: 30 Patient Condition:: Good Medical Necessity - Tobacco Use Smoking Status: Never smoker Tobacco Use: Non-smoker Meaningful Use Info Meaningful Use Diagnoses (Choose all that apply): None applicable Code Visit OBSV E&M: 66993 Observation care discharge Multi Select Codes - Visit Charges Observation E&M Codin Observation care discharge
[2019-01-11] MEDS: 0.9% Saline Lock 10 ML Syringe IV (13:00)
[2019-01-11 14:00] VITALS: BP 135/80; PULSE 80; RESP 18; TEMP 36.7; O2SAT 96
== END 2019-01-11 14:46 | disposition home or self-care (01) ==
LOC: MS2 20:44 → SDC 01-11 07:20 → MS2 01-11 07:20
PROVIDERS: Admitting Provider Podiatrist Foot & Ankle Surgery; Family Provider Internal Medicine; PCP Internal Medicine; Referring Provider Podiatrist Foot & Ankle Surgery; Visit Provider Podiatrist Foot & Ankle Surgery
DX: M96.0 Pseudarthrosis after fusion or arthrodesis (principal); M21.071 Valgus deformity, not elsewhere classified, right ankle; M19.071 Primary osteoarthritis, right ankle and foot; E11.9 Type 2 diabetes mellitus without complications; E07.9 Disorder of thyroid, unspecified; I10 Essential (primary) hypertension; Z79.899 Other long term (current) drug therapy; Z79.84 Long term (current) use of oral hypoglycemic drugs; E78.5 Hyperlipidemia, unspecified; G43.909 Migraine, unspecified, not intractable, without status migrainosus
CPT/HCPCS: 28715; 64445; 64447; 73610; 73630; 76000; 82962; 96361; 96365; 96366; 96375; 99218; 99251; C1713; J7120; A4216; G0378; G0379; G0463; J2405

== ENCOUNTER → 2019-04-23 15:59 | Outpatient (CLI) | payer BC, SELFPAY ==
[2019-01-10 19:11] VITALS: BMI 41.1
--- NOTE | 2019-04-23 16:07 | CT_ITS ---
STUDY: CT RIGHT FOOT REASON FOR EXAM: Female, 59 years old. PSEUDOARTRITIS. S/P SURGERY, HARDWARE REMOVAL DUE TO INFECTION RADIATION DOSAGE (If Supplied By Facility): CTDIvol = ( 15.35 ) mGy, DLP = ( 431.74 ) mGycm TECHNIQUE: Thin section transaxial imaging of the foot was obtained, with sagittal and coronal reconstructed images. Individualized dose optimization techniques were used for this CT. COMPARISON: November 16, 2018. FINDINGS: Subtalar surgical fixation with two calcaneal screws traversing the subtalar joint (sagittal images 23 series 601). Evidence of prior hardware removal (sagittal image 27 series 601). Near-complete subtalar joint fusion. Surgical hardware appears intact/well aligned. Anterior calcaneal osteotomy with spacer and surgical bracket (sagittal images 16 through 22 series 601). Surgical hardware appears intact/well aligned. Dorsal surgical hardware involving the talus, navicular and medial cuneiform (sagittal images 27 through 39 series 601). Surgical hardware appears intact/well aligned. Mild tibiotalar joint arthrosis. Advanced talonavicular joint arthrosis with partial osseous fusion. Advanced navicular cuneiform joint arthrosis with partial osseous fusion. Moderate tarsometatarsal joint arthrosis. Vomiting at the second and third digits. Plantar spur. Small Achilles enthesophyte. First through fifth metatarsals intact. First through fifth digits intact with mild degenerative features. Sesamoids intact. Diffuse osteopenia/osteoporosis. No acute fracture line. No acute dislocation. No new bone destruction. Mild soft tissue swelling predominantly at the lateral aspect of the lower leg (axial image 28 series 2) with skin surface irregularity. Diffuse circumferential soft tissue swelling at the ankle (axial image 50 series 2). Diffuse soft tissue swelling at the foot. Mild/moderate diffuse muscle atrophy. CT/Extremity Lower without Contra IMPRESSION: Uncomplicated postsurgical changes with evidence of prior hardware removal Advanced degenerative/postsurgical changes with areas of osseous coalition Soft tissue swelling with skin irregularities (correlate physical inspection) Electronically Signed: Scot Quigley DO at 8:45 EST Tel , Service support ,
== END ==
PROVIDERS: PCP Internal Medicine; Referring Provider Family Medicine; Visit Provider Podiatrist Foot & Ankle Surgery
DX: M96.0 Pseudarthrosis after fusion or arthrodesis (principal)
CPT/HCPCS: 73700

== ENCOUNTER → 2020-06-05 14:38 | Outpatient (CLI) | payer BC, SELFPAY ==
[2019-01-10 19:11] VITALS: BMI 41.1
--- NOTE | 2020-06-05 14:41 | CT_ITS ---
STUDY: CT SCAN LOWER EXTREMITY RIGHT REASON FOR EXAM: Female, 60 years old. PRIMARY OSTEOARTHRITIS, R ANKLE AND FOOT RADIATION DOSAGE (If Supplied By Facility): CTDIvol = ( 15.35 ) mGy, DLP = ( 477.79 ) mGycm. Individualized dose optimization techniques were used for this CT.? TECHNIQUE: Multiple axial tomographic images were obtained without intravenous contrast demonstration. Coronal and sagittal reconstruction was obtained as well. COMPARISON: Comparison is made with prior examination dated 04/23/2019. FINDINGS: Was again, the patient is subtalar surgical fixation with 2 calcaneal screws traversing the subtalar joint. There is evidence of a fusion of the joint at this time. The surgical hardware appears to be intact. Once again, there is dorsal surgical hardware involving the talus, navicular and medial cuneiform bones. Degenerative changes of the mid tibiotalar joint. There is also advanced talonavicular joint arthrosis with partial osseous fusion. Advanced navicular cuneiform joint arthrosis with partial osseous fusion. Moderate degree of tarsometatarsal arthrosis. CT/Extremity Lower without Contra IMPRESSION: Stable examination. Electronically Signed: Suleiman Garcia MD at 15:23 EDT , Service support ,
== END ==
PROVIDERS: PCP Internal Medicine; Referring Provider Podiatrist Foot & Ankle Surgery; Visit Provider Podiatrist Foot & Ankle Surgery
DX: M19.071 Primary osteoarthritis, right ankle and foot (principal); T84.84XA Pain due to internal orthopedic prosthetic devices, implants and grafts, initial encounter
CPT/HCPCS: 73700

== ENCOUNTER → 2020-08-25 07:23 | Outpatient (CLI) | payer BC, SELFPAY ==
[2019-01-10 19:11] VITALS: BMI 41.1
--- NOTE | 2020-08-25 08:57 | STRESSREP_ITS ---
Stress Test Report Date: 08-25-2020 Procedure: Pharmacologic stress nuclear imaging study Indications: Shortness of breath/dyspnea on exertion Consent: Per the patient Procedure: The patient underwent pharmacologic (Regadenoson 0.4mg ) evaluation with a peak heart rate of 105 beats per minute (65%predicted maximal heart rate) and a peak blood pressure of 162/100 mmHg. The baseline ECG demonstrated normal sinus rhythm. The peak pharmacologic ECG demonstrated no obvious ECG changes. There were no cardiac dysrhythmias pretest, during pharmacologic infusion, or recovery. The patient noted squeezing midsternal chest discomfort in recovery with subsequent spontaneous resolution in recovery. The examination was discontinued secondary to completion of protocol. Impression: 1. Pharmacologic (Regadenoson) evaluation 2. Peak pharmacologic ECG with no obvious ECG changes. 3. There were no cardiac dysrhythmias pretest, during pharmacologic infusion, or recovery. 4. Nuclear images pending Myocardial perfusion imaging study: Technique: The patient was injected with 14.0 millicuries of technetium 99m Cardiolite and subsequently rest SPECT Cardiolite nuclear imaging was obtained in the horizontal long, vertical long, and short axis views. The patient underwent pharmacologic (Regadenoson) evaluation with a peak heart rate of 105 beats per minute (65% percent predicted maximal heart rate) and a peak blood pressure of 162/100 mmHg. The patient was injected with 44.5 millicuries of technetium 99m Cardiolite and subsequently stress SPECT Cardiolite nuclear imaging was obtained in the horizontal long, vertical long, and short axis views. A gated Cardiolite study at peak stress was obtained. Interpretation: Rest and stress SPECT Cardiolite nuclear imaging status post realignment, normalization, and attenuation correction demonstrate a small area of subtle diminished tracer uptake near the apical segments without significant change between rest and stress. There is end systolic thickening and brightening. The gated Cardiolite study demonstrates myocardial thickening and inward wall motion. The reported LVEF is 84%. Impression: 1. Rest and stress SPECT Cardiolite nuclear imaging demonstrate myocardial perfusion changes appearing compatible with physiologic apical thinning with no myocardial perfusion changes considered diagnostic for associated stress-induced myocardial ischemia. 2. The gated Cardiolite study reports an LVEF of 84%. This note was generated with [employer] software. It may contain incorrect words, spelling, and punctuation that were not noted in checking the note before signing.
== END ==
PROVIDERS: PCP Internal Medicine; Referring Provider Internal Medicine; Visit Provider Internal Medicine
DX: Z91.89 Other specified personal risk factors, not elsewhere classified (principal); R07.2 Precordial pain
CPT/HCPCS: 78452; 93017; A9500; A4216; J2785

== ENCOUNTER → 2021-12-28 | Outpatient (CLI) | payer OTHER, SELFPAY ==
--- NOTE | 2021-12-28 07:38 | MRI_ITS ---
HISTORY: Constant low back pain, prior surgery in 2016. SPINAL STENOSIS, POST LAMI SYNDROME TECHNIQUE: Multiplanar and multisequence MR images of the lumbar spine were obtained without intravenous contrast. 154 images. COMPARISON: CT 03/16/2016. FINDINGS: VERTEBRAE: Vertebral body heights maintained. Degenerative bone marrow endplate changes at L2-3, L3-4, and L4-5. Artifact from bilateral hip arthroplasties. ALIGNMENT: No significant anterior or posterior subluxation. Chronic mild dextroscoliosis. CONUS: Normal morphology and position of the conus medullaris at T11. INTERVERTEBRAL DISCS: T12-L1: No significant posterior disc protrusion, central canal stenosis, or foraminal narrowing based on the sagittal images. L1-2: No significant posterior disc protrusion, central canal stenosis, or foraminal narrowing. L2-3: Chronic intervertebral disc space narrowing. Mild posterior disc bulge osteophyte complex with facet arthropathy resulting in minimal narrowing of the thecal sac and moderate bilateral foraminal narrowing. L3-4: Mild posterior disc bulge osteophyte complex with left hemilaminectomy and facet arthropathy resulting in no significant central canal stenosis, moderate bilateral foraminal narrowing, and abutment of the left L3 and L4 nerve roots. L4-5: Moderate disc bulge with facet arthropathy resulting in moderate-severe central canal stenosis, moderate right, and mild left foraminal narrowing with abutment of the right L4 and L5 nerve root. L5-S1: No significant posterior disc protrusion, central canal stenosis, or foraminal narrowing. SOFT TISSUES: No paraspinal fluid collection. MRI/Spine Lumbar (Routine) IMPRESSION: Degenerative change at L2-3 resulting in moderate bilateral foraminal narrowing. Degenerative and postoperative change at L3-4 with moderate bilateral foraminal narrowing and left nerve root abutment. Degenerative disc disease at L4-5 resulting in moderate-severe spinal canal stenosis, right greater than left foraminal narrowing, and right nerve root abutment. Electronically Signed: Carola Chacon MD at 9:46 EST ,
== END | disposition home or self-care (01) ==
LOC: MRI 07:28
PROVIDERS: PCP Internal Medicine; Visit Provider Orthopaedic Surgery
DX: M48.061 Spinal stenosis, lumbar region without neurogenic claudication (principal); M96.1 Postlaminectomy syndrome, not elsewhere classified; M47.26 Other spondylosis with radiculopathy, lumbar region
CPT/HCPCS: 72148

== ENCOUNTER 2022-11-20 21:17 | Emergency (ER) | payer OTHER, SELFPAY ==
[2022-11-20 21:19] VITALS: BP 159/87; PULSE 78; RESP 16; TEMP 35.8; BMI 36.2
[2022-11-20 21:21] VITALS: BP 159/87; PULSE 78; RESP 16; TEMP 35.8
--- NOTE | 2022-11-20 21:49 | EDS_ITS ---
HPI History of Present Illness Chief Complaint: Rash Informant: patient Onset/Context/Timing Onset: Yesterday Context: Gradual Onset Current Severity: Moderate Maximum Severity: Moderate Narrative Narrative: Patient presents secondary to rash. She developed an itching rash over her posterior scalp, chest, axilla, abdomen, and back since last evening. She recently started taking doxycycline and Flagyl this week. She does not know that she is ever had either of these medications. She did take a dose of Benadryl earlier today without much improvement. She recently had a gastric sleeve surgery. She denies any other new foods or detergents. [facility] Medical History (Updated 11/20/22 @ 22:[address] Freida Elliott MD) Common migraine without intractability DDD (degenerative disc disease), lumbar Diabetes mellitus DJD (degenerative joint disease) of pelvis Dysmetabolic syndrome X Greater trochanteric bursitis Hypercholesteremia Lumbago Nontoxic nodular goiter Home Medications trazodone 50 mg tablet 50 mg PO QHS depression 10/14/14 [History Last Taken 06/13/18 22:00] celecoxib 200 mg capsule 200 mg PO DAILY arthritis 03/16/16 [History Last Taken 06/13/18 22:00] atorvastatin 20 mg tablet 10 mg PO QHS cholesterol 04/15/16 [History Last Taken 06/13/18 22:00] levothyroxine 137 mcg capsule 125 mcg PO QHS thyroid 09/18/17 [History Last Taken 06/13/18 22:00] rizatriptan 10 mg tablet (Maxalt) 10 mg PO PRN PRN Migraine Symptoms 09/18/17 [History Last Taken 05/27/18 14:00] hydrocodone-acetaminophen 5-325mg 5mg-325mg 1 tab PO Q6H PRN PRN Pain 06/14/18 [History Last Taken 06/13/18 19:00] meclizine 12.5 mg tablet 12.5 mg PO TID PRN PRN Vertigo ##20 06/15/18 [Rx Last Taken Unknown] acetaminophen 500 mg tablet 500 - 1,000 mg PO Q6H PRN PRN Pain Or Fever 12/19/18 [History Last Taken Unknown] cholecalciferol (vitamin D3) 125 mcg (5,000 unit) capsule 5,000 unit PO DAILY 12/19/18 [History Last Taken Unknown] clonidine HCl 0.2 mg tablet 0.2 mg PO DAILY 12/19/18 [History Last Taken Unknown] food supplemt, lactose-reduced 414 ml PO DAILY 12/19/18 [History Last Taken Unknown] metformin 500 mg tablet,extended release 24 hr 500 mg PO DAILY 12/19/18 [History Last Taken Unknown] famotidine 40 mg tablet (Pepcid) 40 mg PO DAILY #10 tabs 11/20/22 [Rx Last Taken Unknown] hydroxyzine pamoate 50 mg capsule (Vistaril) 50 mg PO TID PRN itching #14 caps 11/20/22 [Rx Last Taken Unknown] Allergy/AdvReac Type Severity Reaction Status Date / Time cortisone AdvReac lightheaded, Verified 11/20/22 21:18 injection site burning diclofenac sodium AdvReac Nausea/Vom/ Verified 11/20/22 21:18 [From Voltaren] Diarrhea nabumetone [From Relafen] AdvReac GI UPSET Verified 11/20/22 21:18 Family History Mother Malignant hyperthermia due to anesthesia Diabetes Heart disease Kidney disease CVA (cerebral vascular accident) Father Thyroid disorder Brother Asthma Cancer Skin Surgical History H/O gastric sleeve History of back surgery History of left hip replacement History of right hip replacement Hx of cholecystectomy Hx of thyroidectomy Social History Smoking Status: Never smoker second hand exposure: No alcohol intake: current alcohol intake frequency: holidays/special occasions only substance use type: does not use caffeine: Yes what type of physical activity do you participate in: none frequency: does not exercise seatbelt use: always ROS ROS ED Constitutional Constitutional ED: Denies chills or fever(s) Eyes Eyes: Denies discharge from eye(s) ENT ENT ED: Denies discharge from eye(s), rhinorrhea or sore throat Cardiovascular Cardiovascular: Denies chest pain Respiratory/Chest Respiratory/Chest: Denies cough or dyspnea Gastrointestinal Gastrointestinal: Denies abdominal pain, nausea or vomiting Genitourinary Genitourinary ED: Denies dysuria Musculoskeletal Musculoskeletal: Denies back pain or extremity pain Integumentary Reports rash; Denies Abrasions Neurologic Neurologic: Denies headache(s) or weakness Psychiatric Psychiatric: Denies anxiety Endocrine Endocrinology: Denies polydipsia or polyuria Allergic/Immunologic Allergic/Immunologic ED: Denies lip swelling or urticaria EXAM Physical Exam Const Vital Signs: 11/20/22 21:19 11/20/22 21:21 Temperature 96.4 F L 96.4 F L Temperature Source Temporal Temporal Pulse Rate 78 78 Respiratory Rate 16 16 Blood Pressure 159/87 H 159/87 H Blood Pressure Mean 111 111 Positive well nourished and well developed General Appearance ED: well developed Eyes EOMs intact bilaterally Chest Wall inspection of chest normal and palpation of chest normal Resp normal respiratory effort and clear to auscultation bilaterally Cardio regular rate and regular rhythm GI non-tender Palpation: soft Neuro oriented x3 and no sensory deficits noted Motor Exam: strength 5/5 throughout Psych mental status grossly normal Skin Skin Narrative: Patient has urticarial rash noted to the axilla, chest, abdomen, and back. MDM MDM MDM Narrative Medical decision making narrative: Patient would like to try to avoid Benadryl if possible as it makes her mouth very dry and she has been struggling to drink fluids with her recent gastric sleeve surgery. I will give her a dose of Vistaril to help with itching, but did warn her that it might make her feel dry also. She will be given a dose of Pepcid. In order to avoid putting steroids on her stomach I will give her an injection of Kenalog for slow release. I do suspect her rash is secondary to Flagyl as this is a new medication and is commonly associated with rashes. On repeat evaluation erythema is slightly improved. Patient states the itching was improved but seems to be getting worse again. She does not want to take Benadryl. I will write her prescription for Vistaril and Pepcid. I advised her not to take the Flagyl but to call her PCP in the morning for a different antibiotic regimen. She is currently on the secondary to H. pylori. Discharge Plan Triage Chief Complaint: Rash ED Provider: Freida Elliott Dx/Rx/DC Orders Clinical Impression: Urticaria, Allergic drug reaction Instructions: ED ADVERSE DRUG REACTION Allergic, ED Hives (Adult) Prescriptions: New hydroxyzine pamoate [Vistaril] 50 mg capsule 50 mg PO TID PRN (Reason: itching) Qty: 14 0RF famotidine [Pepcid] 40 mg tablet 40 mg PO DAILY Qty: 10 0RF No Action levothyroxine 137 mcg capsule 137 mcg capsule 125 mcg PO QHS rizatriptan [Maxalt] 10 mg tablet 10 mg PO PRN PRN (Reason: Migraine Symptoms) trazodone 50 MG tablet 50 mg PO QHS celecoxib 200 MG capsule 200 mg PO DAILY atorvastatin 20 MG tablet 10 mg PO QHS hydrocodone-acetaminophen 5 MG-32 tablet 1 tab PO Q6H PRN PRN (Reason: Pain) meclizine 12.5 MG tablet 12.5 mg PO TID PRN PRN (Reason: Vertigo) Qty: 20 0RF acetaminophen 500 MG tablet 500 - 1,000 mg PO Q6H PRN PRN (Reason: Pain Or Fever) clonidine HCl 0.2 MG tablet 0.2 mg PO DAILY metformin 500 MG tablet extended release 24 hr 500 mg PO DAILY cholecalciferol (vitamin D3) 5,000 UNIT capsule 5,000 unit PO DAILY food supplemt, lactose-reduced 414 ML liquid 414 ml PO DAILY Primary Care Provider: Rea Escobar Referrals: Rea Escobar MD [Primary Care Provider] - As soon as possible Activity Restrictions/Additional Instructions: As discussed, please stop taking your Flagyl (metronidazole). Please call Dr. Escobar in the morning and let her know that you had an allergic reaction to this medication. Based on her other test results she will recommend a different treatment regimen. Disposition Disposition: Home, Self Care
[2022-11-20] MEDS: Famotidine 20 MG Tablet 40 MG PO (21:59)
[2022-11-20] MEDS: Triamcinolone Acetonide 40 MG/ML Vial IM (21:59)
[2022-11-20] MEDS: hydrOXYzine PAM 25 MG Capsule PO ×2 (21:59→22:56)
== END 2022-11-20 22:57 | disposition home or self-care (01) ==
PROVIDERS: Emergency Provider Emergency Medicine; PCP Internal Medicine; Visit Provider Emergency Medicine
DX: T78.40XA Allergy, unspecified, initial encounter (principal); E11.9 Type 2 diabetes mellitus without complications; L50.9 Urticaria, unspecified; E78.00 Pure hypercholesterolemia, unspecified
CPT/HCPCS: 96372; 99283

== ENCOUNTER 2024-01-15 16:26 | Emergency (ER) | payer OTHER, SELFPAY ==
[2024-01-15] VITALS (10 sets, daily range): BP systolic 127–150; BP diastolic 76–136; PULSE 54–72; RESP 11–22; TEMP 35.8–36.7; O2SAT 97–100; BMI 31.5
--- NOTE | 2024-01-15 16:45 | EKG12_ITS ---
Test Reason : SYNCOPE Blood Pressure : */* mmHG Vent. Rate : 54 BPM Atrial Rate : 54 BPM P-R Int : 174 ms QRS Dur : 82 ms QT Int : 448 ms P-R-T Axes : 56 -15 29 degrees QTcB Int : 424 ms Sinus bradycardia Low voltage QRS Borderline ECG When compared with ECG of 14-Jun-2018 21:07, Vent. rate has decreased by 29 bpm T wave inversion no longer evident in Anterior leads Confirmed by Quincy Simmons ([id number]), editorial assistant JITENDRA LANCASTER ([id number]) on 01/19/2024 6:57:07 AM Referred By: Scot Potter Confirmed By: Quincy Simmons
--- NOTE | 2024-01-15 16:49 | EDS_ITS ---
HPI <ARUN Steele - Last Filed: 01/15/24 19:15> History of Present Illness Chief Complaint: Syncope Narrative Narrative: Patient is a 64-year-old female with history of arthritis, vertigo, degenerative disc disease who presents to the emergency department after a syncopal episode. Patient states she does take sleeping pills at night, and usually within 10 minutes if she is not in bed she can get dizzy. She went to bed at approximately 1030 or 11 PM when she took her sleeping pills. Secondary to having some stress she did not fall asleep until 3 AM. She woke at 4:00 to walk her dog where she felt dizzy which she described as more vertiginous. She then went to the garage, and had a syncopal episode. She states that she landed on her chest on a propane tank, and woke up on the garage floor and she was incontinent of urine. She said she then went back to bed, got up and went to work. Patient called her PCP who referred her to the ER. Most of the patient's pain is in her chest where she struck the propane tank, she has slight neck pain , right wrist pain. She denies any chest pain or shortness of breath. [facility] <ARUN Steele - Last Filed: 01/15/24 19:15> [facility] Medical History (Updated 01/15/24 @ 19:12 by ARUN Steele) Hypercholesteremia Nontoxic nodular goiter Greater trochanteric bursitis Lumbago Dysmetabolic syndrome X DJD (degenerative joint disease) of pelvis Diabetes mellitus DDD (degenerative disc disease), lumbar Common migraine without intractability Home Medications ?Medication ?Instructions ?Recorded ?Last Taken ?Type trazodone 50 mg tablet 50 mg PO QHS depression 10/14/14 06/13/18 22:00 History celecoxib 200 mg capsule 200 mg PO DAILY arthritis 03/16/16 06/13/18 22:00 History atorvastatin 20 mg tablet 10 mg PO QHS cholesterol 04/15/16 06/13/18 22:00 History levothyroxine 137 mcg capsule 125 mcg PO QHS thyroid 09/18/17 06/13/18 22:00 History rizatriptan 10 mg tablet (Maxalt) 10 mg PO PRN PRN Migraine Symptoms 09/18/17 05/27/18 14:00 History hydrocodone-acetaminophen 5-325mg 1 tab PO Q6H PRN PRN Pain 06/14/18 06/13/18 19:00 History 5mg-325mg meclizine 12.5 mg tablet 12.5 mg PO TID PRN PRN Vertigo ##20 06/15/18 Unknown Rx acetaminophen 500 mg tablet 500 - 1,000 mg PO Q6H PRN PRN Pain 12/19/18 Unknown History Or Fever cholecalciferol (vitamin D3) 125 5,000 unit PO DAILY 12/19/18 Unknown History mcg (5,000 unit) capsule clonidine HCl 0.2 mg tablet 0.2 mg PO DAILY 12/19/18 Unknown History food supplemt, lactose-reduced 414 ml PO DAILY 12/19/18 Unknown History metformin 500 mg tablet,extended 500 mg PO DAILY 12/19/18 Unknown History release 24 hr famotidine 40 mg tablet (Pepcid) 40 mg PO DAILY #10 tabs 11/20/22 Unknown Rx hydroxyzine pamoate 50 mg capsule 50 mg PO TID PRN itching #14 caps 11/20/22 Unknown Rx (Vistaril) Allergy/AdvReac Type Severity Reaction Status Date / Time cortisone AdvReac lightheaded, Verified 01/15/24 16:26 injection site burning diclofenac sodium (From AdvReac Nausea/Vom/ Verified 01/15/24 16:26 Voltaren) Diarrhea nabumetone (From Relafen) AdvReac GI UPSET Verified 01/15/24 16:26 Family History Mother Malignant hyperthermia due to anesthesia Diabetes Heart disease Kidney disease CVA (cerebral vascular accident) Father Thyroid disorder Brother Asthma Cancer Skin Surgical History H/O gastric sleeve Hx of cholecystectomy History of back surgery History of right hip replacement History of left hip replacement Hx of thyroidectomy Social History Smoking Status: Never smoker second hand exposure: No alcohol intake: current alcohol intake frequency: holidays/special occasions only substance use type: does not use caffeine: Yes what type of physical activity do you participate in: none frequency: does not exercise seatbelt use: always ROS <ARUN Steele - Last Filed: 01/15/24 19:15> ROS ED ROS Narrative Constitutional: Negative for fever, chills, weight loss, weakness Eyes: Negative for vision loss, vision change, double vision ENT: Negative for any sore throat, ear pain, congestion Cardiovascular: Negative for any chest pain, tightness, palpitations. Positive chest wall pain Respiratory: Negative for any cough, sputum production, hemoptysis, dyspnea, dyspnea on exertion, orthopnea Gastrointestinal: Negative for any abdominal pain, nausea, vomiting, diarrhea, constipation, blood in stool, blood in vomit : Negative for any urinary frequency, dysuria, retention, blood in urine Muscle skeletal: Negative for any neck pain, back pain. Positive right wrist pain Neurological: Negative for any headache. Positive for syncope, dizziness Skin: Negative for any rashes, itching, abrasions, lacerations Psychiatric: Negative for any depression, anxiety, stress, suicidal ideation, homicidal ideation Hematologic: Negative for any excessive bruising, easy bleeding EXAM <ARUN Steele - Last Filed: 01/15/24 19:15> Physical Exam Narrative Exam Narrative: Vital signs reviewed. HEET: Head normocephalic atraumatic, TMs clear bilaterally. Posterior pharynx is clear, moist mucous membranes. Nares clear bilaterally. Pupils are equal ro und reactive to light, negative for any hemotympanum or septal hematoma. Neck: Supple with no lymphadenopathy or tenderness. No signs of meningismus. Cardiac: Regular rate and rhythm no murmurs gallops or rubs, equal peripheral pulses bilaterally. Respiratory: Lungs clear to auscultation bilaterally. Patient does have some left-sided anterior chest wall pain, ecchymosis, abrasion. There is no crepitus or free air. Patient has equal breath sounds. Most the pain is on palpation. Abdomen: Soft, nontender, nondistended. No abdominal bruit or pulsatile masses. No hepatosplenomegaly Extremities: No peripheral edema, no signs of gross trauma or deformity. Active full range of motion of all extremities. Patient does have some ecchymosis to the right wrist on the anterior aspect, there is no pain with flexion or extension. Neuro: Cranial nerves II through XII intact, no focal neurological deficits. Negative for any nystagmus, negative Pham-Hallpike maneuver. Skin: Clean dry and intact with no rash, purpura, petechiae, vesicles or pustules. Backs/flank: No CVA tenderness, no midline spinal tenderness, no deformity. Psych: Normal mood and affect. No SI, HI or acute psychosis. Const Vital Signs: 01/15/24 16:27 01/15/24 16:45 01/15/24 17:08 Temperature 96.4 F L Temperature Source Temporal Pulse Rate 63 58 L Respiratory Rate 18 11 L Respiratory Effort Respiratory Pattern Blood Pressure 149/115 H Blood Pressure Mean 126 Pulse Ox 100 Oxygen Delivery Method Room Air Room Air 01/15/24 17:18 01/15/24 17:30 01/15/24 17:45 Temperature Temperature Source Pulse Rate 60 59 L Respiratory Rate 13 22 H Respiratory Effort Normal Non-Labored Respiratory Pattern Normal Blood Pressure 148/84 H 150/136 H Blood Pressure Mean 102 142 Pulse Ox Oxygen Delivery Method 01/15/24 18:00 01/15/24 18:15 01/15/24 18:30 Temperature Temperature Source Pulse Rate 56 L 55 L Respiratory Rate 13 14 Respiratory Effort Respiratory Pattern Blood Pressure 144/83 H 127/85 H Blood Pressure Mean 99 99 Pulse Ox Oxygen Delivery Method 01/15/24 18:45 01/15/24 19:00 01/15/24 19:30 Temperature 98.0 F Temperature Source Pulse Rate 54 L 59 L 72 Respiratory Rate 13 13 15 Respiratory Effort Respiratory Pattern Blood Pressure 127/91 H 129/76 H Blood Pressure Mean 103 93 Pulse Ox 97 Oxygen Delivery Method Positive well nourished and well developed General Appearance ED: well developed <Dr. Scot Potter, DO - Last Filed: 01/15/24 20:28> Physical Exam Const Vital Signs: 01/15/24 16:27 01/15/24 16:45 01/15/24 17:08 Temperature 96.4 F L Temperature Source Temporal Pulse Rate 63 58 L Respiratory Rate 18 11 L Respiratory Effort Respiratory Pattern Blood Pressure 149/115 H Blood Pressure Mean 126 Pulse Ox 100 Oxygen Delivery Method Room Air Room Air 01/15/24 17:18 01/15/24 17:30 01/15/24 17:45 Temperature Temperature Source Pulse Rate 60 59 L Respiratory Rate 13 22 H Respiratory Effort Normal Non-Labored Respiratory Pattern Normal Blood Pressure 148/84 H 150/136 H Blood Pressure Mean 102 142 Pulse Ox Oxygen Delivery Method 01/15/24 18:00 01/15/24 18:15 01/15/24 18:30 Temperature Temperature Source Pulse Rate 56 L 55 L Respiratory Rate 13 14 Respiratory Effort Respiratory Pattern Blood Pressure 144/83 H 127/85 H Blood Pressure Mean 99 99 Pulse Ox Oxygen Delivery Method 01/15/24 18:45 01/15/24 19:00 01/15/24 19:30 Temperature 98.0 F Temperature Source Pulse Rate 54 L 59 L 72 Respiratory Rate 13 13 15 Respiratory Effort Respiratory Pattern Blood Pressure 127/91 H 129/76 H Blood Pressure Mean 103 93 Pulse Ox 97 Oxygen Delivery Method MDM <ARUN Steele - Last Filed: 01/15/24 19:15> [facility] Lab Data Labs: Laboratory Results - last 24 hr 01/15/24 16:55 WBC 7.3 RBC 4.49 Hgb 13.4 Hct 41.3 MCV 92.0 MCH 29.8 MCHC 32.4 RDW Std Deviation 45.1 H RDW Coeff of Blu 13.2 Plt Count 246 MPV 10.0 Immature Gran % (Auto) 0.100 Neut % (Auto) 59.3 Lymph % (Auto) 31.7 [place] % (Auto) 7.4 Eos % (Auto) 1.0 Baso % (Auto) 0.5 Absolute Neuts (auto) 4.3 Absolute Lymphs (auto) 2.31 Nucleated RBC % 0 Sodium 139 Potassium 4.1 Chloride 106 Carbon Dioxide 29.0 Anion Gap 4 L BUN 22 H Creatinine 1.14 H Estim Creat Clear Calc 53.95 Est GFR (MDRD) Af Amer 62 Est GFR (MDRD) Non-Af 51 L BUN/Creatinine Ratio 19.3 Glucose 103 Calcium 9.3 Troponin I High Sens 4 Radiography Diagnostic Testing: Clinical Impression(s) from Imaging Studies Brain CT 01/15/24 17:14 IMPRESSION: No acute intracranial abnormality. Empty sella. Electronically Signed: Dimitrios Barton MD at 18:34 EST , Cervical Spine CT 01/15/24 17:14 IMPRESSION: Multilevel degenerative changes, as described above. Electronically Signed: Dimitrios Barton MD at 18:40 EST , Chest X-Ray 01/15/24 17:15 IMPRESSION: Degenerative changes, as described above. No demonstrated acute cardiopulmonary process. Electronically Signed: Dimitrios Barton MD at 18:44 EST , Wrist X-Ray 01/15/24 17:15 IMPRESSION: Normal x-ray examination of the wrist. Electronically Signed: Dimitrios Barton MD at 18:46 EST Reading Location ID and State: [facility] / [place] , Service support , EKG EKG shows a sinus bradycardia rate of 54 bpm: Attestation: I personally reviewed and interpreted this EKG as follows: Comments: EKG shows sinus bradycardia with a rate of 54 bpm, KS interval 174 ms, QRS duration 82 ms, no acute ST elevation, no acute infarct noted. Treatment and Re-Evaluation :: Differential diagnosis includes however is not limited to: Benign positional peripheral vertigo, chest wall contusion, rib fracture, ACS, OR, arrhythmia, medication reaction, vasovagal syncope Patient appears generally well, vital signs are stable, patient is nontoxic- appearing. Presenting to the emergency department after syncopal episode at 4:00 this morning. Patient will see the cardiac workup, including EKG, troponin, basic laboratory values. CT scan of the brain cervical spine will be completed as well as a chest x-ray and right wrist x-ray. All radiologic examinations were read, reviewed by the emergency department attending. From these reads, a plan of care will be put in place. Patient CT scan of the brain shows no acute intracranial abnormality, CT of the cervical spine shows degenerative changes however no fracture. Chest x-ray shows no acute cardiopulmonary disease, no free air, wrist x-ray shows normal examination of the wrist. Laboratory values show a normal CBC, patient's chemistries show a creatinine of 1.14 this is baseline. Troponin was 4 and negative. Patient was ambulatory and steady. At this time, do we have the patient stable for discharge. She will ice her chest. She instructed to change positions slowly. All questions were answered, patient stable for discharge. <Dr. Scot Potter, DO - Last Filed: 01/15/24 20:28> [facility] Narrative Medical decision making narrative: I have personally performed a face to face assessment of the patient and have reviewed the KARINA Note. I performed a substantive portion of the visit including all aspects of the following. My estrada findings include: History: Patient presents with a syncopal episode that occurred today. Patient states she woke up early this morning to take her dogs out. Patient states that when she was bringing the dog back in, she passed out. Patient states she fell onto a propane tank in her garage. Patient states she was incontinent of urine at that time. Patient states she took a sleeping pill last night prior to going to bed. Patient denies any palpitations. Patient denies any lightheadedness or dizziness. Patient admits to some pain across her chest but states that is from when she had the propane tank. Exam: Vital signs are stable except for mildly elevated blood pressure of 149/115. Patient is afebrile. Patient is in no acute distress. Oral mucosa is pink and moist. Neck is supple. Trachea is midline. There is no JVD. Heart was regular rate and rhythm. Lungs are clear and equal bilaterally. There is tenderness across the anterior chest. There is no bony crepitance or step-off. There is no subcutaneous emphysema palpated. Abdomen is soft. Bowel sounds are normal. There is no tenderness. Cranial nerves II through XII are intact. There are no focal motor or sensory deficits. Medical Decision Making: Differential diagnosis includes medication side effect, cardiac dysrhythmia, cardiac ischemia, electrolyte abnormality, dehydration, wrist fracture, rib fracture, pneumothorax, and contusion. EKG will be obtained to assess for cardiac dysrhythmia and cardiac ischemia. CT scan of the brain will be obtained to assess for stroke and intracranial bleeding. CT scan of the cervical spine will be obtained to assess for cervical spine fracture. X-rays of the right wrist will be obtained to assess for fracture. Chest x-ray will be obtained to assess for widened mediastinum, pneumothorax, and rib fracture. CBC will be obtained to assess for leukocytosis and anemia. Basic metabolic profile will be obtained to assess for electrolyte abnormality and renal function. High-sensitivity troponin will be obtained to assess for cardiac ischemia. EKG was obtained. On my independent interpretation, it showed sinus bradycardia with a rate of 54. There is low voltage QRS. [place] interval, QRS interval, QTc intervals were within normal limits. There is borderline left axis deviation at -15. There are no acute ST or T wave changes. This was unchanged compared to previous EKG dated 08/25/2020 from a stress test. PA and lateral chest x-ray was obtained. There are 2 views. On my independent interpretation, lung heck are clear. There is normal cardiac silhouette. Bony thorax is normal. There is no acute process noted. Radiologist also interpreted the x-ray and agrees. CT scan of the brain was obtained. There is no acute intracranial abnormality. This was interpreted by the radiologist and was also independently reviewed by myself. CT scan of the cervical spine was obtained. There is no acute fracture or spondylolisthesis. There are some degenerative changes noted. Radiologist also interpreted the x-rays and agrees. X-rays of the right wrist were obtained. There are 3 views. On my independent interpretation, there is no acute fracture or dislocation noted. Radiologist also interpreted the x-rays and agrees. CBC was reviewed and was within normal limits. Basic metabolic profile was reviewed and was within normal limits. High-sensitivity troponin was reviewed and was normal at 4. Patient was advised of her findings. Patient was instructed to follow-up with her primary care physician in 5 to 6 days for further evaluation. Patient understood and was agreeable with the plan. All questions were answered. Lab Data Labs: Laboratory Results - last 24 hr 01/15/24 16:55 WBC 7.3 RBC 4.49 Hgb 13.4 Hct 41.3 MCV 92.0 MCH 29.8 MCHC 32.4 RDW Std Deviation 45.1 H RDW Coeff of Blu 13.2 Plt Count 246 MPV 10.0 Immature Gran % (Auto) 0.100 Neut % (Auto) 59.3 Lymph % (Auto) 31.7 [place] % (Auto) 7.4 Eos % (Auto) 1.0 Baso % (Auto) 0.5 Absolute Neuts (auto) 4.3 Absolute Lymphs (auto) 2.31 Nucleated RBC % 0 Sodium 139 Potassium 4.1 Chloride 106 Carbon Dioxide 29.0 Anion Gap 4 L BUN 22 H Creatinine 1.14 H Estim Creat Clear Calc 53.95 Est GFR (MDRD) Af Amer 62 Est GFR (MDRD) Non-Af 51 L BUN/Creatinine Ratio 19.3 Glucose 103 Calcium 9.3 Troponin I High Sens 4 Radiography Diagnostic Testing: Clinical Impression(s) from Imaging Studies Brain CT 01/15/24 17:14 IMPRESSION: No acute intracranial abnormality. Empty sella. Electronically Signed: Dimitrios Barton MD at 18:34 EST , Cervical Spine CT 01/15/24 17:14 IMPRESSION: Multilevel degenerative changes, as described above. Electronically Signed: Dimitrios Barton MD at 18:40 EST Reading Location ID and State: [facility] / [place] , Service support , Chest X-Ray 01/15/24 17:15 IMPRESSION: Degenerative changes, as described above. No demonstrated acute cardiopulmonary process. Electronically Signed: Dimitrios Barton MD at 18:44 EST Reading Location ID and State: [facility] / [place] , Service support , Wrist X-Ray 01/15/24 17:15 IMPRESSION: Normal x-ray examination of the wrist. Electronically Signed: Dimitrios Barton MD at 18:46 EST , Discharge Plan Triage Chief Complaint: Syncope ED Midlevel Provider: Evelio Rogers ED Provider: Scot Potter Dx/Rx/DC Orders Clinical Impression: Syncope, Chest wall contusion, Right wrist sprain Instructions: Causes of Syncope, ED Soft Tissue Contusion, ED Bruise, Rib, ED Wrist Sprain Prescriptions: No Action levothyroxine 137 mcg capsule 125 mcg PO QHS rizatriptan [Maxalt] 10 mg tablet 10 mg PO PRN PRN (Reason: Migraine Symptoms) trazodone 50 MG tablet 50 mg PO QHS celecoxib 200 MG capsule 200 mg PO DAILY atorvastatin 20 MG tablet 10 mg PO QHS hydrocodone-acetaminophen 5 MG-32 tablet 1 tab PO Q6H PRN PRN (Reason: Pain) meclizine 12.5 MG tablet 12.5 mg PO TID PRN PRN (Reason: Vertigo) Qty: 20 0RF acetaminophen 500 MG tablet 500 - 1,000 mg PO Q6H PRN PRN (Reason: Pain Or Fever) clonidine HCl 0.2 MG tablet 0.2 mg PO DAILY metformin 500 MG tablet extended release 24 hr 500 mg PO DAILY cholecalciferol (vitamin D3) 5,000 UNIT capsule 5,000 unit PO DAILY food supplemt, lactose-reduced 414 ML liquid 414 ml PO DAILY hydroxyzine pamoate [Vistaril] 50 mg capsule 50 mg PO TID PRN (Reason: itching) Qty: 14 0RF famotidine [Pepcid] 40 mg tablet 40 mg PO DAILY Qty: 10 0RF Primary Care Provider: Rea Escobar Referrals: Rea Escobar MD [Primary Care Provider] - Activity Restrictions/Additional Instructions: Please ice, change positions slowly. Print Language: Frisian Disposition Disposition: Home, Self Care Discharge Date/Time: 01/15/24 19:31
[2024-01-15 17:04] LABS: Absolute Lymphocyte Count 2.31 X10^3/uL (0.83-4.51); Absolute Neutrophil Count 4.3 X10^3/uL (2.0-7.7); Basophil# 0.04 X10^3/uL; Basophil% 0.5 % (0-1); Eosinophil# 0.07 X10^3/uL; Hematocrit 41.3 % (37-47); Hemoglobin 13.4 g/dL (12.0-15.0); Lymphocyte # 2.31 X10^3/ul (0.83-4.51); Lymphocyte % 31.7 % (19-41); Mean Corp Hgb Conc 32.4 g/dL (32-36); Mean Corpuscular Hgb 29.8 pg (27.0-32.0); Monocyte# 0.54 X10^3/uL; Monocyte% 7.4 % (0-10); NRBC Flagged by Analyzer 0 % (0-5); Neutrophil # 4.32 X10^3/uL (2.7-7.7); Neutrophil % 59.3 % (47-70); Platelet Count 246 K/mm3 (150-450); RBC Distribution Width CV 13.2 % (11.6-14.6); RBC Distribution Width SD 45.1 fl (35.1-43.9); Red Blood Count 4.49 M/mm3 (4.2-5.4); White Blood Count 7.3 K/mm3 (4.4-11.0)
--- NOTE | 2024-01-15 17:14 | CT_ITS ---
STUDY: CT CERVICAL SPINE WITHOUT CONTRAST REASON FOR EXAM: Female, 64 years old. Fall RADIATION DOSAGE (If Supplied By Facility): CTDIvol = ( 24.26 ) mGy, DLP = ( 489.12 ) mGycm TECHNIQUE: High resolution transaxial imaging was performed without contrast material. Sagittal and coronal images were reconstructed. Individualized dose optimization techniques were used for this CT. COMPARISON: None FINDINGS: Normal craniovertebral junction. Normal anterior atlantoaxial articulation. Normal odontoid process. There is straightening of the normal cervical lordosis. There is no acute fracture. Normal vertebral bodies and posterior osseous elements. C2-3: Normal endplates. Normal disc height and morphology. Normal central canal and intervertebral neuroforamina. C3-4: Mild spurring. Mild facet spurring. Normal central canal and intervertebral neuroforamina. C4-5: Disc space narrowing with endplate change. Disc bulging and spurring asymmetric to the right. Facet right more than the left. Moderate canal stenosis. Right greater than left foraminal narrowing. C5-6: Disc bulge and spurring to the right. Facet spurring on the right more than the left. Mild canal stenosis. Right foraminal narrowing. C6-7: Disc space narrowing and endplate change. Spurring to the right. Facet spurring. Mild canal stenosis. Mild foraminal narrowing. C7-T1: Normal endplates. Normal disc height and morphology. Facet spurring. Normal central canal and intervertebral neuroforamina. Normal visualized soft tissue structures. There are atherosclerotic calcifications. CT/Spine Cervical without Contras IMPRESSION: Multilevel degenerative changes, as described above. Electronically Signed: Dimitrios Barton MD at 18:40 EST ,
--- NOTE | 2024-01-15 17:14 | CT_ITS ---
STUDY: CT BRAIN WITHOUT CONTRAST REASON FOR EXAM: Female, 64 years old. Syncope RADIATION DOSAGE (If Supplied By Facility): CTDIvol = ( 44.99 ) mGy, DLP = ( 812.98 ) mGycm TECHNIQUE: Transaxial CT imaging of the brain was performed without administration of intravenous contrast material. Individualized dose optimization techniques were used for this CT. COMPARISON: MRI June 15, 2018 FINDINGS: Normal soft tissue structures. Normal calvarium. Normal size ventricles and extra-axial spaces for the patient''s age. Normal white matter tracts of the cerebral hemispheres. Normal basal ganglia and thalami. There is an empty sella. Normal brainstem. Normal cerebellum. There is no intracranial hemorrhage. There are no findings of an acute ischemic infarction. Normal visualized paranasal sinuses. CT/Brain/Head without Contrast IMPRESSION: No acute intracranial abnormality. Empty sella. Electronically Signed: Dimitrios Barton MD at 18:34 EST ,
--- NOTE | 2024-01-15 17:15 | RAD_ITS ---
STUDY: X-RAY CHEST REASON FOR EXAM: Female, 64 years old. Chest pain TECHNIQUE: PA and lateral views of the chest. COMPARISON: None. FINDINGS: The lungs are clear and expanded. There is no demonstrated pleural abnormality. Normal size heart. Normal mediastinum and angela. Normal visualized pulmonary arteries. Normal visualized aortic arch and descending thoracic aorta. There are degenerative changes of the visualized thoracic spine. Normal visualized ribs, clavicles, and shoulders. There is postoperative change of the upper abdomen. RAD/Chest PA and Lateral IMPRESSION: Degenerative changes, as described above. No demonstrated acute cardiopulmonary process. Electronically Signed: Dimitrios Barton MD at 18:44 EST ,
--- NOTE | 2024-01-15 17:15 | RAD_ITS ---
STUDY: X-RAY - RIGHT WRIST REASON FOR EXAM: Female, 64 years old. Fall TECHNIQUE: 3 view(s) of the wrist were obtained. COMPARISON: None. FINDINGS: Normal visualized distal radius and ulna. Normal radiocarpal articulation. Normal distal radioulnar articulation. Normal carpal bones. Normal carpal articulations. Normal carpometacarpal articulation of the thumb. Normal second through fifth carpometacarpal articulations. Normal visualized metacarpal bones. The soft tissue structures are unremarkable. There is no demonstrated acute fracture. RAD/Wrist min 3 Views IMPRESSION: Normal x-ray examination of the wrist. Electronically Signed: Dimitrios Barton MD at 18:46 EST ,
[2024-01-15 17:27] LABS: Anion Gap 4 (5-15); BUN 22 mg/dL (7-18); BUN/Creat Ratio 19.3 RATIO (10-20); Calcium,Total 9.3 mg/dL (8.5-10.1); Chloride 106 mmol/L (98-107); Creatinine, Serum 1.14 mg/dL (0.55-1.02); EST Glomerular Filtration Rate 51 mL/min (>60); Est Glom Filt Rate - Afr Amer 62 mL/min (>60); Estimated Creatinine Clearance 53.95 ml/min; Glucose 103 mg/dL (74-106); Potassium 4.1 mmol/L (3.5-5.1); Sodium Level 139 mmol/L (136-145); Troponin-I HS 4 pg/mL (3.0-54.0)
== END 2024-01-15 19:31 | disposition home or self-care (01) ==
PROVIDERS: Nurse Practitioner; Emergency Provider Emergency Medicine; PCP Internal Medicine; Referring Provider Emergency Medicine; Visit Provider Emergency Medicine
DX: R55 Syncope and collapse (principal); E11.9 Type 2 diabetes mellitus without complications; E78.00 Pure hypercholesterolemia, unspecified; S20.20XA Contusion of thorax, unspecified, initial encounter; Z79.899 Other long term (current) drug therapy; Z90.49 Acquired absence of other specified parts of digestive tract; Z96.643 Presence of artificial hip joint, bilateral; S63.501A Unspecified sprain of right wrist, initial encounter; Y92.59 Other trade areas as the place of occurrence of the external cause; W01.198A Fall on same level from slipping, tripping and stumbling with subsequent striking against other object, initial encounter
CPT/HCPCS: 70450; 71046; 72125; 73110; 80048; 84484; 85025; 93005; 99284; A4216

== ENCOUNTER → 2025-01-31 | Outpatient (CLI) | payer MEDICARE, BC, SELFPAY ==
--- NOTE | 2025-01-31 08:51 | MRI_ITS ---
PROCEDURE: SPINE LUMBAR W/WO CONTRAST 01/31/2025 REASON FOR EXAM: PAIN WORSENING X2 YEARS, LEFT RADICULOPATHY Low back pain. TECHNIQUE: Procedure Code: [id number] Modality: MR Procedure: SPINE LUMBAR W/WO CONTRAST Multiplanar and multisequence images were obtained without and with intravenous gadolinium-based contrast administration. CONTRAST: Clariscan VOLUME: 18 mL COMPARISON: MR March 2023. FINDINGS: T10 through L1: Vertebral bodies: T12 hemangioma. Disk Space: Mild degenerate disc disease. Negative for Modic changes. Facet Joints: Negative for bilateral facet joint hypertrophy. Neural foramina: Negative for neural foraminal narrowing Spinal Canal: Negative for central spinal narrowing. L1-2: Vertebral bodies: Negative. Disk Space: Negative. Negative for Modic changes. Facet Joints: Mild bilateral facet joint hypertrophy. Neural foramina: Negative for neural foraminal narrowing Spinal Canal: Negative for subarticular zone narrowing. Negative for central spinal narrowing. L2-3: Vertebral bodies: Negative. Disk Space: Disc desiccation moderate loss of disc height. Mild posterior osteophyte disc complex. Facet Joints: Moderate bilateral facet joint hypertrophy. Neural foramina: [id number] left and moderate right neural foraminal narrowing Spinal Canal: Slight subarticular zone narrowing. Mild central spinal narrowing. L3-4: Vertebral bodies: Left-sided laminotomy. Disk Space: Disc desiccation with severe loss of disc height. Moderate posterior osteophyte disc complex. Negative for Modic changes. Facet Joints: Moderate bilateral facet joint hypertrophy. Neural foramina: Moderate left and mild right neural foraminal narrowing Spinal Canal: Negative for subarticular zone narrowing. Negative for central spinal narrowing. L4-5: Vertebral bodies: Negative. Disk Space: Disc desiccation moderate loss of disc height. Mild posterior osteophyte disc complex. Facet Joints: Mild bilateral facet joint hypertrophy. Neural foramina: Negative for neural foraminal narrowing Spinal Canal: Negative for subarticular zone narrowing. Negative for central spinal narrowing. L5-S1: Vertebral bodies: Negative. Disk Space: Negative. Negative for Modic changes. Facet Joints: Negative for bilateral facet joint hypertrophy. Neural foramina: Negative for neural foraminal narrowing Spinal Canal: Negative for subarticular zone narrowing. Negative for central spinal narrowing. Vertebrae: Normal bone marrow signal. Conus Medullaris: Spinal cord is normal and ends at L1-L2. No abnormal enhancement. Imaged kidneys aorta otherwise negative. The remainder of the exam negative. MRI/Spine Lumbar W/WO Contrast IMPRESSION: Degenerative changes lumbar spine overall most prominent L2-L3 and L3-L4 as abo ve. Little changed since the prior exam. Reading Location: [id number]
== END | disposition home or self-care (01) ==
PROVIDERS: PCP Internal Medicine; Referring Provider Student in an Organized Health Care Education/Training Program; Visit Provider Student in an Organized Health Care Education/Training Program
DX: M51.362 Other intervertebral disc degeneration, lumbar region with discogenic back pain and lower extremity pain (principal); M54.16 Radiculopathy, lumbar region; Z98.890 Other specified postprocedural states
CPT/HCPCS: 72158; A9575

== ENCOUNTER → 2025-02-11 | Outpatient (CLI) | payer MEDICARE, BC, SELFPAY ==
--- NOTE | 2025-02-11 08:16 | BD_ITS ---
PROCEDURE: DEXA BONE DENSITY/APPEND SKEL 02/11/2025 REASON FOR EXAM: OSTEOPOROSIS F, age 65 y/o . Patient is postmenopausal. History of adult fracture.. TECHNIQUE: Procedure Code: [id number] Modality: DX Procedure: DEXA BONE DENSITY/APPEND SKEL COMPARISON: None FINDINGS: BMD and T-SCORES Left 1/3 radius: 0.784 g/cm2, T-score 1.5 Right 1/3 radius: 0.748 g/cm2, T-score 0.9 The World Health Organization has defined the following categories based on bone density: Normal bone density: T-score equal to or greater than -1.0 Osteopenia: T-score between -1.0 and -2.5 Osteoporosis: T-score equal to or less than -2.5 FRAX (or Comparable) Fracture Risk Assessment: FRAX not reported due to no reportable hip. (Note: FRAX is not to be reported in setting of normal range bone density, osteoporosis on DEXA, known history of osteoporosis, prior osteoporotic hip or vertebral fracture, or for any patient undergoing pharmacological treatment for bone loss.) The National Osteoporosis Foundation (NOF) recommends pharmacological treatment for patients with a FRAX 10-year risk of 3% or higher for a hip fracture, or 20% or higher for a major osteoporotic fracture, to prevent osteoporosis and reduce fracture risk. The patient does not meet the pharmacological treatment recommendations for prevention of osteoporosis. BD/Dexa Bone Density/Append Skel IMPRESSION: NORMAL T-SCORES. Recommend follow-up in 1 year. Reading Location: [id number]
== END | disposition home or self-care (01) ==
LOC: OPBD 08:13
PROVIDERS: PCP Internal Medicine; Referring Provider Student in an Organized Health Care Education/Training Program; Visit Provider Student in an Organized Health Care Education/Training Program
DX: M81.0 Age-related osteoporosis without current pathological fracture (principal)
CPT/HCPCS: 77081